=== PATIENT | female | born 1975 | race Caucasian/White ===

== ENCOUNTER → 2018-11-24 12:27 | Outpatient (CLI) | payer OTHER, SELFPAY ==
[2018-06-03 11:37] VITALS: BMI 20.7
--- NOTE | 2018-11-24 | IMM_PTH ---
PATIENT: MELODIE OSEI LOC: [facility] U#:[id number] AGE/SX: 49/F ROOM: RE11/24/[address]: Dr. Ramiro Morgan DDS : 1975 BED: DIS: SPEC #: [id number] RECD: 11/25/18 11:03 STATUS: KIKE SAMANTHA #: [id number] TIFFANIE: 11/24/18 00:[address]: Ramiro Morgan DEPT: IMMUNOHISTOCHEMISTRY RECD BY: Myriam Dumont ENTERED: 11/25/18 11:04 SP TYPE: IMMUNO OTHR DR: Leidy Amador, MOVING WORKER-Gwyn Tissues: Skin of lip, NOS Procedures: MACRO (add) Vimentin (add) Pankeratin (initial) PHYSICIAN & INSTITUTION [place] [id number] SPECIMEN INFORMATION: Tissue Source: Skin of lower lip, biopsy Clinical Info: Three-month history Specimen Number: [id number] CPT code: 93211, 63156 x2 METHODOLOGY: Deparaffinized sections of prefer/formalin-fixed tissue or PAP/DQ stained slides are incubated with monoclonal/polyclonal antibodies/oligonucleotide probes. Localization is made via biotin free immunoperoxidase method. Appropriate controls are performed and reacted as expected. Results on target cell population are indicated in the following table: RESULTS: ANTIBODY / CLONE RESULT AE1-3 (AE1/AE3/PCK26) negative Vimentin (V9) positive Macro (HAM-56) positive These tests were developed and their performance characteristics determined by [facility]. They may not have been cleared or approved by the U.S. Food and Drug Administration. The FDA has determined that such clearance or approval is not necessary. The above immunohistochemical/dualISH markers are ordered and reviewed by the Pathologist. INTERPRETATION: Skin of lower lip, biopsy: Consistent with reactive and reparative change. AM:otis 11/26/18
--- NOTE | 2018-11-24 | LIP_PTH ---
PATIENT: MELODIE OSEI LOC: [facility] U#:[id number] AGE/SX: 49/F ROOM: RE11/24/[address]: Dr. 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 Fibrosis, chronic inflammation and histiocytic proliferation. No evidence of malignancy. See comment. AM:otis 11/25/18 COMMENT The findings may represent a ruptured and/or blocked duct with associated inflammation and reactive fibrosis. Clinical correlation is suggested. Iron stain with matched control reveals focal iron deposition consistent with reactive change. Immunohistochemistry ([id number]) supports the above diagnosis. Case has been reviewed in consultation with Dr. Chilel who concurs with the above diagnosis. IDC:[email or web address] MICROSCOPIC DESCRIPTION Slides are reviewed. GROSS DESCRIPTION Received in fixative is one container labeled with the patient's name and designated lower lip. The specimen consists of two pieces of delvalle mucosal tissue measuring in aggregate 1 x 0.3 x 0.2 cm. The entire specimen is submitted in one cassette. / NIRAJ:otis 11/24/18 TC:3 CPT: 71897, 62524
== END ==
PROVIDERS: Family Provider Nurse Practitioner; PCP Nurse Practitioner; Referring Provider Dentist Oral and Maxillofacial Surgery; Visit Provider Dentist Oral and Maxillofacial Surgery
DX: K11.8 Other diseases of salivary glands (principal); K13.5 Oral submucous fibrosis
CPT/HCPCS: 88304; 88305; 88313; 88341; 88342

== ENCOUNTER → 2019-04-26 09:02 | Outpatient (CLI) | payer OTHER, SELFPAY ==
[2019-03-01 13:13] VITALS: BMI 20.7
--- NOTE | 2019-04-26 09:06 | US_ITS ---
STUDY: THYROID ULTRASOUND REASON FOR EXAM: Female, 43 years old. Thyromegaly on exam. TECHNIQUE: Ultrasound evaluation of the thyroid was performed with real-time and static perry-scale imaging. COMPARISON: None. FINDINGS: RIGHT LOBE: The right lobe of the thyroid gland measures 5.4 x 2.2 x 1.5 cm. There is a homogeneous echotexture. Mixed solid and cystic nodule in the mid thyroid lobe measures 1.9 x 1.4 x 1.1 cm. 2 solid hyperechoic nodules measuring 0.7 x 0.7 x 0.4 cm and 0.8 x 0.8 x 0.5 cm respectively are also located in the right mid thyroid lobe. These nodules have irregular margins with intranodular Doppler vascularization. LEFT LOBE: The left lobe of the thyroid gland measures 4.9 x 2.0 x 1.2 cm. There is a homogeneous echotexture. Mixed solid and cystic nodule in the upper pole measuring 1.6 x 1.1 x 0.8 cm. This has irregular margins with intranodular Doppler vascularization. Smaller second solid nodule in the middle portion of the gland measuring 0.4 x 0.5 x 0.2 cm. This has regular margins with intranodular Doppler vascularization. ISTHMUS: The isthmus measures 3 mm. US/Thyroid IMPRESSION: 1. Mixed solid and cystic nodule in the right mid thyroid lobe measures 1.9 x 1.4 x 1.1 cm. This is feasible for ultrasound-guided FNA biopsy. 2. Small solid thyroid nodules in the right thyroid lobe measure 0.7 x 0.7 x 0.4 cm and 0.8 x 0.8 x 0.5 cm. These are also in the right mid thyroid lobe. They are too small for ultrasound-guided FNA. 3. Mixed solid and cystic nodule in the left mid thyroid lobe measures 1.6 x 1.1 x 0.8 cm. This is feasible for ultrasound-guided FNA biopsy if desired. 4. Small solid thyroid nodule in the upper pole of the left thyroid lobe measures 0.4 x 0.5 x 0.2 cm. This is too small for ultrasound-guided FNA. Electronically Signed: Louie Phillips MD at 9:09 EDT , Service support ,
== END ==
PROVIDERS: PCP Nurse Practitioner; Referring Provider Nurse Practitioner; Visit Provider Nurse Practitioner
DX: E04.9 Nontoxic goiter, unspecified (principal)
CPT/HCPCS: 76536

== ENCOUNTER → 2019-06-06 | Outpatient (CLI) | payer OTHER, SELFPAY ==
[2019-06-06 13:29] VITALS: BMI 20.7
--- NOTE | 2019-06-07 | ASPS_PTH ---
PATIENT: MELODIE OSEI [facility] U#:[id number] AGE/SX: 43/F ROOM: RE06/06/[address]: Dr. Bishop Devlin MD : 1975 BED: DIS: 06/06/2019 SPEC #: [id number] RECD: 06/07/19 12:00 STATUS: KIKE SINGH #: [id number] TIFFANIE: 06/07/19 00:[address]: Bishop Devlin DEPT: CYTOLOGY RECD BY: Toby Mclaughlin ENTERED: 06/07/19 12:00 SP TYPE: ASPIRATION OTHR DR: Leidy Amador, PUBLIC AFFAIRS DIRECTOR-Gwyn Tissues: A - Thyroid gland, NOS B - Thyroid gland, NOS Procedures: Special Stain Group II Cytology Other HEADER OPERATION: Ultrasound-guided fine needle aspiration bilateral thyroid PRE-OP DIAGNOSIS: Multinodular goiter E04.2 TISSUE SUBMITTED: A - Fine needle aspiration right thyroid slides x12, B - Fine needle aspiration left thyroid slides x12 DIAGNOSIS CYTOLOGY A. Right thyroid nodule, ultrasound-guided FNA (smears): Consistent with benign follicular nodule/colloid nodule. Adequate for evaluation. B. Left thyroid nodule, ultrasound-guided FNA (smears): Consistent with benign follicular nodule/colloid nodule with focal cystic changes. Adequate for evaluation. NIRAJ:otis 06/08/19 COMMENT Correlation with clinical, radiologic findings and appropriate follow up are necessary. CYTOLOGY STUDY Slides are reviewed. CYTOLOGY GROSS A - Received are 12 smears labeled with the patient's name and designated per the requisition as right thyroid. Submitted for staining. B - Received are 12 smears labeled with the patient's name and designated per the requisition as left thyroid. Submitted for staining. / otis 06/07/19 TC:5 CPT: 41726 x2
== END | disposition home or self-care (01) ==
LOC: LABSPEC 15:23
PROVIDERS: PCP Nurse Practitioner; Referring Provider Surgery; Visit Provider Surgery
DX: E04.2 Nontoxic multinodular goiter (principal)
CPT/HCPCS: 88161; 88313

== ENCOUNTER 2020-06-07 07:11 | Outpatient (RCR) | payer OTHER, SELFPAY ==
[2019-06-06 13:29] VITALS: BMI 20.7
== END 2020-07-24 23:59 ==
LOC: IMMUN 07:11
PROVIDERS: PCP Nurse Practitioner; Referring Provider Family Medicine; Visit Provider Family Medicine
DX: Z23 Encounter for immunization (principal)
CPT/HCPCS: 0001A; 91300

== ENCOUNTER → 2020-10-08 13:01 | Outpatient (CLI) | payer OTHER, SELFPAY ==
[2019-06-06 13:29] VITALS: BMI 20.7
--- NOTE | 2020-10-08 13:04 | US_ITS ---
STUDY: THYROID ULTRASOUND REASON FOR EXAM: Female, 44 years old. MULTIPLE THYROID NODULES TECHNIQUE: Ultrasound evaluation of the thyroid was performed with real-time and static perry-scale imaging. COMPARISON: Comparison is made with prior study of 04/26/2019. FINDINGS: RIGHT LOBE: The right lobe of the thyroid gland is enlarged and measures 5.3 cm x 2.4 cm x 1.04 cm. There is a homogeneous echotexture. Stable 2 cm x 1.5 cm x 1.1 cm solid nodule with small cysts within it is once again seen in the mid and lower pole of the right lobe. There are 2 stable slightly hyperechoic nodules in the right mid thyroid. The larger measures 8 mm x 7 mm x 8 mm. LEFT LOBE: The left lobe of the thyroid gland is mildly enlarged and measures 4.9 cm x 2 cm x 1 cm. There is a homogeneous echotexture. Limits again, 4 nodules are seen. The largest measures 1.8 cm x 1.3 cm x 0.8 cm. It is mostly solid and cystic nodules in the upper pole. ISTHMUS: The isthmus measures 2 mm. The regional lymph nodes are normal. US/Thyroid IMPRESSION: Enlargement of both lobes of the thyroid more prominent on the right side with stable bilateral thyroid nodules. Electronically Signed: Rafi Maria MD at 14:44 EDT , Service support ,
== END ==
PROVIDERS: PCP Nurse Practitioner; Referring Provider Nurse Practitioner; Visit Provider Nurse Practitioner
DX: E04.2 Nontoxic multinodular goiter (principal)
CPT/HCPCS: 76536

== ENCOUNTER → 2021-01-28 16:24 | Outpatient (CLI) | payer OTHER, SELFPAY | PROVIDERS: PCP Nurse Practitioner; Visit Provider Family Medicine | DX: Z23 Encounter for immunization (principal) ==

== ENCOUNTER → 2022-03-06 | Outpatient (CLI) | payer OTHER, SELFPAY ==
--- NOTE | 2022-03-06 15:29 | US_ITS ---
EXAM: US SOFT TISSUES HEAD AND NECK, THYROID CLINICAL INDICATION: multiple thyroid nodules TECHNIQUE: Thomas scale and color doppler imaging was performed of the thyroid gland. This report was created using [employer] report generation technology. COMPARISON: US Thyroid dated 10/08/2020 and 04/26/2019 FINDINGS: LEFT THYROID LOBE: Left thyroid lobe measures 5.2 x 2.1 x 1.3 cm. Multinodular echo pattern. Dominant 18 mm left thyroid nodule again noted to be solid and cystic in nature, wider than tall with ill-defined margins and without microcalcification consistent with TI-RADS category: TR2. This nodule is not suspicious and no FNA or follow-up is necessary. Stable additional 6 mm nodule within the upper pole of the left lobe. RIGHT THYROID LOBE: Right thyroid lobe measures 5.8 x 2.4 x 1.7 cm. Multinodular echotexture. Dominant nodule within the right lobe appears slightly larger on the current exam measuring 2.4 cm in maximum diameter. This nodule is mixed cystic and solid, isoechoic, wheke-urms-gbtn, smoothly marginated and contains no echogenic foci. TI-RADS points: 2. TI-RADS category: TR2. This nodule is not suspicious and no FNA or follow-up is necessary. Additional 1.1 and 0.6 cm more solid right thyroid nodules not significantly changed in size from prior exam. These nodules are solid or almost completely solid, isoechoic, [id number], smoothly marginated and contains a no echogenic foci. TI-RADS points: 3. TI-RADS category: TR3. Nodules are mildly suspicious but no FNA or follow-up is necessary given the small size of this nodule. ISTHMUS: Isthmus measures 2.4 mm in AP dimension. No thyroid nodules are present. US/Thyroid IMPRESSION: Bilateral thyroid nodules with mild interval increase of the dominant right nodule. See discussion above. Electronically Signed: Nolan Stockton MD at 8:24 EST ,
== END | disposition home or self-care (01) ==
LOC: US 15:28
PROVIDERS: PCP Nurse Practitioner Family; Referring Provider Nurse Practitioner Family; Visit Provider Nurse Practitioner Family
DX: E04.2 Nontoxic multinodular goiter (principal)
CPT/HCPCS: 76536

== ENCOUNTER → 2023-05-22 | Outpatient (CLI) | payer OTHER, SELFPAY ==
--- NOTE | 2023-05-22 12:45 | US_ITS ---
STUDY: THYROID ULTRASOUND REASON FOR EXAM: Female, 47 years old. multiple thyroid nodules TECHNIQUE: Ultrasound evaluation of the thyroid was performed with real-time and static perry-scale imaging. COMPARISON: None. FINDINGS: RIGHT LOBE: The right lobe of the thyroid gland measures 5.8 x 2.5 x 1.6 cm. There is a heterogeneous echotexture. There are stable complex solid and cystic nodules largest again measures approximately 2.4 x 2.0 x 1.4 cm. Nodules are mixed cystic and solid, hyperechoic or isoechoic, gznzs-arvp-umja, smoothly marginated and contains no echogenic foci. TI-RADS points: 2. TI-RADS category: TR2. Nodules are not suspicious and no FNA or follow-up is necessary. LEFT LOBE: The left lobe of the thyroid gland measures 5.5 x 2.0 x 1.3 cm. There is a heterogeneous echotexture. There is a stable 0.7 x 0.6 x 0.3 cm hypoechoic nodule. This nodule is solid or almost completely solid, hypoechoic, kvvyf-mydg-axji, smoothly marginated and contains no echogenic foci. TI-RADS points: 4. TI-RADS category: TR4. This nodule is moderately suspicious but no FNA or follow-up is necessary given the small size of this nodule.And a stable solid and cystic 2.0 x 1.6 x 1.0 cm nodule. This nodule is mixed cystic and solid, hyperechoic or isoechoic, aqjav-[id number], smoothly marginated and contains no echogenic foci. TI-RADS points: 2. TI-RADS category: TR2. This nodule is not suspicious and no FNA or follow-up is necessary. ISTHMUS: The isthmus measures 0.3 cm. The regional lymph nodes are normal. Managing Manager notes a likely parathyroid nodule measuring 1.8 x 0.8 x 0.8 cm inferior to the left thyroid lobe. US/Thyroid IMPRESSION: Stable enlarged heterogeneous thyroid gland with bilateral nodules as described. Categorization and follow-up as described. Likely parathyroid nodule noted inferior to the left thyroid lobe. Electronically Signed: Paidlla Miller MD at 15:43 EDT ,
== END | disposition home or self-care (01) ==
LOC: US 12:44
PROVIDERS: PCP Nurse Practitioner Family; Referring Provider Nurse Practitioner Family; Visit Provider Nurse Practitioner Family
DX: E04.2 Nontoxic multinodular goiter (principal)
CPT/HCPCS: 76536

== ENCOUNTER → 2025-02-06 | Outpatient (CLI) | payer OTHER, SELFPAY ==
[2025-02-06 10:42] LABS: Hematocrit 41.1 % (37-47); Hemoglobin 13.7 g/dL (12.0-15.0); Immature Granulocytes Count 0.010 X10^3/uL (0.0-0.0); Mean Corp Hgb Conc 33.3 g/dL (32-36); Mean Corpuscular Volume 91.1 fL (81-99); Mean Platelet Vol. 8.6 fl (6.2-12.0); NRBC Flagged by Analyzer 0 % (0-5); Platelet Count 274 K/mm3 (150-450); RBC Distribution Width CV 11.8 % (11.6-14.6); RBC Distribution Width SD 39.8 fl (35.1-43.9); Red Blood Count 4.51 M/mm3 (4.2-5.4); White Blood Count 5.2 K/mm3 (4.4-11.0)
[2025-02-06 10:54] LABS: PTHIN 50 pg/mL (11-61)
[2025-02-06 11:20] LABS: AST(SGOT) 15 U/L (<=31); Alanine Aminotransfer ALT/SGPT 9 U/L (<=34); Albumin, Serum 4.5 g/dL (3.5-5.0); Alkaline Phosphatase 44 U/L (35-104); Anion Gap 11 (5-15); BUN 13 mg/dL (4-19); BUN/Creat Ratio 16.0 RATIO (10-20); Calcium,Total 9.3 mg/dL (7.6-11.0); Carbon Dioxide 24.4 mmol/L (21.0-32.0); Chloride 104 mmol/L (98-108); Cholesterol 222 mg/dL (<=200); Ferritin 81 ng/mL (22-378); Follicle Stimulating Hormone 8.1 mIU/mL; Globulin 2.9 g/dL (2.2-4.2); Glucose 106 mg/dL (70-99); Low Density Lipoprotein Calc. 155 mg/dL; Potassium 4.1 mmol/L (3.3-5.1); Triglycerides 145 mg/dL; Very Low Density Lipoprotein 29 mg/dL (5-40); Vitamin D,25 Hydroxy 28.4 ng/mL (30-100); cholesterol:hdl ratio screen 5.41
[2025-02-06 11:35] LABS: Iron 192 ug/dL (50-170)
== END | disposition home or self-care (01) ==
LOC: MTLAB 09:25
PROVIDERS: PCP Family Medicine; Referring Provider Family Medicine; Visit Provider Family Medicine
DX: Z13.1 Encounter for screening for diabetes mellitus (principal); Z13.220 Encounter for screening for lipoid disorders; R42 Dizziness and giddiness; E04.1 Nontoxic single thyroid nodule; E21.5 Disorder of parathyroid gland, unspecified; N95.1 Menopausal and female climacteric states
CPT/HCPCS: 36415; 80053; 80061; 82306; 82728; 83001; 83002; 83036; 83540; 83970; 84439; 84443; 85025

== ENCOUNTER → 2025-02-11 | Outpatient (CLI) | payer OTHER, SELFPAY ==
--- OUTSIDE RECORDS SUMMARY | 2025-02-11 07:53 | XMS RPT_ITS | CCD ---
Author Organization [facility] Care Team Providers Care Service Worker Helper Name Role Phone Leidy Amador E Unavailable Bishop Wyman Unavailable Sintia Mckenzie Unavailable Unavailable Chantal Delgado Unavailable Unavailable Chantal Motley Unavailable Unavailable Slarb, Rosetta Unavailable Unavailable Unavailable Unavailable Nghia Jefferson Unavailable Unavailable Unavailable Unavailable Sintia Mckenzie Unavailable Unavailable Leidy Amador CNP Unavailable Bishop Wyman MD Unavailable Yana KOHLER, Rosetta Unavailable Unavailable Nghia Jefferson LPN Unavailable Unavailable Unavailable Unavailable Effie Bran CNP Unavailable Effie Bran CNP Unavailable Marjorie Leidy Unavailable Wily Kwon MA Unavailable Unavailable Effie Bran CNP Attending Unavailable Effie Bran CNP Referring Unavailable Effie Bran CNP Consulting Unavailable Leidy Amador CNP Primary Care Provider Leidy Amador CNP Primary Care Provider JESSICA Bran Primary Care Provider [phone] JESSICA Bran Referring Provider Dr. Loreto Story Attending Provider Effie Bran CNP Primary Care Provider Effie Bran CNP Primary Care Provider SHANT, EFFIE Primary Care Unavailable BALAJI, BISHOP P Attending Unavailable SHANT, EFFIE Primary Care Unavailable BALAJI, BISHOP P Referring Unavailable SHANT, EFFIE Primary Care Unavailable BALAJI, BISHOP P Referring Unavailable SHANT, EFFIE Primary Care Unavailable BALAJI, BISHOP P Referring Unavailable SHANT, EFFIE Primary Care Unavailable BALAJI, BISHOP P Attending Unavailable Unallocated , Noelle Provider Primary Care [facility] JANETT LIU Attending Unavailable SHANT, EFFIE Referring Unavailable SHANT, EFFIE Primary Care Unavailable SHANT, EFFIE Primary Care Unavailable JANETT LIU Referring Unavailable Shant ELECTRON GUN ASSEMBLER-C, Effie Primary Care Provider Shant ELECTRON GUN ASSEMBLER-C, Effie Referring Provider Dosjaida GONZALEZ, Dr. Dangelo Attending Provider [phone] Austin Still MD Unavailable NONE, NONE Unavailable Unavailable Shant FOREIGN SERVICE OFFICER, Effie Unavailable Shant ELECTRON GUN ASSEMBLER-C, Effie Primary Care Physician Dosjaida GONZALEZ, Dr. Dangelo Attending Physician [phone] Shant ELECTRON GUN ASSEMBLER-C, Effie Primary Care Physician [phone] Shant ELECTRON GUN ASSEMBLER-C, Effie Referring Provider Dosjaida GONZALEZ, Dr. Dangelo Attending Physician [phone] Loreto Story Attending Unavailable Shant, Effie Referring Unavailable Shant, Effie Primary Care Unavailable Loreto Story Attending Unavailable Shant, Effie Referring Unavailable Shant, Effie Primary Care Unavailable DosLoreto sena Attending Unavailable Shant, Effie Primary Care Unavailable Shant, Effie Referring Unavailable Shant, Effie Primary Care Unavailable Loreto Story Attending Unavailable Shant, Effie Referring Unavailable Shant, Effie Primary Care Unavailable Loreto Story Attending Unavailable Shant, Effie Referring Unavailable DosLoreto sena Attending Unavailable Shant, Effie Referring Unavailable Shant, Effie Primary Care Unavailable Medications Current Medications Medication Drug Class(es) Dates Sig (Normalized) Sig (Original) doxycycline hyclate 20 mg oral tablet (5 sources) Tetracycline-clas s Drug Start: 06-02-2022 Doxycycline Hyclate 20 mg tablet Active NMA PO June 01, 2022 11:00pm Complies with drug therapy Start: 06-02-2022 Doxycycline Hy clate Active TAB PO June 02, 2022 12:00am doxycycline hycl ate 50 mg oral capsule (50 mg) Active Comments: Dr. Chauhan Comment on above: Dr. Chauhan ibuprofen 600 mg oral tablet (5 sources) Nonsteroidal Anti-inflammatory Drug Start: 01-26-2017 take 1 tablet by mouth once Ibuprofen 600 mg tablet Active 600 mg PO ONCE January 26, 2017 12:00am Complies with drug therapy Completed/Discontinued Medications Medication Drug Class(es) Dates Sig (Normalized) Sig (Original) acyclovir 400 mg oral tablet (14 sources) Herpesvirus Nucleoside Analog DNA Polymerase Inhibitor, Herpes Simplex Virus Nucleoside Analog DNA Polymerase Inhibitor, Herpes Zoster Virus Nucleoside Analog DNA Polymerase Inhibitor Start: 08-03-2019 End: 08-09-2019 take 1 tablet by mouth three times daily Zovirax 400 MG Oral Tablet 1 (one) Tablet tid for 6 days Quantity: 15 {Tablet} Refills: 0 Ordered: 03-Aug-2019 BinduLeidy garcia Start : 03-Aug-2019 End : 09-Aug-2019 Inactive Start: 08-22-2016 End: 02-17-2017 take 1 tablet by mouth three times daily Acyclovir 400 MG Oral Tablet 1 (one) Tablet Tablet tid for 5 days Quantity: 15 {QS} Refills: 3 Ordered: 17-Feb-2017 Chantal Motley RN Start : 22-Aug-2016 End : 17-Feb-2017 Inactive amoxicillin 875 mg / clavulanate 125 mg oral tablet (18 sources) Penicillin-class Antibacterial Start: 04-12-2018 End: 04-26-2018 take 1 tablet by mouth twice daily Amoxicillin-Pot Clavulanate 875-125 MG Oral Tablet 1 (one) Tablet PO BID for 14 days Quantity: 28 {Tablet} Refills: 0 Ordered: 12-Apr-2018 Chantal Delgado Start : 12-Apr-2018 End : 26-Apr-2018 Inactive Start: 02-17-2017 End: 03-03-2017 take 1 tablet by mouth twice daily Augmentin 875-125 MG Oral Tablet 1 (one) Tablet bid for 14 days Quantity: 28 {Tablet} Refills: 0 Ordered: 17-Feb-2017 Chantal Delgado Start : 17-Feb-2017 End : 03-Mar-2017 Inactive bifidobacterium infantis 4 mg oral capsule (9 sources) Start: 07-04-2016 End: 02-17-2017 take 1 capsule by mouth once daily Align 4 MG Oral Capsule 1 (one) Capsule daily for 0 days Quantity: 30 {Capsule} Refills: 0 Ordered: 17-Feb-2017 Chantal Motley RN Start : 04-Jul-2016 End : 17-Feb-2017 Inactive cholecalciferol 0.025 mg oral capsule (14 sources) Vitamin D Start: 04-29-2019 End: 10-02-2020 take 2 capsules by mouth once daily Vitamin D3 25 MCG (1000 UT) Oral Capsule 2 (two) Capsule daily for 0 days Quantity: 60 {Capsule} Refills: 0 Ordered: 02-Oct-2020 Gisela Daniels LPN Start : 29-Apr-2019 End : 02-Oct-2020 Inactive Start: 09-05-2014 End: 05-01-2015 take 1 capsule by mouth every week VITAMIN D3, 2000UNIT (Oral Capsule) 1 (one) Capsule weekly for 0 days Quantity: 30 {Capsule} Refills: 0 Ordered: 01-May-2015 Rosetta Millan LPN Start : 05-Sep-2014 End : 01-May-2015 Discontinued ciprofloxacin 500 mg oral tablet (9 sources) Quinolone Antimicrobial Start: 07-30-2017 End: 08-06-2017 take 1 tablet by mouth twice daily Cipro 500 MG Oral Tablet 1 (one) Tablet bid for 7 days Quantity: 14 {Tablet} Refills: 0 Ordered: 30-Jul-2017 Leidy Amador Start : 30-Jul-2017 End : 06-Aug-2017 Inactive ergocalciferol 1.25 mg oral capsule (9 sources) Provitamin D2 Compound Start: 06-06-2014 End: 09-05-2014 take 1 capsule by mouth two times weekly ERGOCALCIFEROL, [id number] (Oral Capsule) 1 (one) Capsule Capsule twice weekly for 0 days Quantity: 24 {QS} Refills: 0 Ordered: 05-Sep-2014 Rosetta Millan LPN Start : 06-Jun-2014 End : 05-Sep-2014 Discontinued nitrofurantoin, macrocrystals 25 mg / nitrofurantoin, monohydrate 75 mg oral capsule (9 sources) Nitrofuran Antibacterial Start: 09-04-2020 End: 09-11-2020 take 1 capsule by mouth twice daily Macrobid 100 MG Oral Capsule 1 (one) Capsule bid for 7 days Quantity: 14 {Capsule} Refills: 0 Ordered: 04-Sep-2020 Leidy Amador Start : 04-Sep-2020 End : 11-Sep-2020 Inactive Start: 02-20-2020 take 1 capsule by mo [facility] twice daily Macrobid 100 MG Oral Capsule 1 (one) Capsule bid for 7 days Quantity: 14 {Capsule} Refills: 0 Ordered: 20-Feb-2020 Leidy Amador CNP ALONDRALeidy Start : 20-Feb-2020 Active Start: 07-24-2017 End: 07-31-2017 take 1 capsule by mouth twice daily Macrobid 100 MG Oral Capsule 1 (one) Capsule bid for 7 days Quantity: 14 {Capsule} Refills: 0 Ordered: 24-Jul-2017 Binducastillocrescencio CANTULeidy ALONDRA Leidy Worthy Start : 24-Jul-2017 End : 31-Jul-2017 Inactive ondansetron 8 mg oral tablet (3 sources) Serotonin-3 Receptor Antagonist Start: 03-03-2022 End: 03-08-2024 take 1 tablet by mouth once daily for nausea and vomiting ondansetron (Zofran) 8 MG tablet take 1 tablet by mouth once daily if needed for nausea and vomiting 03/03/2022 03/08/2024 Discontinued phenazopyridine hydrochloride 100 mg oral tablet (9 sources) Start: 09-04-2020 End: 09-06-2020 take 1 tablet by mouth three times daily Pyridium 100 MG Oral Tablet 1 (one) Tablet tid for 2 days Quantity: 6 {Tablet} Refills: 0 Ordered: 04-Sep-2020 Leidy Amador Start : 04-Sep-2020 End : 06-Sep-2020 Inactive Start: 02-20-2020 take 1 tablet by [facility] three times daily Pyridium 100 MG Oral Tablet 1 (one) Tablet tid for 2 days Quantity: 6 {Tablet} Refills: 0 Ordered: 20-Feb-2020 Marjorie ALONDRALeidy FOREIGN SERVICE OFFICERLeidy Start : 20-Feb-2020 Active Start: 07-24-2017 End: 07-26-2017 take 1 tablet by mouth three times daily Pyridium 100 MG Oral Tablet 1 (one) Tablet tid for 2 days Quantity: 6 {Tablet} Refills: 0 Ordered: 24-Jul-2017 Leidy Amador CNP, CNP, Mary E Start : 24-Jul-2017 End : 26-Jul-2017 Inactive sulfamethoxazole 800 mg / trimethoprim 160 mg oral tablet (9 sources) Dihydrofolate Reductase Inhibitor Antibacterial, Sulfonamide Antimicrobial Start: 02-04-2016 End: 02-11-2016 take 1 tablet by mouth twice daily Bactrim DS 800-160 MG Oral Tablet 1 (one) Tablet bid for 7 days Quantity: 14 {Tablet} Refills: 0 Ordered: 04-Feb-2016 Leidy Amador Start : 04-Feb-2016 End : 11-Feb-2016 Inactive NEGATED: Highlighted row has not occurred!drug or medication (2 sources) No Known Historical Medications NEGATED: Highlighted row has not occurred!No Known Historical Medications (2 sources) No Known Historical Medications Problems Active Problems Problem Classification Problem Date Documented Date Episodic/Chronic Coronary atherosclerosis and other heart disease (20 sources) Coronary atherosclerosis and other heart disease Deficiency and other anemia (6 sources) Deficiency and other anemia Disorders of lipid metabolism (6 sources) Raised low density lipoprotein cholesterol; Translations: [Elevated LDL cholesterol level] 10-12-2020 Chronic Comment on above: with low hdl told to repeat fasting in a year.Get labs a week before next apt inAug 2021, to call for apt and adding lab recheck lipids since has been a year and a halflow HDL and mildly elevated LDL in past, no meds. Genitourinary symptoms and ill-defined conditions (20 sources) Urinary symptoms ; Translations: [Blood in urine] Resolved: 04-15-2019 04-12-2018 Episodic Comment on above: from menses? Headache; including migraine (8 sources) Cervicogenic headache; Translations: [Cervicogenic headache] Onset: 12-29-2024 05-17-2024 Episodic Malaise and fatigue (10 sources) Fatigue; Translations: [Fatigue] 02-20-2020 Episodic Nausea and vomiting (18 sources) Nausea; Translations: [Nausea] Resolved: 07-24-2017 07-24-2017 Episodic Noninfectious gastroenteritis (18 sources) Gastroenteritis; Translations: [Gastroenteritis] 04-12-2018 Episodic Comment on above: early on in illness now resolved (from food seafood eating out)Check electrolytes and orthostatic BP Nutritional deficiencies (20 sources) Vitamin D deficiency; Translations: [Vitamin D deficiency] 04-12-2018 Chronic Comment on above: resolved Other bone disease and musculoskeletal deformities (20 sources) Segmental and somatic dysfunction; Translations: [Segmental and somatic dysfunction of cervical region] 01-26-2017 Episodic Other bone disease and musculoskeletal deformities (2 sources) Segmental and somatic dysfunction of cervical region; Translations: [Nonallopathic lesions, cervical region] Onset: 12-29-2024 05-19-2023 Episodic Other bone disease and musculoskeletal deformities (2 sources) Segmental and somatic dysfunction of lumbar region; Translations: [Nonallopathic lesions, lumbar region] Onset: 12-29-2024 05-19-2023 Episodic Other bone disease and musculoskeletal deformities (2 sources) Segmental and somatic dysfunction of pelvic region; Translations: [Nonallopathic lesions, pelvic region] Onset: 12-29-2024 05-19-2023 Episodic Other bone disease and musculoskeletal deformities (2 sources) Segmental and somatic dysfunction of thoracic region; Translations: [Nonallopathic lesions, thoracic region] Onset: 12-29-2024 05-19-2023 Episodic Other connective tissue disease (2 sources) Muscle pain; Translations: [Myalgia, unspecified site] Onset: 10-11-2024 10-11-2024 Episodic Other endocrine disorders (2 sources) Disorder of parathyroid gland; 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 Other injuries and conditions due to external causes (2 sources) Motion sickness; Translations: [Motion sickness] 03-03-2022 Episodic Other lower respiratory disease (2 sources) Snoring; Translations: [Snoring] 03-03-2022 Episodic Comment on above: wants to hold off on sleep study. BP a little up today but will monitor. she would be a good candidate for home sleep study if needed.mainly when lays on back. spouse possibly waking her multiple times per night, he snores as well. Other non-traumatic joint disorders (10 sources) Joint pain; Translations: [Arthralgia] Resolved: 04-15-2019 04-12-2018 Episodic Comment on above: work up lupus Other nutritional; endocrine; and metabolic disorders (2 sources) Body mass index 25-29 - overweight; Translations: [BMI 25.0-25.9,adult] 02-20-2020 Chronic Other nutritional; endocrine; and metabolic disorders (4 sources) Cholesterol level - finding; Translations: [Low HDL (under 40)] 10-12-2020 Chronic Comment on above: to improve diet, rep eat in ayear Other nutritional; endocrine; and metabolic disorders (6 sources) Weight gain; Translations: [Weight gain] 02-20-2020 Episodic Other nutritional; endocrine; and metabolic disorders (2 sources) Raised low density lipoprotein cholesterol; Translations: [Elevated LDL cholesterol level] 02-20-2020 Episodic Other nutritional; endocrine; and metabolic disorders (1 source) Body mass index 25-29 - overweight; Translations: [BMI 25.0-25.9,adult] 10-11-2020 Episodic Other nutritional; endocrine; and metabolic disorders (3 sources) Overweight in adulthood with body mass index of 25 or more but less than 30; Translations: [BMI 25.0-25.9,adult] 10-11-2020 Episodic Other screening for suspected conditions (not mental disorders or infectious disease) (20 sources) Patient encounter status; Translations: [Encounter for screening mammogram for breast cancer (Renamed from Encounter for screening mammogram for malignant neoplasm of breast)] Onset: 06-22-2024 10-11-2020 Episodic Comment on above: normal Other skin disorders (10 sources) Eruption; Translations: [Rash] Resolved: 07-24-2017 07-24-2017 Episodic Comment on above: viral ? will observe Other upper respiratory disease (20 sources) Nasal congestion; Translations: [Nasal congestion] Resolved: 07-24-2017 02-17-2017 Episodic Other upper respiratory disease (10 sources) Nasal discharge; Translations: [Nasal drainage] Resolved: 04-15-2019 04-12-2018 Episodic Other upper respiratory infections (20 sources) Chronic sinusitis, unspecified; Translations: [Bacterial sinusitis] Resolved: 04-15-2019 04-12-2018 Chronic Other upper respiratory infections (18 sources) Acute sinusitis; Translations: [Acute sinusitis, unspecified] 04-12-2018 Episodic Residual codes; unclassified (20 sources) Other general symptoms and signs; Translations: [Abnormal sensation] Resolved: 04-15-2019 04-12-2018 Episodic Residual codes; unclassified (9 sources) Body Mass Index between 19-24, adult; Translations: [Finding of body mass index] 04-12-2018 Episodic Residual codes; unclassified (13 sources) Body mass index 20-24 - normal; Translations: [BMI 24.0-24.9, adult] Resolved: 03-03-2022 10-11-2020 Episodic Residual codes; unclassified (18 sources) Non-smoker; Translations: [Nonsmoker] 10-11-2020 Episodic Spondylosis; intervertebral disc disorders; other back problems (6 sources) Neck pain; Translations: [Cervicalgia] 05-19-2023 Episodic Thyroid disorders (19 sources) Goiter; Translations: [Multinodular goiter] Onset: 06-06-2019 02-20-2020 Chronic Comment on above: ultrasound done Sep 2020 repeat in a year repeat now. has rigo ral > 1cm nodules, had biopsy by Dr. Carpio in pastultrasound done Sep 2020 repeat in a year Unclassified (20 sources) Unclassified (16 sources) Abdominal hernia Unclassified (20 sources) Screening for thyroid disorder; Translations: [Screening status] 04-12-2018 Comment on above: normal Unclassified (20 sources) Non-smoker; Translations: [Nonsmoker] 04-12-2018 Unclassified (16 sources) BMI 24.0-24.9, adult; Translations: [Body mass index 20-24 - normal] 02-20-2020 Unclassified (8 sources) Multiple thyroid nodules Unclassified (4 sources) BMI 25.0-25.9,adult Unclassified (4 sources) Weight gain Unclassified (4 sources) Thyroid enlargement Unclassified (2 sources) Encounter for screening mammogram for breast cancer (Renamed from Encounter for screening mammogram for malignant neoplasm of breast) Unclassified (2 sources) History of basal cell carcinoma (BCC) of skin Unclassified (1 source) Radiology Mammogram Onset: 05-06-2024 Urinary tract infections (18 sources) Urinary tract infectious disease; Translations: [UTI (urinary tract infection)] 04-12-2018 Episodic Past or Other Problems Problem Classification Problem Date Documented Da te Episodic/Chronic Abdominal hernia (20 sources) Hernia of abdominal cavity; Translations: [Abdominal hernia] Onset: 06-09-2014 04-12-2018 Episodic Comment on above: at incision of c sec tion Appendicitis and other appendiceal conditions (9 sources) Acute appendicitis; Translations: [Unspecified acute appendicitis] Onset: 06-08-2006 06-08-2006 Episodic Nonmalignant breast conditions (4 sources) Mammographic breast tissue appearance; Translations: [Dense breast tissue on mammogram] Onset: 09-16-2022 09-16-2022 Episodic Other non-epithelial cancer of skin (8 sources) History of malignant basal cell neoplasm of skin; Translations: [History of basal cell carcinoma (BCC) of skin] Onset: 09-16-2022 10-11-2020 Episodic Comment on above: [facility] se claritza Chauhan nowforehead and neck Unclassified (8 sources) PHYSICAL EXAM, ROUTINE (V70.0) Unclassified (9 sources) Ab 2 04-12-2018 Unclassified (14 sources) Patient encounter status; Translations: [Physical exam, routine] 04-12-2018 Unclassified (8 sources) Herpes simplex virus type 1 (HSV-1) dermatitis Unclassified (18 sources) Unspecified Diagnosis 04-12-2018 Unclassified (20 sources) BMI between 19-24,adult; Translations: [Finding of body mass index] 04-12-2018 Unclassified (6 sources) UTI symptoms Unclassified (8 sources) Arthralgia Unclassified (8 sources) Rash Unclassified (16 sources) Sinusitis, bacterial Unclassified (16 sources) Facial pressure Unclassified (8 sources) Nasal drainage Unclassified (4 sources) Recurrent cold sores Unclassified (6 sources) Elevated LDL cholesterol level Unclassified (2 sources) Low HDL (under 40) Urinary tract infections (2 sources) Urinary tract infections Viral infection (20 sources) Herpesviral vesicular dermatitis; 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] Onset: 03-06-2024 04-12-2018 Episodic Comment on above: lip Results Test Name Value Interpretation Reference Range Facility [facility]24 [facility] [address] [place] [id number] OFFICE VISIT Date of Service: 12/29/24 MR#: [id number] Acct: [id number] Name: DEB OSEI Rep #: [id number] : 1975 Provider: CARLOS Hansen Age/Sex: 49/F Location: [facility] [place] Status: Signed Intake Vital Signs 04/21/24 09:59 Height 5 ft 9 in Intake Visit Reasons: Back pain Chief Complaint: neck pain Qa Reviewer Required: No Accompanied by: Self Is patient in pain?: No Allergies No Known Allergies Allergy (Verified 12/29/24 14:01) Medications ???Medication ???Instructions ???Recorded ???Confirmed ???Type ibuprofen 600 mg tablet 600 mg PO ONCE 01/26/17 12/29/24 H istory doxycycline hyclate 20 mg tablet tablet PO 06/02/22 12/29/24 Histor y PFS Medical History Weight gain Multinodular goiter Chronic headaches Surgical History History of Hx of hernia repair History of appendectomy Family History Grandmother Colon cancer Diabetes Heart disease Sister Melanoma skin cancer Brother Thyroid disorder Grandfather Heart disease Other Depression Hypertension Myocardial infarction HPI Back pain Chief Complaint: Back pain/Lightheadedness Visit Number: 4 Details: Deb is a 49 y/o female here for follow up of neck and back pain. Continued c/o stiffness in her neck, upper back that extends into her bilateral traps, left side worse than right. Slight tenderness of left neck. Denies recent headaches-improved since last visit. Reports lightheadedness last couple days from sitting to standing. Denies dizziness, headache or balance issue. Her low back pain is intermittent. She receives regular massages which help decrease her pain. She denies new injury, numbness, tingling, or radiculopathy. She has been treating her pain with heat and stim at home. She states chiropractic adjustments are helpful in relieving her pain and discomfort but it gradually returns. Location: neck and shoulder blades Duration: frequent Aggravating or associated factors: driving,computer work, sleeping Relieving factors: chiro Treatment: chiro, massage Pain Quality: aching, dull and radiating Exam Musc General: Yes normal posture, normal gait and joint tenderness; No decreased range of motion Cervical Spine: Yes loss of normal cervical lordosis, Yes cervical muscular tenderness left greater than right diffuse , Yes cervical spasm left greater than right diffuse trapezius and paracervical muscles and Yes misalignment misalignment: C5, C6 and C7 Thoracic/Lumber: Yes thoracic and lumbar spine normal to inspection, Yes paraspinal tenderness on the left greater than right (upper/mid thoracic, lumbopelvic), Yes thoraco-lumbar spasm bilaterally (QL) in the lower lumbar and on the left greater than right (trap, levator) and Yes misalignment T3, T4, T5, T6, L3, L4, L5 and RIL Sacroiliac joints: on the right tender to palpation Office Procedures Procedures - Chiropractic Procedures Manipulation: Cervical C6, Lumbar L3, Thoracic T2 and T6 and Pelvis RIL Manipulation: 3-4 regions Traction, Mechanical: Yes Hot and/or cold packs: Yes Patient Response: positive Details: ???Acupuncture Patient instructions/Risk: Patient instructed not to move and informed of risks of moving. Risks associated with the procedure and the specific location were reviewed with the patient and consent was obtained. Acupuncture performed: E-stim was utilized-5setting. Acupoints Treated: GV20,BL10,GB20/21,YSABEL trap, KD6/7 Sterile, single use, solid filament needles were inserted at various depths and angles to release tight tissue, improve microcirculation and remove neuro-noxious chemicals via a myofascial twitch response. [place] were inserted, needle manipulation was performed. Needle removal was performed and pressure was applied when necessary. Minutes:20 Needle Number: .25x15,.20x30 Patient response: pos Patient Positioning: prone Acupuncture Acupuncture with ES: Yes Assessment and Plan Assessment and Plan (1) Segmental and somatic dysfunction of cervical region: Status: Acute (2) Segmental and somatic dysfunction of thoracic region: Status: Acute (3) Segmental and somatic dysfunction of lumbar region: Status: Acute (4) Segmental and somatic dysfunction of pelvic region: Status: Acute (5) Cervicogenic headache: Status: Acute Orders: Orders Chiropractic Treatments Today G44.86 - Cervicogenic headache, M99.01 - Segmental and somatic dysfunction of cervical region, M99.02 - Segmental and somatic dysfunction of thoracic region, M99.03 - Segmental and somati (more content not included)... Normal [facility] Chiropractic Reporton 2024 Chiropractic Report [facility] [facility] [address] [place] [address] OFFICE VISIT Date of Service: 12/05/24 MR#: [id number] Acct: [id number] Name: DEB OSEI Rep #: [id number] : 1975 Provider: CARLOS Hansen Age/Sex: 49/F Location: [facility] [place] Status: Signed Intake Vital Signs 04/21/24 09:59 Height 5 ft 9 in Intake Visit Reasons: Back pain Chief Complaint: neck pain Is patient in pain?: Yes (neck and upper back ) Pain scale (1-10): 2 Allergies No Known Allergies Allergy (Verified 12/05/24 09:41) Medications ???Medication ???Instructions ???Recorded ???Confirmed ???Type ibuprofen 600 mg tablet 600 mg PO ONCE 01/26/17 12/05/24 H istory doxycycline hyclate 20 mg tablet tablet PO 06/02/22 12/05/24 Histor y PFSH Medical History Weight gain Multinodular goiter Chronic headaches Surgical History History of Hx of hernia repair History of appendectomy Family History Grandmother Colon cancer Diabetes Heart disease Sister Melanoma skin cancer Brother Thyroid disorder Grandfather Heart disease Other Depression Hypertension Myocardial infarction HPI Back pain Chief Complaint: Back pain Visit Number: 3 Details: Deb is a 49 y/o female here for follow up of neck and back pain.Pt. advises her last adjustment was helpful in relieving her low back pain. She continues to c/o stiffness in her neck, upper back that extends into her bilateral traps. She c/o frequent CAROLINA's and also continues c/o left shoulder pain at times when taking off her shirt. She rates her pain 2/10 and would like to try acupuncture today. Her low back pain is intermittent. She receives regular massages which help decrease her pain. She denies new injury, numbness, tingling, or radiculopathy. She has been treating her pain with heat and stim at home. She states chiropractic adjustments are helpful in relieving her pain and discomfort but it gradually returns. Location: neck and shoulder blades Duration: frequent Aggravating or associated factors: driving,computer work, sleeping Relieving factors: chiro Treatment: chiro, massage Pain Quality: aching, dull and radiating Exam Musc General: Yes normal posture, normal gait and joint tenderness; No decreased range of motion Cervical Spine: Yes loss of normal cervical lordosis, Yes cervical muscular tenderness bilateral diffuse , Yes cervical spasm left greater than right diffuse trapezius and paracervical muscles and Yes misalignment misalignment: C5, C6 and C7 Thoracic/Lumber: Yes thoracic and lumbar spine normal to inspection, Yes paraspinal tenderness on the left greater than right (upper/mid thoracic, lumbopelvic), Yes thoraco-lumbar spasm bilaterally (QL) in the lower lumbar and on the left greater than right (trap, levator) and Yes misalignment T3, T4, T5, T6, L3, L4, L5 and RIL Sacroiliac joints: on the right tender to palpation Office Procedures Procedures - Chiropractic Procedures Manipulation: Cervical C6, Lumbar L3, Thoracic T2 and T6 and Pelvis RIL Manipulation: 3-4 regions Patient Response: positive Details: ???Acupuncture Patient instructions/Risk: Patient instructed not to move and informed of risks of moving. Risks associated with the procedure and the specific location were reviewed with the patient and consent was obtained. Acupuncture performed: E-stim was utilized-5setting. Acupoints Treated: GV20,BL10,GB20/21,LU7, YSABEL trap pts Sterile, single use, solid filament needles were inserted at various depths and angles to release tight tissue, improve microcirculation and remove neuro-noxious chemicals via a myofascial twitch response. Wetmore were inserted, needle manipulation was performed. Needle removal was performed and pressure was applied when necessary. Minutes:20 Needle Number: .25x15,.20x30 Patient response: pos Patient Positioning: prone Acupuncture Acupuncture with ES: Yes Assessment and Plan Assessment and Plan (1) Segmental and somatic dysfunction of cervical region: Status: Acute (2) Segmental and somatic dysfunction of thoracic region: Status: Acute (3) Segmental and somatic dysfunction of lumbar region: Status: Acute (4) Segmental and somatic dysfunction of pelvic region: Status: Acute (5) Cervicogenic headache: Status: Acute Orders: Orders Chiropractic Treatments Today G44.86 - Cervicogenic headache, M99.01 - Segmental and somatic dysfunction of cervical region, M99.02 - Segmental and somatic dysfunction of thoracic region, M99.03 - Segmental and somatic dysfunction of lumbar region, M99.05 - Segmental and somatic dysfunction of pelvi (more content not included)... Normal [facility] Chiropractic Reporton 2024 Chiropractic Report [facility] Chiropractic [facility] [place] [address] OFFICE VISIT Date of Service: 11/07/24 MR#: [id number] Acct: [id number] Name: DEB OSEI Rep #: [id number] : 1975 Provider: CARLOS Hansen Age/Sex: 48/F Location: [facility] [place] Status: Signed Intake Vital Signs 04/21/24 09:59 Height 5 ft 9 in Intake Visit Reasons: Back pain Chief Complaint: neck pain Allergies No Known Allergies Allergy (Verified 11/07/24 11:44) Medications ???Medication ???Instructions ???Recorded ???Confirmed ???Type ibuprofen 600 mg tablet 600 mg PO ONCE 01/26/17 11/07/24 H istory doxycycline hyclate 20 mg tablet tablet PO 06/02/22 11/07/24 Histor y PFSH Medical History Weight gain Multinodular goiter Chronic headaches Surgical History History of Hx of hernia repair History of appendectomy Family History Grandmother Colon cancer Diabetes Heart disease Sister Melanoma skin cancer Brother Thyroid disorder Grandfather Heart disease Other Depression Hypertension Myocardial infarction HPI Back pain Chief Complaint: Back pain Visit Number: 2 Details: Deb is a 48 y/o female here for follow up of neck and back pain.Pt. advises her last adjustment was helpful in relieving her pain. She states she recently felt an increase in stiffness in her neck and wanted to come in before it got too painful. She states it it tightness that extends into her bilateral traps. She c/o more frequent CAROLINA's. She continues c/o left shoulder pain at times when taking off her shirt. She had a steroid injection for right hand pain which was helpful. She receives regular massages which help decrease her pain. Her low back pain is intermittent. She denies new injury, numbness, tingling, or radiculopathy. She has been treating her pain with heat and stim at home. She states chiropractic adjustments and e-stim are helpful in relieving her pain and discomfort but it gradually returns. Location: neck and shoulder blades Duration: frequent Aggravating or associated factors: driving,computer work, sleeping Relieving factors: chiro Treatment: chiro, massage Pain Quality: aching, dull and radiating Exam Musc General: Yes normal posture, normal gait and joint tenderness; No decreased range of motion Cervical Spine: Yes loss of normal cervical lordosis, Yes cervical muscular tenderness bilateral lower , Yes cervical spasm right greater than left lower , Yes Trigger (R trap, scalene) and Yes misalignment misalignment: C5, C6 and C7 Thoracic/Lumber: Yes thoracic and lumbar spine normal to inspection, Yes Lasegue's sign negative, No pain with thoraco-lumbar ROM, Yes paraspinal tenderness on the left greater than right (upper/mid thoracic, lumbopelvic), No thoraco-lumbar ROM limited, Yes thoraco-lumbar spasm bilaterally (QL) in the lower lumbar and on the left greater than right (trap, levator) and Yes misalignment T3, T4, T5, T6, L3, L4, L5 and RIL Sacroiliac joints: on the right tender to palpation Office Procedures Procedures - Chiropractic Procedures Manipulation: Cervical C6, Lumbar L3, Thoracic T2 and T6 and Pelvis RIL Manipulation: 3-4 regions Electronic Stimulation: Yes Electrical Stimulation: Cervical 15 mins (11) mA Therapy Performed by:: Clare Hawkins Traction, Mechanical: Yes Patient Response: positive Assessment and Plan Assessment and Plan (1) Segmental and somatic dysfunction of cervical region: Status: Acute (2) Segmental and somatic dysfunction of thoracic region: Status: Acute (3) Segmental and somatic dysfunction of lumbar region: Status: Acute (4) Segmental and somatic dysfunction of pelvic region: Status: Acute Orders: Orders Chiropractic Treatments Today G44.86 - Cervicogenic headache, M99.01 - Segmental and somatic dysfunction of cervical region, M99.02 - Segmental and somatic dysfunction of thoracic region, M99.03 - Segmental and somatic dysfunction of lumbar region, M99.05 - Segmental and somatic dysfunction of pelvic region Plan Patient was treated without incident. She gets improvement with treatment. Recommend acupuncture for ongoing neck pain. Plan Details Goals Barriers: Goals Decrease pain and spasm Improve ROM Improve ability to perform ADLs with comfort Barriers Posture Follow Up: PRN Coding Level of Care Code No Charge Diagnoses Segmental and somatic dysfunction of cervical region M99.01 Segmental and somatic dysfunction of thoracic region M99.02 Segmental and somatic dysfunction of lumbar region M99.03 Segmental and somatic dysfunction of pelvic region M99.05 CPT Codes Procedures - (more content not included)... Normal [facility] Relevant diagnostic tests/la boratory data Narrativeon 10-11-2024 Fall risk assessment no [employer]Y [employer] Work Phone: MEDS REVIEW Done [employer] Work Phone: MEDS REVIEWD Medications reviewed with changes [employer] Work Phone: Chiropractic Reporton 2024 Chiropractic Report [facility] [address] [place] [address] [id number] OFFICE VISIT Date of Service: 10/10/24 MR#: [id number] Acct: [id number] Name: DEB OSEI Rep #: [id number] : 1975 Provider: CARLOS Hansen Age/Sex: 48/F Location: [facility] [place] Status: Signed Intake Vital Signs 04/21/24 09:59 Height 5 ft 9 in Intake Visit Reasons: Back pain Chief Complaint: neck pain Is patient in pain?: Yes (neck ) Pain scale (1-10): 3 Allergies No Known Allergies Allergy (Verified 10/10/24 14:42) Medications ???Medication ???Instructions ???Recorded ???Confirmed ???Type ibuprofen 600 mg tablet 600 mg PO ONCE 01/26/17 10/10/24 H istory doxycycline hyclate 20 mg tablet tablet PO 06/02/22 10/10/24 Histor y PFSH Medical History Weight gain Multinodular goiter Chronic headaches Surgical History History of Hx of hernia repair History of appendectomy Family History Grandmother Colon cancer Diabetes Heart disease Sister Melanoma skin cancer Brother Thyroid disorder Grandfather Heart disease Other Depression Hypertension Myocardial infarction HPI Back pain Chief Complaint: Back pain Visit Number: 1 Details: Deb is a 48 y/o female here for follow up of neck and back pain. She complains of neck pain and stiffness. She states it feels' crunchy' with ROM and has had more frequent CAROLINA's. She denies limited ROM and rates her pain 3/10. She also c/o left shoulder and right hand pain. She is scheduled to see a hand specialist tomorrow. She denies recent LBP. She receives massages which help decrease her pain. She denies new injury, numbness, tingling, or radiculopathy. She states driving her car aggravates her pain. She has been treating her pain with heat and stim at home. She states chiropractic adjustments and e-stim are helpful in relieving her pain and discomfort. Location: neck and shoulder blades Duration: frequent Aggravating or associated factors: driving,computer work, sleeping Relieving factors: chiro Treatment: heat, e stim Pain Quality: aching, dull and radiating Exam Musc General: Yes normal posture, normal gait and joint tenderness; No decreased range of motion Cervical Spine: Yes loss of normal cervical lordosis, Yes cervical muscular tenderness right greater than left diffuse , Yes cervical spasm left greater than right lower trapezius and paracervical muscles and Yes misalignment misalignment: C5, C6 and C7 Thoracic/Lumber: Yes thoracic and lumbar spine normal to inspection, Yes Lasegue's sign negative, No pain with thoraco-lumbar ROM, Yes paraspinal tenderness on the left greater than right (upper/mid thoracic, lumbopelvic), No thoraco-lumbar ROM limited, Yes thoraco-lumbar spasm bilaterally (QL) in the lower lumbar and on the left greater than right (trap, levator) and Yes misalignment T3, T4, T5, T6, L3, L4, L5 and RIL Sacroiliac joints: on the right tender to palpation Office Procedures Procedures - Chiropractic Procedures Manipulation: Cervical C6, Lumbar L3, Thoracic T2 and T6 and Pelvis RIL Manipulation: 3-4 regions Electronic Stimulation: Yes Electrical Stimulation: Cervical 15 mins (13) mA Therapy Performed by:: Clare Hawkins Traction, Mechanical: Yes Patient Response: positive Assessment and Plan Assessment and Plan (1) Segmental and somatic dysfunction of cervical region: Status: Acute (2) Segmental and somatic dysfunction of thoracic region: Status: Acute (3) Segmental and somatic dysfunction of lumbar region: Status: Acute (4) Segmental and somatic dysfunction of pelvic region: Status: Acute (5) Cervicogenic headache: Status: Acute Orders: Orders Chiropractic Treatments Today G44.86 - Cervicogenic headache, M99.01 - Segmental and somatic dysfunction of cervical region, M99.02 - Segmental and somatic dysfunction of thoracic region, M99.03 - Segmental and somatic dysfunction of lumbar region, M99.05 - Segmental and somatic dysfunction of pelvic region Plan Patient was treated without incident. Continue care as needed. Plan Details Goals Barriers: Goals Decrease pain and spasm Improve ROM Improve ability to perform ADLs with comfort Barriers Posture Follow Up: PRN Coding Level of Care Code No Charge Diagnoses Segmental and somatic dysfunction of cervical region M99.01 Segmental and somatic dysfunction of thoracic region M99.02 Segmental and somatic dysfunction of lumbar region M99.03 Segmental and somatic dysfunction of pelvic region M99.05 Cervicogenic headache G44.86 CPT Codes Procedures - Manipulation: 3-4 regions (77098) Procedures - Electronic Stim (more content not included)... Normal [facility] DBT Breast - left diagnostic for implanton 06-22-2024 IMPRESSION: Benign left breast cyst. No mammographic or sonographic evidence of malignancy. Return to annual screening mammogram is recommended. Annual mammogram will be due in 11 months. BI-RADS Category 2: Benign RISK: Based on the Tyrer-Cuzick (TC) risk assessment model, this patient has a 6.3% lifetime risk of developing breast cancer, meaning they are at average risk for developing breast cancer. However, this is only an estimate based on available history provided on the patient's questionnaire. We encourage all patients to talk with their providers about these results, further recommendations for managing breast health, and appropriate supplemental screening options if the patient has dense breast tissue. Interpreting Radiologist: Fadi Gonzalez M.D. Electronically signed on: 06/22/2024 Body Presser: AUSTEN Transcribe Date/Time: Jun 22 2024 10:04A Dictated by : FADI GONZALEZ MD This examination was interpreted and the report reviewed and electronically signed by: FADI GONZALEZ MD on Jun 22 2024 11:02AM [facility] * * *Final Report* * * DATE OF EXAM: Jun 22 2024 10:14AM [facility] 0628 - [facility] DIAG W AUBREY LT / PROCEDURE REASON: diagnostic * * * * Physician Interpretation * * * * [facility] [address] [place] [address] #[id number] - [facility] DIAG W AUB[facility]Y LT #[id number] - [facility] BRE[facility] L[facility] LT HISTORY: 48 year-old patient seen for diagnostic evaluation of the finding(s) described on prior mammogram in the left breast. COMPARISON STUDIES: The present examination has been compared to prior imaging studies dated 12/23/2018 (ultrasound), 03/08/2020 (mammogram), 05/02/2021 (mammogram), 05/23/2022 (mammogram) and 05/06/2024 (mammogram). MAMMOGRAM TECHNIQUE: The study was acquired using full field digital technology and interpreted from soft copy. Digital Breast Tomosynthesis (DBT) images were obtained and used to assist in the interpretation of this examination. MAMMOGRAM FINDINGS: The breast is heterogeneously dense, which may obscure small masses. The questioned focal asymmetry in the subareolar left breast does not persist. An ovoid circumscribed mass in the 3:00 left breast, subareolar depth doesn't persist. This is further assessed on ultrasound. No suspicious masses, calcifications or other abnormalities are seen in the left breast. ULTRASOUND TECHNIQUE: Targeted ultrasound of the indicated area was performed. Michaud scale images were saved. ULTRASOUND FINDINGS: In the 3:00 left breast, 1 cm from the nipple, an circumflex ovoid parallel anechoic avascular simple cyst measures 1.2 x 0.8 x 1.1 cm. This corresponds with the mammographic finding. She will images of the subareolar left breast demonstrate normal tissue without suspicious mass There are no suspicious findings in the imaged area. [facility] Provider, [facility] - 06/22/2024 * * *Final Report* * * DATE OF EXAM: Jun 22 2024 10:14AM [facility] 0628 - [facility] DIAG W AUBREY LT / PROCEDURE REASON: diagnostic * * * * Physician Interpretation * * * * [facility] [address] [address] [place] [id number] #[id number] - [facility] DIAG W AUBREY LT #[id number] - [facility] US BREAST LTD HISTORY: 48 year-old patient seen for diagnostic evaluation of the finding(s) described on prior mammogram in the left breast. COMPARISON STUDIES: The present examination has been compared to prior imaging studies dated 12/23/2018 (ultrasound), 03/08/2020 (mammogram), 05/02/2021 (mammogram), 05/23/2022 (mammogram) and 05/06/2024 (mammogram). MAMMOGRAM TECHNIQUE: The study was acquired using full field digital technology and interpreted from soft copy. Digital Breast Tomosynthesis (DBT) images were obtained and used to assist in the interpretation of this examination. MAMMOGRAM FINDINGS: The breast is heterogeneously dense, which may obscure small masses. The questioned focal asymmetry in the subareolar left breast does not persist. An ovoid circumscribed mass in the 3:00 left breast, subareolar depth doesn't persist. This is further assessed on ultrasound. No suspicious masses, calcifications or other abnormalities are seen in the left breast. ULTRASOUND TECHNIQUE: Targeted ultrasound of the indicated area was performed. Michaud scale images were saved. ULTRASOUND FINDINGS: In the 3:00 left breast, 1 cm from the nipple, an circumflex ovoid parallel anechoic avascular simple cyst measures 1.2 x 0.8 x 1.1 cm. This corresponds with the mammographic finding. She will images of the subareolar left breast demonstrate normal tissue without suspicious mass There are no suspicious findings in the imaged area. IMPRESSION IMPRESSION: Benign left breast cyst. No mammographic or sonographic evidence of malignancy. Return to annual screening mammogram is recommended. Annual mammogram will be due in 11 months. BI-RADS Category 2: Benign RISK: Based on the Tyrer-Cuzick (TC) risk assessment model, this patient has a 6.3% lifetime risk of developing breast cancer, meaning they are at average risk for developing breast cancer. However, this is only an estimate based on available history provided on the patient's questionnaire. We encourage all patients to talk with their providers about these results, further recommendations for managing breast health, and appropriate supplemental screening options if the patient has dense breast tissue. Interpreting Radiologist: Fadi Gonzalez M.D. Electronically signed on: 06/22/2024 Body Presser: AUSTEN Transcristeph Date/Time: Jun 22 2024 10:04A Dictated by : FADI GONZALEZ MD This examination was interpreted and the report reviewed and electronically signed by: FADI GONZALEZ MD on Jun 22 2024 11:02AM EST [facility]ER[facility] W AUBREY LTon 025 * * *Final Report* * * DATE OF EXAM: Jun 22 2024 10:14AM [facility] 0628 - [facility] DIAG W AUBREY LT / PROCEDURE REASON: diagnostic * * * * Physician Interpretation * * * * [facility] [address] [place] [address] #[id number] - [facility] DIAG W AUBREY LT #[id number] - [facility] BREAST LTD LT HISTORY: 48 year-old patient seen for diagnostic evaluation of the finding(s) described on prior mammogram in the left breast. COMPARISON STUDIES: The present examination has been compared to prior imaging studies dated 12/23/2018 (ultrasound), 03/08/2020 (mammogram), 05/02/2021 (mammogram), 05/23/2022 (mammogram) and 05/06/2024 (mammogram). MAMMOGRAM TECHNIQUE: The study was acquired using full field digital technology and interpreted from soft copy. Digital Breast Tomosynthesis (DBT) images were obtained and used to assist in the interpretation of this examination. MAMMOGRAM FINDINGS: The breast is heterogeneously dense, which may obscure small masses. The questioned focal asymmetry in the subareolar left breast does not persist. An ovoid circumscribed mass in the 3:00 left breast, subareolar depth doesn't persist. This is further assessed on ultrasound. No suspicious masses, calcifications or other abnormalities are seen in the left breast. ULTRASOUND TECHNIQUE: Targeted ultrasound of the indicated area was performed. Michaud scale images were saved. ULTRASOUND FINDINGS: In the 3:00 left breast, 1 cm from the nipple, an circumflex ovoid parallel anechoic avascular simple cyst measures 1.2 x 0.8 x 1.1 cm. This corresponds with the mammographic finding. She will images of the subareolar left breast demonstrate normal tissue without suspicious mass There are no suspicious findings in the imaged area. IMPRESSION: Benign left breast cyst. No mammographic or sonographic evidence of malignancy. Return to annual screening mammogram is recommended. Annual mammogram will be due in 11 months. BI-RADS Category 2: Benign RISK: Based on the Tyrer-Cuzick (TC) risk assessment model, this patient has a 6.3% lifetime risk of developing breast cancer, meaning they are at average risk for developing breast cancer. However, this is only an estimate based on available history provided on the patient's questionnaire. We encourage all patients to talk with their providers about these results, further recommendations for managing breast health, and appropriate supplemental screening options if the patient has dense breast tissue. Interpreting Radiologist: Fadi Gonzalez M.D. Electronically signed on: 06/22/2024 Body Presser: AUSTEN Transcribe Date/Time: Jun 22 2024 10:04A Dictated by : FADI GONZALEZ MD This examination was interpreted and the report reviewed and electronically signed by: FADI GONZALEZ MD on Jun 22 2024 11:02AM EST [id number]^[email or web address]^SI^ [facility], Radiologist, - 06/22/2024 * * *Final Report* * * DATE OF EXAM: Jun 22 2024 10:14AM [facility]28 - [facility] SAM[facility] W AUBREY LT / PROCEDURE REASON: diagnostic * * * * Physician Interpretation * * * * [facility] [address] [address] [place] [id number] #[id number] - [facility] W AUBREY LT #[id number] - [facility] US BREAST LTD LT HISTORY: 48 year-old patient seen for diagnostic evaluation of the finding(s) described on prior mammogram in the left breast. COMPARISON STUDIES: The present examination has been compared to prior imaging studies dated 12/23/2018 (ultrasound), 03/08/2020 (mammogram), 05/02/2021 (mammogram), 05/23/2022 (mammogram) and 05/06/2024 (mammogram). MAMMOGRAM TECHNIQUE: The study was acquired using full field digital technology and interpreted from soft copy. Digital Breast Tomosynthesis (DBT) images were obtained and used to assist in the interpretation of this examination. MAMMOGRAM FINDINGS: The breast is heterogeneously dense, which may obscure small masses. The questioned focal asymmetry in the subareolar left breast does not persist. An ovoid circumscribed mass in the 3:00 left breast, subareolar depth doesn't persist. This is further assessed on ultrasound. No suspicious masses, calcifications or other abnormalities are seen in the left breast. ULTRASOUND TECHNIQUE: Targeted ultrasound of the indicated area was performed. Michaud scale images were saved. ULTRASOUND FINDINGS: In the 3:00 left breast, 1 cm from the nipple, an circumflex ovoid parallel anechoic avascular simple cyst measures 1.2 x 0.8 x 1.1 cm. This corresponds with the mammographic finding. She will images of the subareolar left breast demonstrate normal tissue without suspicious mass There are no suspicious findings in the imaged area. IMPRESSION: Benign left breast cyst. No mammographic or sonographic evidence of malignancy. Return to annual screening mammogram is recommended. Annual mammogram will be due in 11 months. BI-RADS Category 2: Benign RISK: Based on the Tyrer-Cuzick (TC) risk assessment model, this patient has a 6.3% lifetime risk of developing breast cancer, meaning they are at average risk for developing breast cancer. However, this is only an estimate based on available history provided on the patient's questionnaire. We encourage all patients to talk with their providers about these results, further recommendations for managing breast health, and appropriate supplemental screening options if the patient has dense breast tissue. Interpreting Radiologist: Fadi Gonzalez M.D. Electronically signed on: 06/22/2024 Body Presser: AUSTEN Transcribe Date/Time: Jun 22 2024 10:04A Dictated by : FADI GONZALEZ MD This examination was interpreted and the report reviewed and electronically signed by: FADI GONZALEZ MD on Jun 22 2024 11:02AM EST [id number]^[email or web address]^SI^ ACN [facility] DIAG W AUBREY LT * * *Final Report* * * DATE OF EXAM: Jun 22 2024 10:14AM AAW 0628 - [facility] DIAG W AUBREY LT / PROCEDURE REASON: diagnostic * * * * Physician Interpretation * * * * [facility] [address] [place] [address] #[id number] - DAVID DIAG W AUBREY LT #[id number] - [facility] BREAST LTD LT HISTORY: 48 year-old patient seen for diagnostic evaluation of the finding(s) described on prior mammogram in the left breast. COMPARISON STUDIES: The present examination has been compared to prior imaging studies dated 12/23/2018 (ultrasound), 03/08/2020 (mammogram), 05/02/2021 (mammogram), 05/23/2022 (mammogram) and 05/06/2024 (mammogram). MAMMOGRAM TECHNIQUE: The study was acquired using full field digital technology and interpreted from soft copy. Digital Breast Tomosynthesis (DBT) images were obtained and used to assist in the interpretation of this examination. MAMMOGRAM FINDINGS: The breast is heterogeneously dense, which may obscure small masses. The questioned focal asymmetry in the subareolar left breast does not persist. An ovoid circumscribed mass in the 3:00 left breast, subareolar depth doesn't persist. This is further assessed on ultrasound. No suspicious masses, calcifications or other abnormalities are seen in the left breast. ULTRASOUND TECHNIQUE: Targeted ultrasound of the indicated area was performed. Michaud scale images were saved. ULTRASOUND FINDINGS: In the 3:00 left breast, 1 cm from the nipple, an circumflex ovoid parallel anechoic avascular simple cyst measures 1.2 x 0.8 x 1.1 cm. This corresponds with the mammographic finding. She will images of the subareolar left breast demonstrate normal tissue without suspicious mass There are no suspicious findings in the imaged area. IMPRESSION: Benign left breast cyst. No mammographic or sonographic evidence of malignancy. Return to annual screening mammogram is recommended. Annual mammogram will be due in 11 months. BI-RADS Category 2: Benign RISK: Based on the Tyrer-Cuzick (TC) risk assessment model, this patient has a 6.3% lifetime risk of developing breast cancer, meaning they are at average risk for developing breast cancer. However, this is only an estimate based on available history provided on the patient's questionnaire. We encourage all patients to talk with their providers about these results, further recommendations for managing breast health, and appropriate supplemental screening options if the patient has dense breast tissue. Interpreting Radiologist: Fadi Gonzalez M.D. Electronically signed on: 06/22/2024 Body Presser: AUSTEN Transcribe Date/Time: Jun 22 2024 10:04A Dictated by : FADI GONZALEZ MD This examination was interpreted and the report reviewed and electronically signed by: FADI GONZALEZ MD on Jun 22 2024 11:02AM EST [id number] Normal [facility] [employer] BREAST LTD LTon 06-22 * * *Final Report* * * DATE OF EXAM: Jun 22 2024 10:57AM [facility] 0593 - [facility] [employer] BREAST tu.nr LT / PROCEDURE REASON: diagnostic * * * * Physician Interpretation * * * * [facility] [place] [id number] #[id number] - [facility] SAMANTHA D[place]AS #[id number] - [facility] BREAST tu.nr LT HISTORY: 48 year-old patient seen for diagnostic evaluation of the finding(s) described on prior mammogram in the left breast. COMPARISON STUDIES: The present examination has been compared to prior imaging studies dated 12/23/2018 (ultrasound), 03/08/2020 (mammogram), 05/02/2021 (mammogram), 05/23/2022 (mammogram) and 05/06/2024 (mammogram). MAMMOGRAM TECHNIQUE: The study was acquired using full field digital technology and interpreted from soft copy. Digital Breast Tomosynthesis (DBT) images were obtained and used to assist in the interpretation of this examination. MAMMOGRAM FINDINGS: The breast is heterogeneously dense, which may obscure small masses. The questioned focal asymmetry in the subareolar left breast does not persist. An ovoid circumscribed mass in the 3:00 left breast, subareolar depth doesn't persist. This is further assessed on ultrasound. No suspicious masses, calcifications or other abnormalities are seen in the left breast. ULTRASOUND TECHNIQUE: Targeted ultrasound of the indicated area was performed. Michaud scale images were saved. ULTRASOUND FINDINGS: In the 3:00 left breast, 1 cm from the nipple, an circumflex ovoid parallel anechoic avascular simple cyst measures 1.2 x 0.8 x 1.1 cm. This corresponds with the mammographic finding. She will images of the subareolar left breast demonstrate normal tissue without suspicious mass There are no suspicious findings in the imaged area. IMPRESSION: Benign left breast cyst. No mammographic or sonographic evidence of malignancy. Return to annual screening mammogram is recommended. Annual mammogram will be due in 11 months. BI-RADS Category 2: Benign RISK: Based on the Tyrer-Cuzick (TC) risk assessment model, this patient has a 6.3% lifetime risk of developing breast cancer, meaning they are at average risk for developing breast cancer. However, this is only an estimate based on available history provided on the patient's questionnaire. We encourage all patients to talk with their providers about these results, further recommendations for managing breast health, and appropriate supplemental screening options if the patient has dense breast tissue. Interpreting Radiologist: Fadi Gonzalez M.D. Electronically signed on: 06/22/2024 Body Presser: AUSTEN Transcribe Date/Time: Jun 22 2024 10:47A Dictated by : FADI GONZALEZ MD This examination was interpreted and the report reviewed and electronically signed by: FADI GONZALEZ MD on Jun 22 2024 11:02AM EST [id number]^[email or web address]^SI^ ACN [facility], RadiologistMD - 06/22/2024 * * *Final Report* * * DATE OF EXAM: Jun 22 2024 10:57AM AAW 0593 - [facility] BREAST LTD LT / PROCEDURE REASON: diagnostic * * * * Physician Interpretation * * * * [facility] [address] [place] [address] #[id number] - [facility] SAMANTHA W UABREY LT #[id number] - [facility] BREAST LTD LT HISTORY: 48 year-old patient seen for diagnostic evaluation of the finding(s) described on prior mammogram in the left breast. COMPARISON STUDIES: The present examination has been compared to prior imaging studies dated 12/23/2018 (ultrasound), 03/08/2020 (mammogram), 05/02/2021 (mammogram), 05/23/2022 (mammogram) and 05/06/2024 (mammogram). MAMMOGRAM TECHNIQUE: The study was acquired using full field digital technology and interpreted from soft copy. Digital Breast Tomosynthesis (DBT) images were obtained and used to assist in the interpretation of this examination. MAMMOGRAM FINDINGS: The breast is heterogeneously dense, which may obscure small masses. The questioned focal asymmetry in the subareolar left breast does not persist. An ovoid circumscribed mass in the 3:00 left breast, subareolar depth doesn't persist. This is further assessed on ultrasound. No suspicious masses, calcifications or other abnormalities are seen in the left breast. ULTRASOUND TECHNIQUE: Targeted ultrasound of the indicated area was performed. Michaud scale images were saved. ULTRASOUND FINDINGS: In the 3:00 left breast, 1 cm from the nipple, an circumflex ovoid parallel anechoic avascular simple cyst measures 1.2 x 0.8 x 1.1 cm. This corresponds with the mammographic finding. She will images of the subareolar left breast demonstrate normal tissue without suspicious mass There are no suspicious findings in the imaged area. IMPRESSION: Benign left breast cyst. No mammographic or sonographic evidence of malignancy. Return to annual screening mammogram is recommended. Annual mammogram will be due in 11 months. BI-RADS Category 2: Benign RISK: Based on the Tyrer-Cuzick (TC) risk assessment model, this patient has a 6.3% lifetime risk of developing breast cancer, meaning they are at average risk for developing breast cancer. However, this is only an estimate based on available history provided on the patient's questionnaire. We encourage all patients to talk with their providers about these results, further recommendations for managing breast health, and appropriate supplemental screening options if the patient has dense breast tissue. Interpreting Radiologist: Fadi Gonzalez M.D. Electronically signed on: 06/22/2024 Body Presser: AUSTEN Transcribe Date/Time: Jun 22 2024 10:47A Dictated by : FADI GONZALEZ MD This examination was interpreted and the report reviewed and electronically signed by: FADI GONZALEZ MD on Jun 22 2024 11:02AM EST [id number]^[email or web address]^SI^ ACN [facility] [employer] BREAST LTD LT * * *Final Report* * * DATE OF EXAM: Jun 22 2024 10:57AM AAW 0593 - [employer] BREAST LTD LT / PROCEDURE REASON: diagnostic * * * * Physician Interpretation * * * * [facility] [address] [facility] [place] [address] #[id number] - [facility] DIAG W AUBREY LT #[id number] - [facility] BREAST tu.nr LT HISTORY: 48 year-old patient seen for diagnostic evaluation of the finding(s) described on prior mammogram in the left breast. COMPARISON STUDIES: The present examination has been compared to prior imaging studies dated 12/23/2018 (ultrasound), 03/08/2020 (mammogram), 05/02/2021 (mammogram), 05/23/2022 (mammogram) and 05/06/2024 (mammogram). MAMMOGRAM TECHNIQUE: The study was acquired using full field digital technology and interpreted from soft copy. Digital Breast Tomosynthesis (DBT) images were obtained and used to assist in the interpretation of this examination. MAMMOGRAM FINDINGS: The breast is heterogeneously dense, which may obscure small masses. The questioned focal asymmetry in the subareolar left breast does not persist. An ovoid circumscribed mass in the 3:00 left breast, subareolar depth doesn't persist. This is further assessed on ultrasound. No suspicious masses, calcifications or other abnormalities are seen in the left breast. ULTRASOUND TECHNIQUE: Targeted ultrasound of the indicated area was performed. Michaud scale images were saved. ULTRASOUND FINDINGS: In the 3:00 left breast, 1 cm from the nipple, an circumflex ovoid parallel anechoic avascular simple cyst measures 1.2 x 0.8 x 1.1 cm. This corresponds with the mammographic finding. She will images of the subareolar left breast demonstrate normal tissue without suspicious mass There are no suspicious findings in the imaged area. IMPRESSION: Benign left breast cyst. No mammographic or sonographic evidence of malignancy. Return to annual screening mammogram is recommended. Annual mammogram will be due in 11 months. BI-RADS Category 2: Benign RISK: Based on the Tyrer-Cuzick (TC) risk assessment model, this patient has a 6.3% lifetime risk of developing breast cancer, meaning they are at average risk for developing breast cancer. However, this is only an estimate based on available history provided on the patient's questionnaire. We encourage all patients to talk with their providers about these results, further recommendations for managing breast health, and appropriate supplemental screening options if the patient has dense breast tissue. Interpreting Radiologist: Fadi Gonzalez M.D. Electronically signed on: 06/22/2024 Body Presser: AUSTEN Transcribe Date/Time: Jun 22 2024 10:47A Dictated by : FADI GONZALEZ MD This examination was interpreted and the report reviewed and electronically signed by: FADI GONZALEZ MD on Jun 22 2024 11:02AM EST [id number] Normal [facility] No Panel InformationOrdered By: Radiologist Radiology on 06-22-2024 [facility] Work Phone: No Panel Informationon 06-22 Radiology Study observation (narrative) [facility] [address] [facility] Radiology Study observation (narrative) [facility] [address] [facility] US Breast - left limitedon 0 06-22-2024 IMPRESSION: Benign left breast cyst. No mammographic or sonographic evidence of malignancy. Return to annual screening mammogram is recommended. Annual mammogram will be due in 11 months. BI-RADS Category 2: Benign RISK: Based on the Tyrer-Cuzick (TC) risk assessment model, this patient has a 6.3% lifetime risk of developing breast cancer, meaning they are at average risk for developing breast cancer. However, this is only an estimate based on available history provided on the patient's questionnaire. We encourage all patients to talk with their providers about these results, further recommendations for managing breast health, and appropriate supplemental screening options if the patient has dense breast tissue. Interpreting Radiologist: Fadi Gonzalez M.D. Electronically signed on: 06/22/2024 Body Presser: AUSTEN Transcribe Date/Time: Jun 22 2024 10:47A Dictated by : FADI GONZALEZ MD This examination was interpreted and the report reviewed and electronically signed by: FADI GONZALEZ MD on Jun 22 2024 11:02AM [facility] * * *Final Report* * * DATE OF EXAM: Jun 22 2024 10:57AM [facility] 0593 - [facility] BREAST LTD LT / PROCEDURE REASON: diagnostic * * * * Physician Interpretation * * * * [facility] [address] [facility] [place] [id number] #[id number] - [facility] DIAG W AUBREY LT #[id number] - [facility] BREAST LTD LT HISTORY: 48 year-old patient seen for diagnostic evaluation of the finding(s) described on prior mammogram in the left breast. COMPARISON STUDIES: The present examination has been compared to prior imaging studies dated 12/23/2018 (ultrasound), 03/08/2020 (mammogram), 05/02/2021 (mammogram), 05/23/2022 (mammogram) and 05/06/2024 (mammogram). MAMMOGRAM TECHNIQUE: The study was acquired using full field digital technology and interpreted from soft copy. Digital Breast Tomosynthesis (DBT) images were obtained and used to assist in the interpretation of this examination. MAMMOGRAM FINDINGS: The breast is heterogeneously dense, which may obscure small masses. The questioned focal asymmetry in the subareolar left breast does not persist. An ovoid circumscribed mass in the 3:00 left breast, subareolar depth doesn't persist. This is further assessed on ultrasound. No suspicious masses, calcifications or other abnormalities are seen in the left breast. ULTRASOUND TECHNIQUE: Targeted ultrasound of the indicated area was performed. Michaud scale images were saved. ULTRASOUND FINDINGS: In the 3:00 left breast, 1 cm from the nipple, an circumflex ovoid parallel anechoic avascular simple cyst measures 1.2 x 0.8 x 1.1 cm. This corresponds with the mammographic finding. She will images of the subareolar left breast demonstrate normal tissue without suspicious mass There are no suspicious findings in the imaged area. [facility] Provider, [facility] - 06/22/2024 * * *Final Report* * * DATE OF EXAM: Jun 22 2024 10:57AM AAW 0593 - [facility] BREAST LTD LT / PROCEDURE REASON: diagnostic * * * * Physician Interpretation * * * * [facility] [address] [place] [address] #[id number] - [facility] DIAMacho W AUBREY LT #[id number] - [facility] BREAST tu.nr LT HISTORY: 48 year-old patient seen for diagnostic evaluation of the finding(s) described on prior mammogram in the left breast. COMPARISON STUDIES: The present examination has been compared to prior imaging studies dated 12/23/2018 (ultrasound), 03/08/2020 (mammogram), 05/02/2021 (mammogram), 05/23/2022 (mammogram) and 05/06/2024 (mammogram). MAMMOGRAM TECHNIQUE: The study was acquired using full field digital technology and interpreted from soft copy. Digital Breast Tomosynthesis (DBT) images were obtained and used to assist in the interpretation of this examination. MAMMOGRAM FINDINGS: The breast is heterogeneously dense, which may obscure small masses. The questioned focal asymmetry in the subareolar left breast does not persist. An ovoid circumscribed mass in the 3:00 left breast, subareolar depth doesn't persist. This is further assessed on ultrasound. No suspicious masses, calcifications or other abnormalities are seen in the left breast. ULTRASOUND TECHNIQUE: Targeted ultrasound of the indicated area was performed. Michaud scale images were saved. ULTRASOUND FINDINGS: In the 3:00 left breast, 1 cm from the nipple, an circumflex ovoid parallel anechoic avascular simple cyst measures 1.2 x 0.8 x 1.1 cm. This corresponds with the mammographic finding. She will images of the subareolar left breast demonstrate normal tissue without suspicious mass There are no suspicious findings in the imaged area. IMPRESSION IMPRESSION: Benign left breast cyst. No mammographic or sonographic evidence of malignancy. Return to annual screening mammogram is recommended. Annual mammogram will be due in 11 months. BI-RADS Category 2: Benign RISK: Based on the Tyrer-Cuzick (TC) risk assessment model, this patient has a 6.3% lifetime risk of developing breast cancer, meaning they are at average risk for developing breast cancer. However, this is only an estimate based on available history provided on the patient's questionnaire. We encourage all patients to talk with their providers about these results, further recommendations for managing breast health, and appropriate supplemental screening options if the patient has dense breast tissue. Interpreting Radiologist: Fadi Gonzalez M.D. Electronically signed on: 06/22/2024 Body Presser: AUSTEN Transcribe Date/Time: Jun 22 2024 10:47A Dictated by : FADI GONZALEZ MD This examination was interpreted and the report reviewed and electronically signed by: FADI GONZALEZ MD on Jun 22 2024 11:02AM EST [facility] Chiropractic Reporton 2024 Chiropractic Report [facility] Chiropractic [facility] [place] [address] OFFICE VISIT Date of Service: 05/16/24 MR#: [id number] Acct: [id number] Name: DEB OSEI Rep #: [id number] : 1975 Provider: CARLOS Hansen Age/Sex: 48/F Location: [facility] Status: Signed Intake Vital Signs 05/19/23 08:35 04/21/24 09:59 Height 5 ft 9 in 5 ft 9 in Weight: 170 lb BMI 25.1 BP 128/78 H Intake Visit Reasons: Back pain Chief Complaint: Back pain Allergies No Known Allergies Allergy (Verified 05/16/24 14:44) Medications ???Medication ???Instructions ???Recorded ???Confirmed ???Type ibuprofen 600 mg tablet 600 mg PO ONCE 01/26/17 05/16/24 H istory doxycycline hyclate 20 mg tablet tablet PO 06/02/22 05/16/24 Histor y PFSH Medical History (Updated 05/17/24 @ 13:[address] Loreto Story, [place]) Weight gain Multinodular goiter Chronic headaches Surgical History History of Hx of hernia repair History of appendectomy Family History Grandmother Colon cancer Diabetes Heart disease Sister Melanoma skin cancer Brother Thyroid disorder Grandfather Heart disease Other Depression Hypertension Myocardial infarction HPI Back pain Chief Complaint: Back pain Visit Number: 1 Details: Deb is a 48 y/o female here for follow up of neck and back pain. She complains of increased neck pain and stiffness that is worse on the left. The pain starts in her traps and across her shoulder blades and radiates up into her neck. She states this has been going on for a few weeks and is not getting any better. She does experience headaches frequently. LBP was been intermittent. She receives massages which help decrease her pain. She denies new injury, numbness, tingling, or radiculopathy. She states driving her car aggravates her pain. She has been treating her pain with heat and stim at home. She states chiropractic adjustments and e-stim are helpful in relieving her pain and discomfort. Location: neck and shoulder blades Duration: frequent Aggravating or associated factors: driving,computer work, sleeping Relieving factors: chiro Treatment: heat, e stim Pain Quality: aching, dull and radiating Exam Musc General: Yes normal posture, normal gait and joint tenderness; No decreased range of motion Cervical Spine: Yes loss of normal cervical lordosis, Yes cervical muscular tenderness left greater than right diffuse , Yes cervical spasm left greater than right lower trapezius and paracervical muscles and Yes misalignment misalignment: C5, C6 and C7 Thoracic/Lumber: Yes thoracic and lumbar spine normal to inspection, Yes Lasegue's sign negative, No pain with thoraco-lumbar ROM, Yes paraspinal tenderness on the left greater than right (upper/mid thoracic, lumbopelvic), No thoraco-lumbar ROM limited, Yes thoraco-lumbar spasm bilaterally (QL) in the lower lumbar and on the left greater than right (trap, levator) and Yes misalignment T3, T4, T5, T6, L3, L4 and L5 Office Procedures Procedures - Chiropractic Procedures Manipulation: Cervical C5, Lumbar L3 and L5 and Thoracic T2 and T6 Manipulation: 3-4 regions Electronic Stimulation: Yes Electrical Stimulation: Cervical 15 mins (13) mA Therapy Performed by:: Franny Matthews, Mechanical: Yes Hot and/or cold packs: Yes Patient Response: positive Assessment and Plan Assessment and Plan (1) Back pain: Qualifiers: Back pain location: thoracic back pain Chronicity: acute Back pain laterality: bilateral Qualified Code(s): M54.6 - Pain in thoracic spine (2) Segmental and somatic dysfunction of cervical region: Status: Acute (3) Segmental and somatic dysfunction of thoracic region: Status: Acute (4) Segmental and somatic dysfunction of lumbar region: Status: Acute (5) Cervicogenic headache: Status: Acute Orders: Orders Chiropractic Treatments 05/16/24 M99.01 - Segmental and somatic dysfunction of cervical region, M99.02 - Segmental and somatic dysfunction of thoracic region, M99.03 - Segmental and somatic dysfunction of lumbar region, M99.05 - Segmental and somatic dysfunction of pelvic region Plan Patient was treated without incident. Continue care as needed. Plan Details Goals Barriers: Goals Decrease pain and spasm Improve ROM Improve ability to perform ADLs with comfort Barriers Posture Follow Up: PRN Coding Level of Care Code No Charge Diagnoses Acute bilateral thoracic back pain M54.6 Back pain location: thoracic back pain Chronicity: acute Back pain laterality: bilateral Segmental and somatic dysfunction of cervical region M99.01 Segmental and somatic dysfunction of thoracic region M99.02 Segm (more content not included)... Normal [facility] * * *Final Report* * * DATE OF EXAM: May 06 2024 1:40PM AW 0582 - [facility] W [facility]UB[facility] / PROCEDURE REASON: screening * * * * Physician Interpretation * * * * [facility] [place] [facility] [address] [place] [address] [place] [address] [id number] #[id number] - [facility] SCREENING W AUB[facility] HISTORY: 48 year-old patient seen for screening. Patient is asymptomatic in both breasts. Patient states no personal history of breast cancer. COMPARISON STUDIES: The present examination has been compared to prior imaging studies dated 12/09/2018 (mammogram), 03/08/2020 (mammogram), 05/02/2021 (mammogram) and 05/23/2022 (mammogram). MAMMOGRAM TECHNIQUE: The study was acquired using full field digital technology and interpreted from soft copy. Digital Breast Tomosynthesis (DBT) images were obtained and used to assist in the interpretation of this examination. MAMMOGRAM FINDINGS: The breasts are heterogeneously dense, which may obscure small masses. Finding 1: There is an asymmetry in the subareolar region of the left breast. Finding 2: There is an oval mass in the upper outer quadrant of the left breast, subareolar region. No suspicious masses, calcifications or other abnormalities are seen in the right breast. IMPRESSION: Finding 1: The asymmetry in the subareolar region of the left breast requires additional evaluation. Diagnostic mammogram is recommended. Finding 2: The oval mass in the upper outer quadrant of the left breast, subareolar region requires additional evaluation. Diagnostic ultrasound is recommended. BI-RADS Category 0: Incomplete: Needs Additional Imaging Evaluation RISK: Based on the Tyrer-Cuzick (TC) risk assessment model, this patient has a 6.3% lifetime risk of developing breast cancer, meaning they are at average risk for developing breast cancer. However, this is only an estimate based on available history provided on the patient's questionnaire. We encourage all patients to talk with their providers about these results, further recommendations for managing breast health, and appropriate supplemental screening options if the patient has dense breast tissue. Interpreting Radiologist: Mehreen Phipps M.D. Electronically signed on: 05/09/2024 Body Presser: AUSTEN Transcribe Date/Time: May 06 2024 1:26P Dictated by : MEHREEN PHIPPS MD This examination was interpreted and the report reviewed and electronically signed by: MEHREEN PHIPPS MD on May 09 2024 7:30AM EST [id number] Normal [facility] Chiropractic Reporton 2023 Chiropractic Report [facility]ropract[facility] [address] [place] [address] OFFICE VISIT Date of Service: 02/01/24 MR#: [id number] Acct: [id number] Name: DEB OSEI Rep #: [id number] : 1975 Provider: CARLOS Hansen Age/Sex: 48/F Location: [facility] Status: Signed Intake Vital Signs 05/19/23 08:35 Height 5 ft 9 in Weight: 170 lb BMI 25.1 BP 128/78 H Intake Visit Reasons: Back pain Chief Complaint: neck shoulder blade pain Allergies No Known Allergies Allergy (Verified 02/01/24 13:41) Medications ???Medication ???Instructions ???Recorded ???Confirmed ???Type ibuprofen 600 mg tablet 600 mg PO ONCE 01/26/17 02/01/24 History doxycycline hyclate 20 mg tablet tablet PO 06/02/22 02/01/24 History PFSH Medical History Weight gain Multinodular goiter Chronic headaches Surgical History History of Hx of hernia repair History of appendectomy Family History Grandmother Colon cancer Diabetes Heart disease Sister Melanoma skin cancer Brother Thyroid disorder Grandfather Heart disease Other Depression Hypertension Myocardial infarction HPI Back pain Chief Complaint: Back pain Visit Number: 3 Details: Deb is a 48 y/o female here for follow up of neck and back pain. She complains of neck pain and stiffness that extends into her traps and upper back bilaterally. The left side of her neck is worse. She states the pain is worse when she moves or lifts her arm and when she drives for extended periods. She also receives massages which help decrease her pain. She denies new injury, numbness, tingling, or radiculopathy. She states driving her car aggravates her pain. She has been treating her pain with heat and stim at home. She reports relief for about a month with each adjustment. She states chiropractic adjustments are helpful in relieving her pain and discomfort. Location: neck and shoulder blades Duration: frequent Aggravating or associated factors: driving,computer work, sleeping Relieving factors: chiro Treatment: heat, e stim Pain Quality: aching, dull and radiating Exam Musc General: Yes normal posture, normal gait and joint tenderness; No decreased range of motion Cervical Spine: Yes loss of normal cervical lordosis, Yes cervical muscular tenderness left greater than right diffuse , Yes cervical spasm left greater than right lower trapezius and paracervical muscles and Yes misalignment misalignment: C5, C6 and C7 Thoracic/Lumber: Yes thoracic and lumbar spine normal to inspection, Yes Lasegue's sign negative, No pain with thoraco-lumbar ROM, Yes paraspinal tenderness bilaterally in the lower lumbar and on the left greater than right (upper/mid thoracic), No thoraco-lumbar ROM limited, Yes thoraco-lumbar spasm bilaterally (QL) in the lower lumbar and on the left greater than right (trap, levator: trigger points) and Yes misalignment T3, T4, T5, T6, L3, L4, L5 and LIL Sacroiliac joints: on the left tender to palpation Office Procedures Procedures - Chiropractic Procedures Manipulation: Cervical C5, Lumbar L3 and L5 and Thoracic T2 and T6 Manipulation: 3-4 regions Electronic Stimulation: Yes Electrical Stimulation: Cervical 15 mins (25) mA Therapy Performed by:: Franny Matthews, Mechanical: Yes Hot and/or cold packs: Yes Patient Response: positive Assessment and Plan Assessment and Plan (1) Segmental and somatic dysfunction of cervical region: Status: Acute (2) Segmental and somatic dysfunction of thoracic region: Status: Acute (3) Segmental and somatic dysfunction of lumbar region: Status: Acute (4) Segmental and somatic dysfunction of pelvic region: Status: Acute Orders: Orders Chiropractic Treatments Today M99.01 - Segmental and somatic dysfunction of cervical region, M99.02 - Segmental and somatic dysfunction of thoracic region, M99.03 - Segmental and somatic dysfunction of lumbar region, M99.05 - Segmental and somatic dysfunction of pelvic region Plan Patient was treated without incident. Continue care as needed. Plan Details Goals Barriers: Goals Decrease pain and spasm Improve ROM Improve ability to perform ADLs with comfort Barriers Posture Follow Up: PRN Coding Level of Care Code No Charge Diagnoses Segmental and somatic dysfunction of cervical region M99.01 Segmental and somatic dysfunction of thoracic region M99.02 Segmental and somatic dysfunction of lumbar region M99.03 Segmental and somatic dysfunction of pelvic region M99.05 CPT Codes Procedures - Manipulation: 3-4 regions (87304) Procedures - Electronic Stimulation: Yes (46374) Procedures - Ho (more content not included)... Normal [facility] [place] 06-16-2023 CNOV Office Visit (GENSME ) SEADEB ([id number]) 1975 F Date Time Provider Department 06/16/23 2:45 PM BISHOP CARPIO During your visit today, we recorded the following information about you: Bishop Carpio MD 06/16/2023 2:52 PM Signed Subjective:The patient is a 47 year old female with a complaint of with an ultrasound from [facility] which showed multinodular goiter which was stable and did not need any fine-needle aspirations but a 1.8 cm x 0.8 cm mass presumed to be a possible parathyroid inferior on the left side Obtained a calcium level which was 9.7 and a PTH which was 45 both of these are within normal range. Obtained a sestamibi scan which showed increased activity in the left inferior thyroid area. Objective:Last menstrual period 11/10/2013. Neck is supple no hard palpable nodules are identified. No lymphadenopathy is identified. Assessment:Parathyroid abnormality (hcc) (primary encounter diagnosis) Plan: At this point and get a referral to Dr. Jean alegria at the main campus for second opinion on what we should do here. 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] Order(s):CONSULT TO ENDOCRINE SURGERY [4451416] Order #: [id number]: 1 FUTURE Problem List As Of Date 06/16/2023 Noted Resolved APPENDICITIS ACUTE [K35.80] 06/08/2006 Recurrent ventral incisional hernia [K43.2] 06/09/2014 Letter Text Encounter Status:Closed by BISHOP CARPIO on 06/16/23 Normal [facility] PARATHYROID W SPECT/CTon 06-11-2023 NM PARATHYROID W SPECT/CT * * *Final Report* * * DATE OF EXAM: Jun 11 2023 11:12AM N 0089 - [place] PARATHYROID W SPECT/CT / PROCEDURE REASON: Parathyroid abnormality (HCC) * * * * Physician Interpretation * * * * EXAM: PARATHYROID SCAN WITH SPECT-CT HISTORY: Parathyroid abnormality. Additional history per Dr. Bishop Carpio's 06/02/2023 office note. TECHNIQUE: 333 microcuries of I-123 sodium iodide administered PO, followed by thyroid scan. 36 mCi Tc-99m sestamibi was given administered IV. SPECT imaging of the skull base through lower thorax was performed. Low dose, non-contrast CT of the same body region was obtained for attenuation correction and anatomic localization - this CT is not designed to produce or replace diagnostic CT scan quality. Fused images were created and sent to the imaging archive. CT Dose-Length Product (DLP): 266 mGy*cm CT Dose Reduction Employed: Yes CORRELATION: None available RESULTS: I-123 images: Homogeneous thyroid uptake. Bilateral low-attenuation nodules with intrinsic iodine uptake. For reference: * 1.5 cm left lobe (3:54) * 1.6 cm right lobe (3:58) Sestamibi images: * Mildly intense focus of post-subtraction sestamibi activity corresponding with a 0.8 cm cm soft tissue nodule along posterior-inferior aspect of the left thyroid near the tracheoesophageal groove (fused axial subtraction image 46). This area has no intrinsic iodine uptake. * No other areas of abnormal post-subtraction sestamibi activity to suggest additional sites of abnormal parathyroid tissue. Limited CT Findings: No acute abnormality. Biapical pleural-parenchymal scarring, mild. Care Center Manager (topogram) images: No additional findings. IMPRESSION: Suspected hypervascular parathyroid lesion in the left neck. Note, other etiologies can have increased mitochondrial content. Bilateral thyroid nodules with intrinsic iodine uptake. Correlate sonographically. Body Presser: MYKE Transcribe Date/Time: Jun 11 2023 12:54P Dictated by : JAVI BARRIENTOS DO This examination was interpreted and the report reviewed and electronically signed by: JAVI BARRIENTOS DO on Jun 11 2023 1:18PM EST [id number] Normal [facility] Calcium SerPl-mCncon 0418-2 024 Calcium [Mass/Vol] 9.7 mg/dL Normal 8.5-10.2 [facility] Comment on above: Order Comment: Gavin chamorro Type: BLOOD SPECIMEN Ordering Facility: [facility] Address: [address] [place] [address] Performed By: #### 1 7861-6 #### [facility] CLIA [id number] [address] [place] [address] [place] PTH-Intact SerPl-mCncon - Parathyrin.intact [Mass/Vol] 45 pg/mL Normal 15-65 [facility] Comment on above: Order Comment: Gavin chamorro Type: BLOOD SPECIMEN Ordering Facility: [facility] Address: [address] [place] [address] Performed By: #### 2 731-8 #### [facility] CLIA [id number] [address] [place] [address] [place] CNOVon 06-02-2023 CNOV Office Visit (GENSME ) DEB OSEI ([id number]) 1975 F Date Time Provider Department 06/02/23 2:30 PM BISHOP CARPIO During your visit today, we recorded the following information about you: Pulse Blood pressure Weight Height 63/minute 145/79 74.4 kg 1.753 m Bishop Carpio MD 06/03/2023 6:16 AM Signed HISTORY AND PHYSICAL Deb Osei 1975 REFERRING PHYSICIAN: Effie Bran CNP CHIEF COMPLAINT: Consult (Parathyroid nodule) HPI: The patient is a 47 year old female with a complaint of with an ultrasound from [facility] which showed multinodular goiter which was stable and did not need any fine-needle aspirations but a 1.8 cm x 0.8 cm mass presumed to be a possible parathyroid inferior on the left side. I do not have any labs to confirm whether or not she has elevated calcium or elevated PTH. And no other imaging such as a sestamibi scan has been completed. Back in 2019 I performed fine-needle aspirations of both the left and right side. Came back as a colloid nodule. The patient has had no increased in kidney stones she has had no depression no psychological overtones The patient is being seen by me today at the request of Dr. Effie Bran, FOREIGN SERVICE OFFICER for my opinion and advice regarding Parathyroid abnormality (hcc) (primary encounter diagnosis). PAST MEDICAL HISTORY Diagnosis Date Hemorrhoid PAST SURGICAL HISTORY Procedure Laterality Date DELIVERY ONLY , low transverse DELIVERY ONLY , low transverse DELIVERY ONLY , low transverse LAPAROSCOPIC APPENDECTOMY 05/26/2006 LIG/TRNSXJ FLP TUBE ABDL/VAG APPR UNI/BI Tubal ligation MOHS forehead x2 REPAIR FIRST ABDOMINAL WALL HERNIA 02/16/2009 Hernia repair, incisional No current outpatient medications on file. No current facility-administered medications for this visit. ALLERGIES: Patient has no known allergies. PERSONAL HISTORY: Social History Tobacco Use Smoking status: Never Smokeless tobacco: Never Vaping Use Vaping Use: Never used Substance Use Topics Alcohol use: No Drug use: No FAMILY HISTORY: FAMILY HISTORY Problem Relation Age of Onset Allergies Brother Colon Cancer Maternal Grandmother Diabetes Maternal Grandmother Coronary Artery Disease Maternal Grandmother Coronary Artery Disease Maternal Grandfather REVIEW OF SYMPTOMS: negative except as noted above PHYSICAL EXAMINATION: General: The patient is 47 year old female, well nourished, well hydrated in no acute distress. The patient is oriented to time, place, and person. VITALS: Blood pressure 145/79, pulse 63, height 175.3 cm (5' 9), weight 74.4 kg (164 lb), last menstrual period 11/10/2013. HEENT: Normal cephalic, ataumatic, pupils are equally round, sclera are anicteric, mucous membranes are moist, oropharynx is clear. Neck has no masses, asymmetry or lymphadenopathy. Thyroid is unremarkable. Respiratory: Clear to auscultation and percussion. Normal respiratory excursion and pattern. Cardiac: Examination is regular rate and rhythm. Abdominal exam: Soft, nontender, with no palpable masses. No hepatosplenomegaly. No palpable hernias. Rectal exam: exam deferred Extremities: no clubbing, cyanosis or edema. No adenopathy. Other: LABORATORY VALUES: As Noted RADIOLOGIC STUDIES: As Noted Assessment IMPRESSION: Parathyroid abnormality (hcc) (primary encounter diagnosis) PLAN: Will obtain a calcium level as well as a PTH. In addition I am going to obtain a sestamibi scan I will see her back once these are completed. Diagnoses: (E21.5) Parathyroid abnormality (HCC) (primary encounter diagnosis) A letter was sent to Dr. Effie Bran CNP indicating the above finding for this patient. Return to Clinic: The patient is instructed to follow-up with me after the testing has been completed. 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] Order(s):CALCIUM, TOTAL [SQCA] Order #: [id number] FUTURE PTH INTACT [SQPTHI] Order #: [id number] FUTURE NM INJ PARATHYROID ADENOMA NONIMAGING [[id number]] Order #: [id number] FUTURE Problem List As Of Date 06/02/2023 Noted Resolved APPENDICITIS ACUTE [K35.80] 06/08/2006 Recurrent ventral incisional hernia [K43.2] 06/09/2014 Letter Text Encounter Status:Closed by BISHOP CARPIO on 06/03/23 [facility] Tele[facility] (Mobakids) DEB OSEI ([id number]) 1975 F Date Time Provider Department 05/18/23 NURSE GENS [facility] GENSWS During your visit today, we recorded the following information about you: Tamar Spear RN 05/18/2023 11:28 AM Signed Received request from Effie Bran at [facility], requesting the last thyroid biopsy and pathology that was performed by Dr. Carpio. Faxed the 2019 FNA and pathology. Tamar Spear RN Allergies As of Date: 05/18/2023 (No Known Allergies) Date Reviewed: 06/09/2014 Reviewed by: Paris Freeman LPN - Fully Assessed Reason for Visit: Request for Medical Records [Other] Problem List As Of Date 05/18/2023 Noted Resolved APPENDICITIS ACUTE [K35.80] 06/08/2006 Recurrent ventral incisional hernia [K43.2] 06/09/2014 Encounter Status:Closed by TAMAR SPEAR on 05/18/23 Normal [facility] CALCIFEDIOL ([id number])Ordered B y: Teacher Counselor on 10-05-2020 25-hydroxyvitamin D [Mass/Vol] 46.7 ng/mL Normal 30.0-100.0 [facility]; [facility] Work Phone: Comment on above: Vitamin D deficiency has been defined by the [place] ofMedicine and an Endocrine Society practice guideline as alevel of serum 25-OH vitamin D less than 20 ng/mL (1,2).The Endocrine Society went on to further define vitamin Dinsufficiency as a level between 21 and 29 ng/mL (2).1. IOM ([place] of Medicine). 2010. Dietary reference intakes for calcium and D. [place]: The National Academies Press.2. Bladimir MF, Rasheed [place], Cyndie-Haresh [place], et al. Evaluation, treatment, and prevention of vitamin D deficiency: an Endocrine Society clinical practice guideline. JCEM. 2010; 96(7):1911-30. PATIENT WAS FASTINGP ERFORMED BY: [facility] [id number] [facility] [id number] CBC & PLATELETS (AUTO) (8502 [id number])Ordered By: Teacher Counselor on 10-05-2020 Erythrocyte distribution width (RBC) [Ratio] 12.0 % Normal 11.7-15.4 [facility]; [facility] Work Phone: Comment on above: PATIENT WAS FASTINGP ERFORMED BY: DELFINO JamelEliana [id number] [facility] [id number] Hematocrit (Bld) [Volume fraction] 37.8 % Normal 34.0-46.6 [facility]; [facility] Work Phone: Comment on above: PATIENT WAS FASTINGP ERFORMED BY: DELFINO LabCallie [id number] [facility] [id number] Hemoglobin (Bld) [Mass/Vol] 13.0 g/dL Normal 11.1-15.9 [facility]; [facility] Work Phone: Comment on above: PATIENT WAS FASTINGP ERFORMED BY: DELFINO Pagan [id number] [facility] [id number] MCH (RBC) [Entitic mass] 31.1 pg Normal 26.6-33.0 [facility]; [facility] Work Phone: Comment on above: PATIENT WAS FASTINGP ERFORMED BY: DELFINO [id number] [facility] [id number] MCHC (RBC) [Mass/Vol] 34.4 g/dL Normal 31.5-35.7 [facility] prehensive Internal Medicine; [facility] Work Phone: Comment on above: PATIENT WAS FASTINGP ERFORMED BY: DELFINO [facility] [id number] [facility] [id number] MCV (RBC) [Entitic vol] 90 fL Normal 79-97 [facility]; [facility] Work Phone: Comment on above: PATIENT WAS FASTINGP ERFORMED BY: DELFINO LabCallie [id number] [facility] [place] [id number] Platelets (Bld) [#/Vol] 237 10*3/uL Normal 150-450 [facility]; [facility] Work Phone: Comment on above: PATIENT WAS FASTINGP ERFORMED BY: CB [facility] [id number] [address] RoadDublin [place] [id number] RBC (Bld) [#/Vol] 4.18 10*6/uL Normal 3.77-5.28 [facility]; [facility] Work Phone: Comment on above: PATIENT WAS FASTINGP ERFORMED BY: CB [facility] [id number] [address] RoadDublin [place] [id number] WBC (Bld) [#/Vol] 3.6 10*3/uL Normal 3.4-10.8 [facility]; [facility] Work Phone: Comment on above: PATIENT WAS FASTINGP ERFORMED BY: DELFINO [facility] [id number] [address] RoadDublin [place] [id number] Lipid Panel (43422)Ordered B y: Teacher Counselor on 10-05-2020 Cholesterol [Mass/Vol] 183 mg/dL Normal 100-199 [facility]; [facility] Work Phone: Comment on above: PATIENT WAS FASTINGP ERFORMED BY: DELFINO [facility] [id number] [address] RoadDublin [place] [id number] Cholesterol in HDL [Mass/Vol] 38 mg/dL Abnormal [facility]; [facility] Work Phone: Comment on above: PATIENT WAS FASTINGP ERFORMED BY: DELFINO [facility] [id number] [address] RoadDublin [place] [id number] Triglyceride [Mass/Vol] 139 mg/dL Normal 0-149 [facility]; [facility] Work Phone: Comment on above: PATIENT WAS FASTINGP ERFORMED BY: DELFINO [facility] [id number] [address] RoadDublin [place] [id number] Lipid Panel (29832) 25 mg/dL Normal 5-40 [facility]; [facility] Work Phone: Comment on above: PATIENT WAS FASTINGP ERFORMED BY: DELFINO [facility] [id number] [address] RoadDublin [place] [id number] Lipid Panel (46094) 120 mg/dL Abnormal 0-99 [facility]; [facility] Work Phone: Comment on above: PATIENT WAS FASTINGP ERFORMED BY: CB [facility] [id number] [address] RoadDublin [place] [id number] Lipid Panel (07515) 3.2 {ratio} Normal 0.0-3.[address] [facility]; [facility] Work Phone: Comment on above: LDL/HDL Ratio Men Wo men 1/2 Avg.Risk 1.0 1.5 Avg.Risk 3.6 3.2 2X Avg.Risk 6.2 5.0 3X Avg.Risk 8.0 6.1 PATIENT WAS FASTINGP ERFORMED BY: CB [facility] [id number] [address]Dublin [place] [id number] Metabolic Panel, Comprehensi ve (66553)Ordered By: Teacher Counselor on 10-05-2020 Albumin [Mass/Vol] 4.2 g/dL Normal 3.8-4.8 [facility]; [facility] Work Phone: Comment on above: PATIENT WAS FASTINGP ERFORMED BY: CB [facility] [id number] [address] RoadDublin [place] [id number] Albumin/Globulin [Mass ratio] 1.6 {ratio} Normal 1.2-2.2 [facility]; [facility] Work Phone: Comment on above: PATIENT WAS FASTINGP ERFORMED BY: CB [facility] [id number] [address]Dublin [place] [id number] ALP [Catalytic activity/Vol] 50 U/L Normal 48-121 [facility]; [facility] Work Phone: Comment on above: PATIENT WAS FASTINGP ERFORMED BY: CB [facility] [id number] [address] RoadDublin [place] [id number] ALT [Catalytic activity/Vol] 7 U/L Normal 0-32 [facility]; [facility] Work Phone: Comment on above: PATIENT WAS FASTINGP ERFORMED BY: CB [facility] Nexvsz3662 [address]Dublin [place] [id number] AST [Catalytic activity/Vol] 16 U/L Normal 0-40 [facility]; [facility] Work Phone: Comment on above: PATIENT WAS FASTINGP ERFORMED BY: [facility] Dupomr0441 [address] RoadDublin [place] [id number] Bilirubin [Mass/Vol] 0.6 mg/dL Normal 0.0-1.2 Comp rehensive Internal Medicine; [facility] Work Phone: Comment on above: PATIENT WAS FASTINGP ERFORMED BY: [facility] [id number] [address]ublin [place] [id number] Calcium [Mass/Vol] 9.0 mg/dL Normal 8.7-10.2 [facility] Internal [facility]; [facility] Work Phone: Comment on above: PATIENT WAS FASTINGP ERFORMED BY: [facility] Zivxdh5176 [address]Dublin [place] [id number] Chloride [Moles/Vol] 106 mmol/L Normal 96-106 Comp rehensive Internal Medicine; [facility] Work Phone: Comment on above: PATIENT WAS FASTINGP ERFORMED BY: [facility] Qaubhh8959 [address] RoadDublin [place] [id number] CO2 [Moles/Vol] 23 mmol/L Normal 20-29 [facility]; [facility] Work Phone: Comment on above: PATIENT WAS FASTINGP ERFORMED BY: [facility] Opmpgc5366 [address]Dublin [place] [id number] Creatinine [Mass/Vol] 0.84 mg/dL Normal 0.57-1.00 [facility] prehensive Internal Medicine; [facility] Work Phone: Comment on above: PATIENT WAS FASTINGP ERFORMED BY: [facility] Ynrzae9604 [address]blin [place] [id number] GFR/1.73 sq M.predicted among blacks CKD-EPI (S/P/Bld) [Vol rate/Area] 97 mL/min/1.73 Normal [facility]; [facility] Work Phone: Comment on above: [facility] currently reports eGFR in compliance with the current recommendations of the National Kidney Foundation. [facility] will update reporting as new guidelines are published from the NKF-ASN Task force. PATIENT WAS FASTINGP ERFORMED BY: [facility] [id number] GFR/1.73 sq M.predicted among non-blacks CKD-EPI (S/P/Bld) [Vol rate/Area] 84 mL/min/1.73 Normal [facility]; [facility] Work Phone: Comment on above: PATIENT WAS FASTINGP ERFORMED BY: [facility] [id number] Globulin (S) [Mass/Vol] 2.6 g/dL Normal 1.5-4.5 [facility]; [facility] Work Phone: Comment on above: PATIENT WAS FASTINGP ERFORMED BY: [facility] [id number] Glucose [Mass/Vol] 99 mg/dL Normal 65-99 [facility] Internal Medicine; [facility] Work Phone: Comment on above: PATIENT WAS FASTINGP ERFORMED BY: [facility] [id number] Potassium [Moles/Vol] 4.1 mmol/L Normal 3.5-5.2 [facility] prehensive Internal Medicine; [facility] Work Phone: Comment on above: PATIENT WAS FASTINGP ERFORMED BY: [facility] [id number] Protein [Mass/Vol] 6.8 g/dL Normal 6.0-8.5 [facility] Internal Medicine; [facility] Work Phone: Comment on above: PATIENT WAS FASTINGP ERFORMED BY: [facility] [id number] Sodium [Moles/Vol] 141 mmol/L Normal 134-144 [facility] Internal Medicine; [facility] Work Phone: Comment on above: PATIENT WAS FASTINGP ERFORMED BY: [facility] [id number] Urea nitrogen [Mass/Vol] 11 mg/dL Normal 6-24 [facility]; [facility] Work Phone: Comment on above: PATIENT WAS FASTINGP ERFORMED BY: [employer] Eewieu[address] [id number] Urea nitrogen/Creatinine [Mass ratio] 13 mg/mg Normal 9-23 [facility]; [facility] Work Phone: Comment on above: PATIENT WAS FASTINGP ERFORMED BY: [facility] CorporationGarden [facility] [id number] TSH (THYROID STIMULATING HOR EDWAR) ([id number])Ordered By: Teacher Counselor on 10-05-2020 TSH Qn 0.975 {uIU/mL} Normal 0.450-4.500 [facility] Internal Medicine; [facility] Work Phone: Comment on above: PATIENT WAS FASTINGP ERFORMED BY: [employer] Sfzyly[address] [id number] URINE NICHOL CULTURE[place]IDENTIF[place] ([id number])Ordered By: Teacher Counselor on 09-04-2020 Bacteria identified Cx Nom (U) Final report Abnormal [facility]; [facility] Work Phone: Comment on above: PATIENT NOT FASTINGP ERFORMED BY: [employer] Tupway[address] [id number] Information: SRC:UC Bacteria identified Cx Nom (U) Escherichia coli Abnormal [facility]; [facility] Work Phone: Comment on above: 10,000-25,000 colony forming units per mLCefazolin <=4 ug/mLCefazolin with an CHERI <=16 predicts susceptibility to the oral agentscefaclor, cefdinir, cefpodoxime, cefprozil, cefuroxime, cephalexin,and loracarbef when used for therapy of uncomplicated urinary tractinfections due to E. coli, Klebsiella pneumoniae, and Proteusmirabilis. PATIENT NOT FASTINGP ERFORMED BY: [facility] CorporationGarden City Hospital[address] [id number] Information: SRC: Other Antibiotic [Susc] MIHEAD Normal [facility]; [facility] Work Phone: Comment on above: S = Susceptible; I = Intermediate; R = Resistant P = Positive; N = Negative MICS are expressed in micrograms per mL Antibiotic RSLT#1 RSLT#2 RSLT#3 RSLT#4Amoxicillin/Clavulanic Acid SAmpicillin SCefepime SCeftriaxone SCefuroxime SCiprofloxacin SErtapenem SGentamicin SImipenem SLevofloxacin SMeropenem SNitrofurantoin SPiperacillin/Tazobactam STetracycline STobramycin STrimethoprim/Sulfa S PATIENT NOT FASTINGP ERFORMED BY: DELFINO [facility] Nbtdpe6[address] RoadDublWestern State Hospital [id number] Information: SRC:YOAN Urinalysis, Office ([id number])Or dered By: Nghia Jefferson on 09-04-2020 Bilirubin Ql (U) Negative Normal Comprehe nsive Internal Medicine; [facility] Work Phone: Glucose Test strip (U) [Mass/Vol] Negative Normal [facility]; [facility] Work Phone: Hemoglobin Ql (U) +++ Abnormal Compreh ensive Internal Medicine; [facility] Work Phone: Ketones Ql (U) 5 mg/dL Abnormal Comprehens riri Internal Medicine; [facility] Work Phone: Leukocyte esterase Test strip Ql (U) Small Normal [facility]; [facility] Work Phone: Nitrite Ql (U) Negative Normal Comprehens riri Internal Medicine; [facility] Work Phone: pH (U) 5 [pH] Abnormal [facility]; [facility] Work Phone: Protein Ql (U) + Abnormal Comprehens riri Internal Medicine; [facility] Work Phone: Specific gravity (U) [Rel density] 1.030 1 Abnormal [facility]; [facility] Work Phone: Urobilinogen (24H U) [Mass/Time] Normal Normal [facility]; [facility] Work Phone: DAVID SCREENING W TOMOon 03-08 DAVID SCREENING W AUBREY Final Report DATE OF EXAM: Mar 08 2020 3:30PM AAW [id number] - DAVID SCREENING W AUBREY / PROCEDURE REASON: aubrey screening Physician Interpretation #[id number] - DAVID SCREENING W AUBREY BILATERAL DIGITAL SCREENING MAMMOGRAM TOMOSYNTHESIS WITH CAD: 03/08/2020 HISTORY: Aubrey Screening\ Routine screening mammogram. Patient reports no breast problems. RESULT: TECHNIQUE: The study was acquired using full field digital technology and interpreted from soft copy. Digital Breast Tomosynthesis (DBT) images were obtained and used to assist in the interpretation of this examination. Current study was also evaluated with a Computer Aided Detection (CAD). Comparison is made to exams dated: 12/09/2018 mammogram, 11/20/2017 mammogram - [facility], and 10/07/2016 mammogram - [facility]. The tissue of both breasts is heterogeneously dense. This may lower the sensitivity of mammography. No significant masses, calcifications, or other findings are seen in either breast. There has been no significant interval change. IMPRESSION: NEGATIVE There is no mammographic evidence of malignancy. A 1 year screening mammogram is recommended. 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 With representation from Breast Imaging, Internal Medicine, Women's Health, Family Medicine, and Medical/Surgical Oncology, the [facility] has carefully reviewed the data and reached the following consensus: 1) All women should engage in shared decision-making with their providers to decide when to start and how often to screen; 2) All women should have the opportunity to start screening mammography at age 40; 3) For women ages 45-55, we recommend annual screening mammograms; 4) For women ages 55 and over, we support both the transition from an annual to a biennial interval if this aligns more with patient's values and preferences, or continuation with annual screening; 5) All women should discuss with their providers when to stop screening mammograms. Body Presser: Gino Transcribe Date/Time: Mar 08 2020 3:13P Dictated by : MARCE CAIN MD This examination was interpreted and the report reviewed and electronically signed by: MARCE CAIN MD on Mar 08 2020 4:11PM EST Normal [facility] URINE N[place]OL [place]ULTURE[place] ([id number])Ordered By: Teacher Counselor on 02-20-2020 Bacteria identified Cx Nom (U) Final report Abnormal [facility]; [facility] Work Phone: Comment on above: PATIENT NOT FASTINGP ERFORMED BY: DELFINO [employer] Mhdlrt2040 [facility] [id number] Information: SRC: Bacteria identified Cx Nom (U) Escherichia coli Abnormal [facility]; [facility] Work Phone: Comment on above: 10,000-25,000 colony forming units per mLCefazolin <=4 ug/mLCefazolin with an CHERI <=16 predicts susceptibility to the oral agentscefaclor, cefdinir, cefpodoxime, cefprozil, cefuroxime, cephalexin,and loracarbef when used for therapy of uncomplicated urinary tractinfections due to E. coli, Klebsiella pneumoniae, and Proteusmirabilis. PATIENT NOT FASTINGP ERFORMED BY: [employer] Jayfki[address] [place] [id number] Information: SRC:UC Other Antibiotic [Susc] MIHEAD Normal [facility]; [facility] Work Phone: Comment on above: S = Susceptible; I = Intermediate; R = Resistant P = Positive; N = Negative MICS are expressed in micrograms per mL Antibiotic RSLT#1 RSLT#2 RSLT#3 RSLT#4Amoxicillin/Clavulanic Acid SAmpicillin SCefepime SCeftriaxone SCefuroxime SCiprofloxacin SErtapenem SGentamicin SImipenem SLevofloxacin SMeropenem SNitrofurantoin SPiperacillin/Tazobactam STetracycline STobramycin STrimethoprim/Sulfa S PATIENT NOT FASTINGP ERFORMED BY: DELFINO [facility] Bgpikw[address] [id number] Information: SRC:YOAN Urinalysis, Office ([id number])Or dered By: Nghia Jefferson on 02-20-2020 Bilirubin Ql (U) Negative Normal Comprehe nsive Internal Medicine; [facility] Work Phone: Bilirubin Ql (U) Negative Normal Comprehe nsive Internal Medicine; [facility] Work Phone: Glucose Test strip (U) [Mass/Vol] Negative Normal [facility]; [facility] Work Phone: Glucose Test strip (U) [Mass/Vol] Negative Normal [facility]; [facility] Work Phone: Hemoglobin Ql (U) +++ Abnormal Compreh ensive Internal Medicine; [facility] Work Phone: Ketones Ql (U) Negative Normal Comprehens riri Internal Medicine; [facility] Work Phone: Ketones Ql (U) Negative Normal Comprehens riri Internal Medicine; [facility] Work Phone: Leukocyte esterase Test strip Ql (U) Negative Normal [facility]; [facility] Work Phone: Leukocyte esterase Test strip Ql (U) Negative Normal [facility]; [facility] Work Phone: Nitrite Ql (U) Negative Normal Comprehens riri Internal Medicine; [facility] Work Phone: Nitrite Ql (U) Negative Normal Comprehens riri Internal Medicine; [facility] Work Phone: pH (U) 7 [pH] Normal [facility]; [facility] Work Phone: Protein Ql (U) Negative Normal Comprehens riri Internal Medicine; [facility] Work Phone: Protein Ql (U) Negative Normal Comprehens riri Internal Medicine; [facility] Work Phone: Specific gravity (U) [Rel density] 1.015 1 Normal [facility]; [facility] Work Phone: Urobilinogen (24H U) [Mass/Time] Normal Normal [facility]; [facility] Work Phone: JENA (ANTINUCLEAR ANTIBODY) ( [id number])Ordered By: Teacher Counselor on 04-18-2019 Nuclear Ab Ql (S) Negative Normal Compreh ensive Internal Medicine; [facility] Work Phone: Comment on above: PATIENT WAS FASTINGP ERFORMED BY: CB [facility] Azllgw9109 [address] RoadDublin [place] [id number] Nuclear Ab Ql (S) Negative Normal Compreh ensive Internal Medicine; [facility] Work Phone: Comment on above: PATIENT WAS FASTINGP ERFORMED BY: CB [facility] Vunisb4388 [address] RoadDublin [place] [id number] C-REACTIVE PROTEIN ([id number])Or dered By: Teacher Counselor on 04-18-2019 CRP [Mass/Vol] mg/L Normal 0-10 Comprehens riri Internal Medicine; [facility] Work Phone: Comment on above: PATIENT WAS FASTINGP ERFORMED BY: CB [facility] Peqjak7493 [address] RoadDublin [place] [id number] CRP [Mass/Vol] mg/L Normal 0-10 Comprehens riri Internal Medicine; [facility] Work Phone: Comment on above: PATIENT WAS FASTINGP ERFORMED BY: CB [facility] Mmvbpz5009 [address] RoadDublin [place] [id number] CALCIFEDIOL ([id number])Ordered B y: Teacher Counselor on 04-18-2019 25-Hydroxyvitamin D2+25-Hydroxyvitamin D3 [Mass/Vol] 31.8 ng/mL Normal 30.0-100.0 [facility]; [facility] Work Phone: Comment on above: Vitamin D deficiency has been defined by the [place] ofMedicine and an Endocrine Society practice guideline as alevel of serum 25-OH vitamin D less than 20 ng/mL (1,2).The Endocrine Society went on to further define vitamin Dinsufficiency as a level between 21 and 29 ng/mL (2).1. IOM ([place] of Medicine). 2010. Dietary reference intakes for calcium and D. [place]: The National Academies Press.2. Bladimir MF, Rasheed [place], Dilcia [place], et al. Evaluation, treatment, and prevention of vitamin D deficiency: an Endocrine Society clinical practice guideline. JCEM. 2010; 96(7):1911-30. PATIENT WAS FASTINGP ERFORMED BY: CB [facility] Rwegac3308 [address] RoadDublin [place] [id number] CBC & PLATELETS (AUTO) ([id number])Ordered By: Teacher Counselor on 04-18-2019 Erythrocyte distribution width (RBC) [Ratio] 12.4 % Normal 11.7-15.4 [facility]; [facility] Work Phone: Comment on above: PATIENT WAS FASTINGP ERFORMED BY: CB [facility] Vqugda0711 [address] RoadDublin [place] [id number] Hematocrit (Bld) [Volume fraction] 42.8 % Normal 34.0-46.6 [facility] Internal Medicine; [facility] Work Phone: Comment on above: PATIENT WAS FASTINGP ERFORMED BY: CB [facility] Xetyty5475 [address] RoadDublin [place] [id number] Hemoglobin (Bld) [Mass/Vol] 13.9 g/dL Normal 11.1-15.9 [facility] Internal Medicine; [facility] Work Phone: Comment on above: PATIENT WAS FASTINGP ERFORMED BY: CB [facility] Yldumx0281 [address] RoadDublin [place] [id number] MCH (RBC) [Entitic mass] 30.1 pg Normal 26.6-33.0 [facility] Internal Medicine; [facility] Work Phone: Comment on above: PATIENT WAS FASTINGP ERFORMED BY: CB [facility] Twzobg9112 [address] RoadDublin [place] [id number] MCHC (RBC) [Mass/Vol] 32.5 g/dL Normal 31.5-35.7 [facility] prehensive Internal Medicine; [facility] Work Phone: Comment on above: PATIENT WAS FASTINGP ERFORMED BY: CB [facility] Uiqwdn5869 [address] RoadDublin [place] [id number] MCV (RBC) [Entitic vol] 93 fL Normal 79-97 [facility]; [facility] Work Phone: Comment on above: PATIENT WAS FASTINGP ERFORMED BY: DELFINO LabCosona BlairFkhjbb3843 W[address] RoadDublin [place] [id number] Platelets (Bld) [#/Vol] 268 {x10E3/uL} Normal 150-450 [facility]; [facility] Work Phone: Comment on above: PATIENT WAS FASTINGP ERFORMED BY: CB [facility] Azldoo7679 [address] RoadDublin [place] [id number] Platelets (Bld) [#/Vol] 268 10*3/uL Normal 150-450 [facility]; [facility] Work Phone: Comment on above: PATIENT WAS FASTINGP ERFORMED BY: DELFINO [facility] Ufdfca9185 [address] RoadDublin [place] [id number] RBC (Bld) [#/Vol] 4.62 {x10E6/uL} Normal 3.77-5.28 [facility]; [facility] Work Phone: Comment on above: PATIENT WAS FASTINGP ERFORMED BY: DELFINO [facility] Bpprpc2656 [address] RoadDublin [place] [id number] RBC (Bld) [#/Vol] 4.62 10*6/uL Normal 3.77-5.28 [facility]; [facility] Work Phone: Comment on above: PATIENT WAS FASTINGP ERFORMED BY: CB [facility] Itqvqy1258 [address] RoadDublin [place] [id number] WBC (Bld) [#/Vol] 4.9 {x10E3/uL} Normal 3.4-10.8 [facility]; [facility] Work Phone: Comment on above: PATIENT WAS FASTINGP ERFORMED BY: CB [facility] Ldlagg1207 [address] RoadDublin [place] [id number] WBC (Bld) [#/Vol] 4.9 10*3/uL Normal 3.4-10.8 Compre hensive Internal Medicine; [facility] Work Phone: Comment on above: PATIENT WAS FASTINGP ERFORMED BY: DELFINO [facility] Zauavi8749 [address] RoadDublin [place] [id number] Folate ([id number])Ordered By: stem Developmental Behavioral Physician on 04-18-2019 Folate [Mass/Vol] 4.2 ng/mL Normal Compreh ensive Internal Medicine; [facility] Work Phone: Comment on above: A serum folate jodi ntration of less than 3.1 ng/mL isconsidered to represent clinical deficiency. PATIENT WAS FASTINGP ERFORMED BY: DELFINO [facility] Nzvvwv5621 [address] RoadDublin [place] [id number] LIPID PANEL ([id number])Ordered B y: Teacher Counselor on 04-18-2019 Cholesterol [Mass/Vol] 197 mg/dL Normal 100-199 [facility]; [facility] Work Phone: Comment on above: PATIENT WAS FASTINGP ERFORMED BY: DELFINO LabCalliesona Dgwdop1482 [address] RoadDublin [place] [id number] Cholesterol in HDL [Mass/Vol] 42 mg/dL Normal [facility]; [facility] Work Phone: Comment on above: PATIENT WAS FASTINGP ERFORMED BY: DELFINO LabCos[facility] Uhwulc3739 [address] RoadDublin [place] [id number] Cholesterol in LDL [Mass/Vol] 131 mg/dL Abnormal 0-99 [facility]; [facility] Work Phone: Comment on above: PATIENT WAS FASTINGP ERFORMED BY: DELFINO [facility] Wopwas0588 [address] RoadDublin [place] [id number] Cholesterol in LDL/Cholesterol in HDL [Mass ratio] 3.1 {ratio} Normal 0.0-3.2 [facility]; [facility] Work Phone: Comment on above: LDL/HDL Ratio Men Wo men 1/2 Avg.Risk 1.0 1.5 Avg.Risk 3.6 3.2 2X Avg.Risk 6.2 5.0 3X Avg.Risk 8.0 6.1 PATIENT WAS FASTINGP ERFORMED BY: DELFINO [facility] Wgfmfl3769 [address] RoadDublin [place] [id number] Cholesterol in VLDL [Mass/Vol] 24 mg/dL Normal 5-40 [facility]; [facility] Work Phone: Comment on above: PATIENT WAS FASTINGP ERFORMED BY: DELFINO Blair[address] [facility] [id number] Triglyceride [Mass/Vol] 120 mg/dL Normal 0-149 [facility]; [facility] Work Phone: Comment on above: PATIENT WAS FASTINGP ERFORMED BY: DELFINO Pagan Kayaqh[address] [id number] Metabolic Panel, Comprehensi ve ([id number])Ordered By: Teacher Counselor on 04-18-2019 Albumin [Mass/Vol] 4.4 g/dL Normal 3.8-4.8 [facility] Internal Medicine; [facility] Work Phone: Comment on above: PATIENT WAS FASTINGP ERFORMED BY: DELFINO [employer]agan Spdjfs[address] [facility] [id number] Albumin/Globulin [Mass ratio] 1.7 {ratio} Normal 1.2-2.2 [facility]; [facility] Work Phone: Comment on above: PATIENT WAS FASTINGP ERFORMED BY: DELFINO Muñozlin[address] [facility] [id number] ALP [Catalytic activity/Vol] 41 [iU]/L Normal 39-117 [facility]; [facility] Work Phone: Comment on above: PATIENT WAS FASTINGP ERFORMED BY: DELFINO Pagan Cklixl6110 [facility] [id number] ALP [Catalytic activity/Vol] 41 U/L Normal 39-117 [facility]; [facility] Work Phone: Comment on above: PATIENT WAS FASTINGP ERFORMED BY: DELFINO Pagan Ypfsqu[address] [facility] [id number] ALT [Catalytic activity/Vol] 12 [iU]/L Normal 0-32 [facility]; [facility] Work Phone: Comment on above: PATIENT WAS FASTINGP ERFORMED BY: DELFINO [facility] Fmnzfc2850 [address] RoadDublin [place] [id number] ALT [Catalytic activity/Vol] 12 U/L Normal 0-32 [facility]; [facility] Work Phone: Comment on above: PATIENT WAS FASTINGP ERFORMED BY: DELFINO [facility] Bbdtdd9875 [address] RoadDublin [place] [id number] AST [Catalytic activity/Vol] 14 [iU]/L Normal 0-40 [facility]; [facility] Work Phone: Comment on above: PATIENT WAS FASTINGP ERFORMED BY: [facility] Foeorp6433 [address] RoadDublin [place] [id number] AST [Catalytic activity/Vol] 14 U/L Normal 0-40 [facility]; [facility] Work Phone: Comment on above: PATIENT WAS FASTINGP ERFORMED BY: DELFINO McculloughOzarks [facility] Hospital Mpdhsu4139 [address] RoadDublin [place] [id number] Bilirubin [Mass/Vol] 0.4 mg/dL Normal 0.0-1.2 Comp rehensive Internal Medicine; [facility] Work Phone: Comment on above: PATIENT WAS FASTINGP ERFORMED BY: DELFINO [facility] Fcyqly1925 [address] RoadDublin [place] [id number] Calcium [Mass/Vol] 9.2 mg/dL Normal 8.7-10.2 [facility] Internal Medicine; [facility] Work Phone: Comment on above: PATIENT WAS FASTINGP ERFORMED BY: [facility] Wokzjg3828 [address] RoadDublin [place] [id number] Chloride [Moles/Vol] 104 mmol/L Normal 96-106 Comp rehensive Internal Medicine; [facility] Work Phone: Comment on above: PATIENT WAS FASTINGP ERFORMED BY: [facility] Zwnqug9662 [address] RoadDublin [place] [id number] CO2 [Moles/Vol] 22 mmol/L Normal 20-29 Comprehen [facility] Internal Medicine; [facility] Work Phone: Comment on above: PATIENT WAS FASTINGP ERFORMED BY: CB [facility] Pirvtw0389 [address] RoadDublin [place] [id number] Creatinine [Mass/Vol] 0.77 mg/dL Normal 0.57-1.00 [facility] [facility] prehensive Internal Medicine; Comprehensive Internal Medicine Work Phone: Comment on above: PATIENT WAS FASTINGP ERFORMED BY: CB [facility] Oyerak[address] RoadDublin [place] [id number] GFR/1.73 sq M predicted among blacks CKD-EPI (S/P/Bld) [Vol rate/Area] 109 mL/min/1.73 Normal [facility]; [facility] Work Phone: Comment on above: PATIENT WAS FASTINGP ERFORMED BY: CB [facility] Ukdqia0937 [address] RoadDublin [place] [id number] GFR/1.73 sq M predicted among non-blacks CKD-EPI (S/P/Bld) [Vol rate/Area] 94 mL/min/1.73 Normal [facility]; [facility] Work Phone: Comment on above: PATIENT WAS FASTINGP ERFORMED BY: [facility] Jfsoca0436 [address] RoadDublin [place] [id number] Globulin (S) [Mass/Vol] 2.6 g/dL Normal 1.5-4.5 [facility] Internal Medicine; [facility] Internal [facility] Work Phone: Comment on above: PATIENT WAS FASTINGP ERFORMED BY: [facility] Lvoeay59[address] RoadDublin [place] [id number] Glucose [Mass/Vol] 98 mg/dL Normal 65-99 [facility] Internal Medicine; [facility] Internal Medicine Work Phone: Comment on above: PATIENT WAS FASTINGP ERFORMED BY: CB [facility] Foxakx[address]Dublin [place] [id number] Potassium [Moles/Vol] 4.2 mmol/L Normal 3.5-5.2 [facility] Internal Medicine; Comprehensive Internal Medicine Work Phone: Comment on above: PATIENT WAS FASTINGP ERFORMED BY: CB [facility] Diczkd8284 [address]Dublin [place] [id number] Protein [Mass/Vol] 7.0 g/dL Normal 6.0-8.5 [facility] Internal Medicine; [facility] Internal Medicine Work Phone: Comment on above: PATIENT WAS FASTINGP ERFORMED BY: [facility] Mlkdxx9789 [address] RoadDublin [place] [id number] Sodium [Moles/Vol] 140 mmol/L Normal 134-144 [facility] Internal Medicine; [facility] Work Phone: Comment on above: PATIENT WAS FASTINGP ERFORMED BY: [facility] Qozrfa7170 [address] RoadDublin [place] [id number] Urea nitrogen [Mass/Vol] 13 mg/dL Normal 6-24 [facility]; [facility] Work Phone: Comment on above: PATIENT WAS FASTINGP ERFORMED BY: [facility] Elrgxo[address]Dublin [place] [id number] Urea nitrogen/Creatinine [Mass ratio] 17 mg/mg Normal 9-23 [facility]; [facility] Work Phone: Comment on above: PATIENT WAS FASTINGP ERFORMED BY: [facility] Bghkbe350[address] RoadDublin [place] [id number] SED RATE ERYTHROCYTE ([id number]) Ordered By: Teacher Counselor on 04-18-2019 ESR (Bld) [Velocity] 5 mm/h Normal 0-32 [facility] Internal Medicine; [facility] Work Phone: Comment on above: PATIENT WAS FASTINGP ERFORMED BY: [facility] Vnxawv0[address] RoadDublin [place] [id number] TSH (THYROID STIMULATING HOR EDWAR) ([id number])Ordered By: Teacher Counselor on 04-18-2019 TSH Qn 1.090 {uIU/mL} Normal 0.450-4.500 [facility] Internal Medicine; Comprehensive Internal Medicine Work Phone: Comment on above: PATIENT WAS FASTINGP ERFORMED BY: [facility] Bxznpl49[address]Dublin [place] [id number] VITAMIN B-12 (CYANOCOBALAMIN ) ([id number])Ordered By: Teacher Counselor on 04-18-2019 Cobalamin (Vitamin B12) [Mass/Vol] 541 pg/mL Normal 232-1245 [facility]; [facility] Work Phone: Comment on above: PATIENT WAS FASTINGP ERFORMED BY: DELFINO [facility] Mfpasy[address]wwbl[address] [place] [id number] URINE NICHOL CULTURE-SIERRA COL C OUNT ([id number])Ordered By: Teacher Counselor on 07-24-2017 Bacteria identified Cx Nom (U) MUG Normal [facility] Work Phone: Comment on above: Mixed urogenital jose d ra1,000 Colonies/mL S = Susceptible; I = Intermediate; R = Resistant P = Positive; N = Negative MICS are expressed in micrograms per mL Antibiotic RSLT#1 RSLT#2 RSLT#3 RSLT#4Amoxicillin/Clavulanic Acid SAmpicillin SCefepime SCeftriaxone SCefuroxime SCephalothin SCiprofloxacin SErtapenem SGentamicin SImipenem SLevofloxacin SNitrofurantoin SPiperacillin STetracycline STobramycin STrimethoprim/Sulfa S PATIENT NOT FASTINGP ERFORMED BY: [facility] Kxtclh[address] DerbyJackpotin [place] [id number] Information: SRC: Bacteria identified Cx Nom (U) Final report Abnormal [facility] Medicine Work Phone: Comment on above: PATIENT NOT FASTINGP ERFORMED BY: [facility] Ogxfsh[address] CrewwAtrium Health Pineville Rehabilitation Hospitalin [place] [id number] Information: SRC: Bacteria identified Cx Nom (U) Escherichia coli Abnormal [facility] Work Phone: Comment on above: 2,000 Colonies/mL PATIENT NOT FASTINGP ERFORMED BY: [facility] Ntggvy4[address] Roadblin [place] [id number] Information: SRC: Urinalysis, Office ([id number])Or dered By: Roxann Diego on 07-24-2017 Bilirubin Ql (U) Moderate Normal Comprehe nsive Internal Medicine Work Phone: Glucose Test strip mass conc (U) Negative Normal [facility] Work Phone: Hemoglobin Ql (U) +++ Abnormal Compreh ensive Internal Medicine Work Phone: Ketones Ql (U) Small Normal Comprehens riri Internal Medicine Work Phone: Leukocyte esterase Test strip Ql (U) Small Normal [facility] Internal [facility] Work Phone: Nitrite Ql (U) Negative Normal Comprehens riri Internal Medicine Work Phone: pH (U) 6 [pH] Abnormal [facility] Work Phone: Protein Ql (U) 100 mg/dL Normal Comprehens riri Internal Medicine Work Phone: Specific gravity Relative Density (U) 1.030 1 Abnormal Comprehensi ve Internal Medicine Work Phone: Urobilinogen mass/time (24H U) Normal Normal Comprehensive [facility] Work Phone: Urinalysis, Office ([id number])on 07-24-2017 Glucose Test strip (U) [Mass/Vol] Negative Normal [facility]; [facility] Work Phone: Nitrite Ql (U) Negative Normal Comprehens riri Internal Medicine; Comprehensive Internal Medicine Work Phone: C-Reactive Protein ([id number])Or dered By: Teacher Counselor on 07-04-2016 CRP High sensitivity method mass conc 35.00 mg/L Abnormal 0.0-3.0 [facility] Work Phone: Comment on above: C-Reactive Protein ( CRP) provides useful information for thediagnosis, therapy and monitoring of inflammatory processesand associated diseases. For the evaluation of Relative Riskfor Cardiovascular Disease, a High Sensitivity CRP (HSCRP)should be ordered. Order Date: 07/04/16 Order Info: 0786-1 - CMPOrder Info: [id number] - MGOrder Info: [id number] - CRPOrder Date: 07/04/16Order Info: 0381-1 - [facility] [address] [place], [address] Comprehensive Metabolic Prof ilOrdered By: Teacher Counselor on 07-04-2016 Comprehensive metabolic 2000 panel 1.2 {RATIO} Normal 0.9-2.4 Comprehensi ve Internal Medicine Work Phone: Comment on above: Order Date: 07/04/16 Order Info: 0786-1 - CMPOrder Info: 93600- 9 - MGOrder Info: 16406-1 - CRPOrder Date: 07/04/16Order Info: 0381-1 - [facility] [address] [place], [place], [id number] Comprehensive metabolic 2000 panel 83 mg/dL Normal 70-110 Comprehensi ve Internal Medicine Work Phone: Comment on above: Order Date: 07/04/16 Order Info: 0786-1 - CMPOrder Info: [id number]- 9 - MGOrder Info: 06818-9 - CRPOrder Date: 07/04/16Order Info: 0381-1 - [facility] [address] [place], [place], [id number] Comprehensive metabolic 2000 panel 107 mL/min Normal Comprehensi ve Internal Medicine Work Phone: Comment on above: GFR Calc Order Date: 07/04/16 Order Info: 0786-1 - CMPOrder Info: 17458-4 - MGOrder Info: 27143-1 - CRPOrder Date: 07/04/16Order Info: 038-1 - [facility] [address] [place], [place], [address] Comprehensive metabolic 2000 panel 10 mg/dL Normal 7-18 Comprehensi ve Internal Medicine Work Phone: Comment on above: Order Date: 07/04/16 Order Info: 0786-1 - CMPOrder Info: [id number] 9 - MGOrder Info: 61735-2 - CRPOrder Date: 07/04/16Order Info: 038-1 - [facility] Ketbjfascd[address] [place], [place], [id number] Comprehensive metabolic 2000 panel 0.77 mg/dL Normal 0.55-1.02 Comprehensi ve Internal Medicine Work Phone: Comment on above: The validity of the calculated GFR AND GFRAA in patients over70 years has not been determined. Clinical correlation isessential. Order Date: 07/04/16 Order Info: 0786-1 - CMPOrder Info: 24409-4 - MGOrder Info: 46396-5 - CRPOrder Date: 07/04/16Order Info: 038-1 - [facility] [address] [place], [place], [address] Comprehensive metabolic 2000 panel 88 mL/min Normal Comprehensi ve Internal Medicine Work Phone: Comment on above: Non- GFR Calc Order Date: 07/04/16 Order Info: 0786-1 - CMPOrder Info: 47024-7 - MGOrder Info: 51395-7 - CRPOrder Date: 07/04/16Order Info: 038- - [facility] [address]ut[address] [place], [place], [id number] Comprehensive metabolic 2000 panel 13.1 {RATIO} Normal 10-20 Comprehensi ve Internal Medicine Work Phone: Comment on above: Order Date: 07/04/16 Order Info: 0786-1 - CMPOrder Info: 52088- 9 - MGOrder Info: 27794-1 - CRPOrder Date: 07/04/16Order Info: 038-1 - [facility] [address]lt[address] [place], [place], [address] Comprehensive metabolic 2000 panel 7.5 g/dL Normal 6.4-8.2 Comprehensi ve Internal Medicine Work Phone: Comment on above: Order Date: 07/04/16 Order Info: 0786-1 - CMPOrder Info: [id number]- 9 - MGOrder Info: 56070-3 - CRPOrder Date: 07/04/16Order Info: 038-1 - [facility] [address] [place], [place], [address] Comprehensive metabolic 2000 panel 4.1 g/dL Normal 3.4-5.0 Comprehensi ve Internal Medicine Work Phone: Comment on above: Order Date: 07/04/16 Order Info: 0786-1 - CMPOrder Info: 54030- 9 - MGOrder Info: 24022-0 - CRPOrder Date: 07/04/16Order Info: 0381-1 - [facility] [address] [place], [place], [address] Comprehensive metabolic 2000 panel 3.4 g/dL Normal 2.3-3.5 Comprehensi ve Internal Medicine Work Phone: Comment on above: Order Date: 07/04/16 Order Info: 0786-1 - CMPOrder Info: 03082- 9 - MGOrder Info: 58493-9 - CRPOrder Date: 07/04/16Order Info: 038- - [facility] [address]se[address] [place], [place], [address] Comprehensive metabolic 2000 panel 8.8 mg/dL Normal 8.5-10.1 Comprehensi ve Internal Medicine Work Phone: Comment on above: Order Date: 07/04/16 Order Info: 0786-1 - CMPOrder Info: 01876- 9 - MGOrder Info: 65252-7 - CRPOrder Date: 07/04/16Order Info: 038- - [facility] [address]trw[address] [place], [place], [address] Comprehensive metabolic 2000 panel 8 1 Normal 5-15 Comprehensi ve Internal Medicine Work Phone: Comment on above: Order Date: 07/04/16 Order Info: 0786-1 - CMPOrder Info: [id number]- 9 - MGOrder Info: 08970-3 - CRPOrder Date: 07/04/16Order Info: 038- - [facility] [address] [place], [place], [address] Comprehensive metabolic 2000 panel 27.0 mmol/L Normal 21.0-32.0 Comprehensi ve Internal Medicine Work Phone: Comment on above: Order Date: 07/04/16 Order Info: 0786-1 - CMPOrder Info: 61792- 9 - MGOrder Info: 89674-9 - CRPOrder Date: 07/04/16Order Info: 038-1 - [facility] [address]lf[address] [place], [place], [address] Comprehensive metabolic 2000 panel 9 U/L Abnormal 15-37 Comprehensi ve Internal Medicine Work Phone: Comment on above: Order Date: 07/04/16 Order Info: 0786-1 - CMPOrder Info: 50400- 9 - MGOrder Info: 56420-8 - CRPOrder Date: 07/04/16Order Info: 038-1 [facility] [address] [place], [place], [address] Comprehensive metabolic 2000 panel 102 mmol/L Normal 98-107 Comprehensi ve Internal Medicine Work Phone: Comment on above: Order Date: 07/04/16 Order Info: 0786-1 - CMPOrder Info: 23273- 9 - MGOrder Info: 05674-5 - CRPOrder Date: 07/04/16Order Info: 038- [facility] [address] [place], [place], [address] Comprehensive metabolic 2000 panel 50 U/L Normal 45-117 Comprehensi ve Internal Medicine Work Phone: Comment on above: Order Date: 07/04/16 Order Info: 0786-1 - CMPOrder Info: 79731- 9 - MGOrder Info: 46656-3 - CRPOrder Date: 07/04/16Order Info: 038-1 - [facility] [address]ok[address] [place], [place], [address] Comprehensive metabolic 2000 panel 13 U/L Normal 12-78 Comprehensi ve Internal Medicine Work Phone: Comment on above: Order Date: 07/04/16 Order Info: 0786-1 - CMPOrder Info: 34411- 9 - MGOrder Info: 91294-7 - CRPOrder Date: 07/04/16Order Info: 038- [facility] [address] [place], [address] Comprehensive metabolic 2000 panel 0.90 mg/dL Normal 0.20-1.00 Comprehensi ve Internal Medicine Work Phone: Comment on above: Order Date: 07/04/16 Order Info: 0786-1 - CMPOrder Info: 52592- 9 - MGOrder Info: 48190-5 - CRPOrder Date: 07/04/16Order Info: 038-1 - [facility] [address] [place], [place], [address] Comprehensive metabolic 2000 panel 137 mmol/L Normal 136-145 Comprehensi ve Internal Medicine Work Phone: Comment on above: Order Date: 07/04/16 Order Info: 0786-1 - CMPOrder Info: [id number]- 9 - MGOrder Info: 74778-0 - CRPOrder Date: 07/04/16Order Info: 038-1 - [facility] [address] [place], [place], [address] Comprehensive metabolic 2000 panel 4.3 mmol/L Normal 3.5-5.1 Comprehensi ve Internal Medicine Work Phone: Comment on above: Order Date: 07/04/16 Order Info: 0786-1 - CMPOrder Info: 94545- 9 - MGOrder Info: 87584-2 - CRPOrder Date: 07/04/16Order Info: 038-1 - [facility] [address] [place], [address] Erythrocyte Sed RateOrdered By: Teacher Counselor on 07-04-2016 Erythrocyte Sed Rate 5 mm/h Normal 0-20 Comp rehensive Internal Medicine Work Phone: Comment on above: Order Date: 07/04/16 Order Info: [id number] - SEDOrder Date: 07/04/16Order Info: 0381-1 - [facility] [address] [place], [place], [address] Hepatitis ABC ProfileOrdered By: Teacher Counselor on 07-04-2016 Hepatitis ABC Profile Negative Normal Com prehensive Internal Medicine Work Phone: Comment on above: Order Date: 07/04/16 Order Info: 038- - HEABCOrder Date: 07/04/16Order Info: 380-02 - HEABCOrder Date: 07/04/16Order Info: 03802-16 - [facility] (refer to report for specific site)refer to report for address and phone number Hepatitis ABC Profile Comment Normal Com prehensive Internal Medicine Work Phone: Comment on above: Non reactive HCV ant ibody screen is consistent with no HCVinfection, unless recent infection is suspected or otherevidence exists to indicate HCV infection.Performed at: [facility] [address] [id number] Director: Ramiro Landis PhD, Phone: [phone] Order Date: 07/04/16 Order Info: 03802-16 - HEABCOrder Date: 07/04/16Order Info: 380-02 - HEABCOrder Date: 07/04/16Order Info: 03802-16 - [facility] (refer to report for specific site)refer to report for address and phone number Hepatitis ABC Profile <0.1 Normal 0.0-0.9 [facility] prehensive Internal Medicine Work Phone: Comment on above: Order Date: 07/04/16 Order Info: 03802-16 - HEABCOrder Date: 07/04/16Order Info: 380-02 - HEABCOrder Date: 07/04/16Order Info: 03802-16 - [facility] (refer to report for specific site)refer to report for address and phone number Hepatitis ABC Profile Non Reactive Normal C omprehensive Internal Medicine Work Phone: Comment on above: Non Reactive: Incons istent with immunity, less than 10 mIU/mL Reactive: Consistent with immunity, greater than 9.9 mIU/mL Order Date: 07/04/16 Order Info: 038-1 - HEABCOrder Date: 07/04/16Order Info: 03802-16 - HEABCOrder Date: 07/04/16Order Info: 03802-16 - [facility] (refer to report for specific site)refer to report for address and phone number Hepatitis ABC Profile Positive Abnormal Com prehensive Internal Medicine Work Phone: Comment on above: Order Date: 07/04/16 Order Info: 0381-1 - HEABCOrder Date: 07/04/16Order Info: 0381-1 - HEABCOrder Date: 07/04/16Order Info: 0381-1 - [facility] (refer to report for specific site)refer to report for address and phone number MAGNESIUM ([phone])Ordered By: Teacher Counselor on 07-04-2016 Magnesium mass conc 2.3 mg/dL Normal 1.8-2.4 Compr ehensive Internal Medicine Work Phone: Comment on above: Order Date: 07/04/16 Order Info: 0786-1 - CMPOrder Info: [id number]- 9 - MGOrder Info: 91699-3 - CRPOrder Date: 07/04/16Order Info: 0381-1 - [facility] [address]uippq[address] [place], [place], [address] URINE NICHOL CULTURE-IDENTIFICA [place] (62624)Ordered By: Teacher Counselor on 02-04-2016 Bacteria identified Cx Nom (U) Final report Abnormal Comprehensive Internal Medicine Work Phone: Comment on above: PATIENT NOT FASTINGP ERFORMED BY: DELFINO [facility] Akavhi9898 [facility] [id number] Information: SRC:UC Bacteria identified Cx Nom (U) Escherichia coli Abnormal Comprehensive Internal Medicine Work Phone: Comment on above: Greater than 100,000 colony forming units per mL PATIENT NOT FASTINGP ERFORMED BY: CB [facility] Mfyliw3639 [facility] [id number] Information: SRC:UC Other Antibiotic susc MIHEAD Normal Com prehensive Internal Medicine Work Phone: Comment on above: S = Susceptible; I = Intermediate; R = Resistant P = Positive; N = Negative MICS are expressed in micrograms per mL Antibiotic RSLT#1 RSLT#2 RSLT#3 RSLT#4Amoxicillin/Clavulanic Acid SAmpicillin SCefepime SCeftriaxone SCefuroxime SCephalothin SCiprofloxacin SErtapenem SGentamicin SImipenem SLevofloxacin SNitrofurantoin SPiperacillin STetracycline STobramycin STrimethoprim/Sulfa S PATIENT NOT FASTINGP ERFORMED BY: DELFINO [facility] Jfpcze[address]i [place]ick[place] [id number] Information: SRC:YOAN Urinalysis, Office (51714)Or dered By: Kerri Baker on 02-04-2016 Bilirubin Ql (U) Small Normal Comprehe nsive Internal Medicine Work Phone: Glucose Test strip mass conc (U) Negative Normal Comprehensive Internal Medicine Work Phone: Hemoglobin Ql (U) Hemolyzed Large Normal Co mprehensive Internal Medicine Work Phone: Ketones Ql (U) 15 mg/dL Abnormal Comprehens riri Internal Medicine Work Phone: Leukocyte esterase Test strip Ql (U) Small Normal Comprehensive Internal Medicine Work Phone: Nitrite Ql (U) Negative Normal Comprehens riri Internal Medicine Work Phone: pH (U) 5 [pH] Abnormal Comprehensive Internal Medicine Work Phone: Protein Ql (U) 30 mg/dL Normal Comprehens riri Internal Medicine Work Phone: Specific gravity Relative Density (U) 1.030 1 Abnormal Comprehensi ve Internal Medicine Work Phone: Urobilinogen mass/time (24H U) Normal Normal Comprehensive Internal Medicine Work Phone: Urinalysis, Office ([id number])on 02-04-2016 Glucose Test strip (U) [Mass/Vol] Negative Normal Comprehensive [facility]; [facility] Internal Medicine Work Phone: Nitrite Ql (U) Negative Normal Comprehens riri Internal Medicine; Comprehensive Internal Medicine Work Phone: Thyroid Stim Hormone (TSH)Or dered By: Teacher Counselor on 08-29-2014 Thyrotropin Qn 0.52 {uIU/mL} Normal 0.358-3.74 Compreh ensive Internal Medicine Work Phone: Comment on above: Test performed at:[facility] [address]ht[address] [place], [place] [id number] Vitamin D,25 HydroxyOrdered By: Teacher Counselor on 08-29-2014 Vitamin D,25 Hydroxy 122.0 ng/mL Normal Com prehensive Internal Medicine Work Phone: Comment on above: Vitamin D 25(OH) Sta tus Range Deficiency <20 ng/mL (50nmol/L) Insuffciency 20 - 30 ng/mL (50 - 75 nmol/L) Sufficiency 30 - 100 ng/mL (75 - 250 nmol/L) Toxicity >100 ng/mL (>250 nmol/L)Evidence suggests that patients undergoing fluorescein dyeangiography can retain small amounts of fluorescein in thebody for up to 48 to 72 hours post-treatment. In the casesof patients with renal insufficiency, retention could bemuch longer.Samples containing fluorescein can produce falsely elevatedvalues when tested with the Advia Centaur Vitamin D assay.With fluorescein interference, observed Vitamin D values canbe as high as >150 ng/mL (>375 nmol/L). Samples should beresubmitted post fluorescein clearance to ensure there is nointerference with Vitamin D test results. Test performed at:[facility] [address]bsxok[address] [place] [place] [address] CBC W/Diff, AutomatedOrdered By: Teacher Counselor on 05-30-2014 Absolute Neut 2.2 {X10_3/uL} Normal 2.0-7.7 Compreh ensive Internal Medicine Work Phone: Comment on above: Test performed at:[facility] [address]unaezhjm[address] [place] [address] Basophils/100 WBC (Bld) 1.1 % Abnormal 0-1 Comprehensive Internal Medicine Work Phone: Comment on above: Test performed at:[facility] [address] [place] [address] Eosinophils/100 WBC (Bld) 2.5 % Normal 0-5 Comprehensive Internal Medicine Work Phone: Comment on above: Test performed at:[facility] [address] [place] [address] Erythrocyte distribution width Ratio (RBC) 12.4 % Normal 11.6-14.6 Comprehensive [facility] Medicine Work Phone: Comment on above: Test performed at:[facility] [address]ngih[address] [place] [address] Hematocrit Volume Fraction (Bld) 42.0 % Normal 37-47 Comprehensive Internal Medicine Work Phone: Comment on above: Test performed at:[facility] [address] [place] [address] Hemoglobin mass conc (Bld) 14.0 g/dL Normal 12.0-15.0 Comprehensive [facility] Medicine Work Phone: Comment on above: Test performed at:[facility] [address]ffo[address] [place] [address] IM GRAN % 0.000 % Normal 0.0-0.9 Comprehensive [facility] Medicine Work Phone: Comment on above: IG% - Immature Granu locytes (promyelocytes, myelocytes andmetamyelocytes) > 1% indicates that a LEFT SHIFT is Present. Test performed at:[facility] [address]bthv[address] [place] [address] Lymphocytes #/vol (Bld) 1.66 {X10_3/ul} Normal 0.83-4.51 Comprehensive [facility] Work Phone: Comment on above: Test performed at:[facility] [address]qnmme[address] [place] [address] Lymphocytes/100 WBC (Bld) 37.6 % Normal 19-41 Comprehensive [facility] Medicine Work Phone: Comment on above: Test performed at:[facility] [address]dcvjxc[address] [place] [address] MCH Entitic mass (RBC) 30.2 pg Normal 27.0-32.0 Comprehensive Internal Medicine Work Phone: Comment on above: Test performed at:[facility] [address] [place] [address] MCHC mass conc (RBC) 33.3 {g/gl} Normal 32-36 Com prehensive Internal Medicine Work Phone: Comment on above: Test performed at:[facility] [address] [place] [address] MCV Entitic volume (RBC) 90.7 fL Normal 81-99 Comprehensive [facility] Medicine Work Phone: Comment on above: Test performed at:[facility] [address] [place] [address] Monocytes/100 WBC (Bld) 8.4 % Normal 0-10 Comprehensive [facility] Medicine Work Phone: Comment on above: Test performed at:[facility] [address] [place] [address] Neutrophils/100 WBC (Bld) 50.4 % Normal 47-70 [facility] Medicine Work Phone: Comment on above: Test performed at:[facility] [address] [place] [address] Platelet mean volume Entitic volume (Bld) 8.8 fL Normal 6.2-12.0 Comprehensi ve Internal Medicine Work Phone: Comment on above: Test performed at:[facility] [address] [place] [address] Platelets #/vol (Bld) 254 10*3/uL Normal 150-450 [facility] servicesehens[facility] Work Phone: Comment on above: Test performed at:[facility] [address] [place] [address] RBC #/vol (Bld) 4.63 {M/mm3} Normal 4.2-5.4 Compreh ensive Internal Medicine Work Phone: Comment on above: Test performed at:[facility] [address] [place] [address] RDW SD 40.2 fL Normal 35.1-43.9 Comprehensive [facility] Work Phone: Comment on above: Test performed at:[facility] [address] [place] [address] WBC #/vol (Bld) 4.4 10*3/uL Normal 4.4-11.0 Comprehe nsive Internal Medicine Work Phone: Comment on above: Test performed at:[facility] [address] [place], [place] [id number] Comprehensive Metabolic Prof ilOrdered By: Teacher Counselor on 05-30-2014 Comprehensive metabolic 2000 panel 138 mmol/L Normal 136-145 Comprehensi ve Internal Medicine Work Phone: Comment on above: Test performed at:[facility] [address] [place] [address] Comprehensive metabolic 2000 panel 3.7 mmol/L Normal 3.5-5.1 Comprehensi ve Internal Medicine Work Phone: Comment on above: Test performed at:[facility] [address] [place] [address] Comprehensive metabolic 2000 panel 104 mmol/L Normal 98-107 Comprehensi ve Internal Medicine Work Phone: Comment on above: Test performed at:[facility] [address] [place] [address] Comprehensive metabolic 2000 panel 28.0 mmol/L Normal 21.0-32.0 Comprehensi ve Internal Medicine Work Phone: Comment on above: Test performed at:[facility] [address] [place] [address] Comprehensive metabolic 2000 panel 6 1 Normal 5-15 Comprehensi ve Internal Medicine Work Phone: Comment on above: Test performed at:[facility] [address] [place], [place] [id number] Comprehensive metabolic 2000 panel 89 mg/dL Normal 70-110 Comprehensi ve Internal Medicine Work Phone: Comment on above: Test performed at:[facility] [address] [place] [address] Comprehensive metabolic 2000 panel 12 mg/dL Normal 7-18 Comprehensi ve Internal Medicine Work Phone: Comment on above: Test performed at:[facility] [address] [place] [address] Comprehensive metabolic 2000 panel 0.9 mg/dL Normal 0.6-1.0 Comprehensi ve Internal Medicine Work Phone: Comment on above: Test performed at:[facility] [address] [place] [address] Comprehensive metabolic 2000 panel 74 mL/min Normal Comprehensi ve Internal Medicine Work Phone: Comment on above: Test performed at:[facility] [address] [place] [address] Comprehensive metabolic 2000 panel 90 mL/min Normal Comprehensi ve Internal Medicine Work Phone: Comment on above: Test performed at:[facility] [address] [place] [address] Comprehensive metabolic 2000 panel 13.3 {RATIO} Normal 10-20 Comprehensi ve Internal Medicine Work Phone: Comment on above: Test performed at:[facility] [address] [place] [address] Comprehensive metabolic 2000 panel 7.9 g/dL Normal 6.4-8.2 Comprehensi ve Internal Medicine Work Phone: Comment on above: Test performed at:[facility] [address] [place] [address] Comprehensive metabolic 2000 panel 4.0 g/dL Normal 3.4-5.0 Comprehensi ve Internal Medicine Work Phone: Comment on above: Test performed at:[facility] [address] [place], [place] [id number] Comprehensive metabolic 2000 panel 3.9 g/dL Normal 2.7-4.2 Comprehensi ve Internal Medicine Work Phone: Comment on above: Test performed at:[facility] [address] [place] [address] Comprehensive metabolic 2000 panel 1.0 {RATIO} Normal 0.9-2.4 Comprehensi ve Internal Medicine Work Phone: Comment on above: Test performed at:[facility] [address] [place] [address] Comprehensive metabolic 2000 panel 8.8 mg/dL Normal 8.5-10.1 Comprehensi ve Internal Medicine Work Phone: Comment on above: Test performed at:[facility] [address] [place] [address] Comprehensive metabolic 2000 panel 17 U/L Normal 15-37 Comprehensi ve Internal Medicine Work Phone: Comment on above: Test performed at:[facility] [address] [place] [address] Comprehensive metabolic 2000 panel 49 U/L Abnormal 50-136 Comprehensi ve Internal Medicine Work Phone: Comment on above: Test performed at:[facility] [address] [place], [place] [id number] Comprehensive metabolic 2000 panel 15 U/L Normal 12-78 Comprehensi ve Internal Medicine Work Phone: Comment on above: Test performed at:[facility] [address] [place], [place] [id number] Comprehensive metabolic 2000 panel 0.70 mg/dL Normal 0.00-4.00 Comprehensi ve Internal Medicine Work Phone: Comment on above: Test performed at:[facility] [address] [place] [address] Lipid ProfileOrdered By: Brian tem Developmental Behavioral Physician on 05-30-2014 Cholesterol in HDL mass conc 43 mg/dL Normal Comprehensive [facility] Medicine Work Phone: Comment on above: Reference Range HDL <40 mg/dL Low HDL Cholesterol HDL >or= 60 mg/dL High HDL Cholesterol Test performed at:[facility] [address] [place] [address] Cholesterol in LDL mass conc 96 mg/dL Normal 0-130 Comprehensive [facility] Work Phone: Comment on above: Test performed at:[facility] [address] [place] [address] Cholesterol in VLDL mass conc 31 mg/dL Normal 5-40 Comprehensive [facility] Work Phone: Comment on above: Test performed at:[facility] [address] [place] [address] Cholesterol mass conc 170 mg/dL Normal Com prehensive Internal Medicine Work Phone: Comment on above: <200 mg/dL Desirable 200-240 mg/dL Borderline >240 mg/dL High Risk Test performed at:[facility] [address] [place] [address] Triglyceride mass conc 153 mg/dL Normal 0-199 [facility] Work Phone: Comment on above: Serum Triglycerides Reference Interval Normal <150 mg/dL Borderline high 150 - 199 mg/dL High 200 - 499 mg/dL Very High > or = 500 mg/dL Test performed at:[facility] [address] [place] [address] Thyroid Stim Hormone (TSH)Or dered By: Teacher Counselor on 05-30-2014 Thyrotropin Qn 0.88 {uIU/mL} Normal 0.358-3.74 Compreh ensive Internal Medicine Work Phone: Comment on above: Test performed at:[facility] [address] [place] [address] Vitamin D,25 HydroxyOrdered By: Teacher Counselor on 05-30-2014 Vitamin D,25 Hydroxy 21.7 ng/mL Normal Comp rehensive Internal Medicine Work Phone: Comment on above: Vitamin D 25(OH) Sta tus Range Deficiency <20 ng/mL (50nmol/L) Insuffciency 20 - 30 ng/mL (50 - 75 nmol/L) Sufficiency 30 - 100 ng/mL (75 - 250 nmol/L) Toxicity >100 ng/mL (>250 nmol/L) Test performed at:[facility] [address] [place], [place] [address] Vital Signs Date Time Vital Sign Value Performing Clinician Facility 10-11-2024 10:50-0400 Body height 175 cm Austin Still MD Work Phone: [facility] 10-11-2024 10:50-0400 Body height 175.26 cm Austin Still MD Work Phone: [facility] 10-11-2024 10:50-0400 Body mass index (BMI) [Ratio] 25.05 kg/m2 Austin Still MD Work Phone: [facility] 10-11-2024 10:50-0400 Body weight 77 kg Austin Still MD Work Phone: [facility] 10-11-2024 10:50-0400 Body weight 76.66 kg Austin Still MD Work Phone: [facility] 10-11-2024 10:50-0400 BP SITE #1 Austin Still MD Work Phone: [facility] 10-11-2024 10:50-0400 Diastolic blood pressure 83 mm[Hg] Austin Still MD Work Phone: [facility] 10-11-2024 10:50-0400 HGHTCHNVIS Austin Still MD Work Phone: [facility] 10-11-2024 10:50-0400 Systolic blood pressure 136 mm[Hg] Austin Still MD Work Phone: [facility] 10-11-2024 10:50-0400 VITALSDONE Austin Still MD Work Phone: [facility] 03-08-2024 17:10-0500 Body height 175.3 cm Janett Liu MD Work Phone: [facility] 03-08-2024 17:10-0500 Body mass index (BMI) [Ratio] 25.84 kg/m2 Janett Liu MD Work Phone: [facility] 03-08-2024 17:10-0500 Body weight 79.38 kg Janett Liu MD Work Phone: [facility] 03-08-2024 17:10-0500 Diastolic blood pressure 60 mm[Hg] Janett Liu MD Work Phone: [facility] 03-08-2024 17:10-0500 Systolic blood pressure 104 mm[Hg] Janett Liu MD Work Phone: [facility] 06-02-2023 14:27-0400 Body height 175.3 cm Bishop Carpio MD Work Phone: [facility] 06-02-2023 14:27-0400 Body weight 74.39 kg Bishop Carpio MD Work Phone: [facility] 06-02-2023 14:27-0400 Diastolic blood pressure 79 mm[Hg] Bishop Carpio MD Work Phone: [facility] 06-02-2023 14:27-0400 Heart rate 63 /min Bishop Carpio MD Work Phone: [facility] 06-02-2023 14:27-0400 Systolic blood pressure 145 mm[Hg] Bishop Carpio MD Work Phone: [facility] 05-19-2023 08:35-0400 Body height 175.26 cm JESSICA Bran Work Phone: [facility] 05-19-2023 08:35-0400 Body mass index (BMI) [Ratio] 25.1 kg/m2 [employer]ER[employer] Effie Bran Work Phone: [facility] 05-19-2023 08:35-0400 Body weight 77.11 kg ELECTRON [employer] 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[employer]ER[employer] Effie Bran Work Phone: [facility] 05-19-2023 08:35-0400 Diastolic blood pressure 78 mm[Hg] E[employer] G[employer] ASSEM[employer]ER[employer] Effie Bran Work Phone: [facility] 05-19-2023 08:35-0400 Systolic blood pressure 128 mm[Hg] [employer] ASSEM[employer]ER[employer] Effie Bran Work Phone: [facility] 03-03-2022 10:51-0500 Body height 175.26 cm Wily Kwon MA [facility]; [facility] Work Phone: 03-03-2022 10:51-0500 Body mass index (BMI) [Ratio] 24.37 kg/m2 Wily Kwon MA [facility]; [facility] Work Phone: 03-03-2022 10:51-0500 Body surface area Derived from formula 1.9 m2 Wily Kwon MA [facility]; [facility] Work Phone: 03-03-2022 10:51-0500 Body temperature 97.7 [degF] Wily Kwon MA [facility]; [facility] Work Phone: 03-03-2022 10:51-0500 Body weight 74.84 kg Wily Kwon MA [facility]; [facility] Work Phone: 03-03-2022 10:51-0500 Diastolic blood pressure 80 mm[Hg] Wily Kwon MA [facility]; [facility] Work Phone: Comment on above: Patient Position: Sitting; Cuff Location : Left Arm; Cuff Size: Standard 03-03-2022 10:51-0500 Heart rate 75 /min Wily Kwon MA [facility]; [facility] Work Phone: Comment on above: Pattern: Regular 03-03-2022 10:51-0500 Respiratory rate 17 /min Wily Kwon MA [facility]; [facility] Work Phone: Comment on above: Pattern: Unlabored 03-03-2022 10:51-0500 SaO2% (BldA) [Mass fraction] 99 % Wily Kwon MA [facility]; [facility] Work Phone: Comment on above: Room air 03-03-2022 10:51-0500 Systolic blood pressure 132 mm[Hg] Wily Kwon MA [facility]; [facility] Work Phone: Comment on above: Patient Position: Sitting; Cuff Location : Left Arm; Cuff Size: Standard 10-11-2020 14:34-0400 Body height 175.26 cm Rosetta Slarb MUSICAL PERFORMER [facility]; [facility] Work Phone: Comment on above: pt did not report 10-11-2020 14:34-0400 Body mass index (BMI) [Ratio] 23.63 kg/m2 Rosetta Slarb MUSICAL PERFORMER [facility]; [facility] Work Phone: Comment on above: pt did not report 10-11-2020 14:34-0400 Body surface area Derived from formula 1.88 m2 Rosetta Slarb MUSICAL PERFORMER [facility]; [facility] Work Phone: Comment on above: pt did not report 10-11-2020 14:34-0400 Body weight 72.58 kg Rosetta Slarb MUSICAL PERFORMER [facility]; [facility] Work Phone: Comment on above: pt did not report 10-02-2020 07:49-0400 Body height 175.26 cm Gisela Jeremiah MUSICAL PERFORMER [facility]; [facility] Work Phone: 10-02-2020 07:49-0400 Body mass index (BMI) [Ratio] 23.63 kg/m2 Gisela Jeremiah MUSICAL PERFORMER [facility]; [facility] Work Phone: 10-02-2020 07:49-0400 Body surface area Derived from formula 1.88 m2 Gisela Jeremiah MUSICAL PERFORMER [facility]; [facility] Work Phone: 10-02-2020 07:49-0400 Body temperature 97.3 [degF] Gisela Daniels LPN [facility]; [facility] Work Phone: Comment on above: Method: Temporal 10-02-2020 07:49-0400 Body weight 72.58 kg Gisela Daniels MUSICAL PERFORMER [facility]; [facility] Work Phone: 10-02-2020 07:49-0400 Diastolic blood pressure 86 mm[Hg] Gisela Daniels MUSICAL PERFORMER [facility]; [facility] Work Phone: Comment on above: Patient Position: Sitting; Cuff Location : Left Arm; Cuff Size: Standard 10-02-2020 07:49-0400 Heart rate 70 /min Gisela Daniels LPN [facility]; [facility] Work Phone: Comment on above: Pattern: Regular 10-02-2020 07:49-0400 Respiratory rate 16 /min Gisela Daniels LPN [facility]; [facility] Work Phone: Comment on above: Pattern: Unlabored 10-02-2020 07:49-0400 SaO2% (BldA) [Mass fraction] 98 % Gisela Daniels LPN [facility]; [facility] Work Phone: Comment on above: Room air 10-02-2020 07:49-0400 Systolic blood pressure 118 mm[Hg] Gisela Daniels LPN [facility]; [facility] Work Phone: Comment on above: Patient Position: Sitting; Cuff Location : Left Arm; Cuff Size: Standard 09-04-2020 08:27-0400 Body height 175.26 cm Nghia Jefferson MUSICAL PERFORMER [facility]; [facility] Work Phone: 09-04-2020 08:27-0400 Body mass index (BMI) [Ratio] 24.96 kg/m2 Nghia Jefferson [facility]; [facility] Work Phone: 09-04-2020 08:27-0400 Body surface area Derived from formula 1.92 m2 Nghia Jefferson LPN [facility]; [facility] Work Phone: 09-04-2020 08:27-0400 Body temperature 97.4 [degF] Nghia Jefferson LPN [facility]; [facility] Work Phone: Comment on above: Method: Infrared 09-04-2020 08:27-0400 Body weight 76.68 kg Nghia Jefferson LPN [facility]; [facility] Work Phone: 09-04-2020 08:27-0400 Diastolic blood pressure 70 mm[Hg] Nghia Jefferson LPN [facility]; [facility] Work Phone: Comment on above: Patient Position: Sitting; Cuff Location : Left Arm; Cuff Size: Standard 09-04-2020 08:27-0400 Heart rate 74 /min Nghia Jefferson LPN [facility]; [facility] Work Phone: Comment on above: Pattern: Regular 09-04-2020 08:27-0400 Respiratory rate 16 /min Nghai Jefferson LPN [facility]; [facility] Work Phone: Comment on above: Pattern: Unlabored 09-04-2020 08:27-0400 SaO2% (BldA) [Mass fraction] 99 % Nghia Jefferson LPN [facility]; [facility] Work Phone: Comment on above: Room air 09-04-2020 08:27-0400 Systolic blood pressure 122 mm[Hg] Nghia Jefferson LPN [facility]; [facility] Work Phone: Comment on above: Patient Position: Sitting; Cuff Location : Left Arm; Cuff Size: Standard 02-20-2020 09:02-0500 BMI (Body Mass Index) 24.96 kg/m2 Nghia Jefferson LPN [facility]; [facility] Work Phone: 02-20-2020 [id number] Body Temperature 98.6 [degF] Nghia Jefferson LPN [facility]; [facility] Work Phone: Comment on above: Method: Infrared 02-20-2020 09:02-0500 Body weight 76.68 kg Nghia Jefferson LPN [facility]; [facility] Work Phone: 02-20-2020 09:02-0500 BP Diastolic 78 mm[Hg] Nghia Jefferson LPN [facility]; [facility] Work Phone: Comment on above: Patient Position: Sitting; Cuff Location : Left Arm; Cuff Size: Standard 02-20-2020 09:02-0500 BP Systolic 126 mm[Hg] Nghia Jefferson LPN [facility]; [facility] Work Phone: Comment on above: Patient Position: Sitting; Cuff Location : Left Arm; Cuff Size: Standard 02-20-2020 09:02-0500 BSA (Body Surface Area) 1.92 m2 Nghia Jefferson LPN [facility]; [facility] Work Phone: 02-20-2020 09:02-0500 Height 175.26 cm Nghia Jefferson LPN [facility]; [facility] Work Phone: 02-20-2020 09:02-0500 Pulse (Heart Rate) 83 /min Nghia Jefferson LPN Comprehensiv e [facility]; [facility] Work Phone: Comment on above: Pattern: Regular 02-20-2020 09:02-0500 Pulse Oximetry 99 % Leidy Amador [facility]; [facility] Work Phone: Comment on above: Room air 02-20-2020 09:02-0500 Respiratory Rate 16 /min Nghia Jefferson LPN [facility]; [facility] Work Phone: Comment on above: Pattern: Unlabored 02-20-2020 09:02-0500 SaO2% (BldA) [Mass fraction] 99 % Nghia Jefferson LPN [facility]; [facility] Work Phone: Comment on above: Room air 04-29-2019 08:02-0400 BMI (Body Mass Index) 24.96 kg/m2 Nghia Jefferson LPN [facility]; [facility] Work Phone: 04-29-2019 08:02-0400 Body Temperature 97.8 [degF] Nghia Jefferson LPN [facility]; [facility] Work Phone: Comment on above: Method: Temporal 04-29-2019 08:02-0400 Body weight 76.68 kg Nghia Jefferson LPN [facility]; [facility] Work Phone: 04-29-2019 08:02-0400 BP Diastolic 76 mm[Hg] Nghia Jefferson LPN [facility]; [facility] Work Phone: Comment on above: Patient Position: Sitting; Cuff Location : Left Arm; Cuff Size: Standard 04-29-2019 08:02-0400 BP Systolic 120 mm[Hg] Nghia Jefferson LPN [facility]; [facility] Work Phone: Comment on above: Patient Position: Sitting; Cuff Location : Left Arm; Cuff Size: Standard 04-29-2019 08:02-0400 BSA (Body Surface Area) 1.92 m2 Nghia Jefferson LPN [facility]; [facility] Work Phone: 04-29-2019 08:02-0400 Height 175.26 cm Nghia Jefferson LPN [facility]; [facility] Work Phone: 04-29-2019 08:02-0400 Pulse (Heart Rate) 94 /min Nghia Jefferson LPN [facility]; [facility] Work Phone: Comment on above: Pattern: Regular 04-29-2019 08:02-0400 Pulse Oximetry 99 % Leidy Amador [facility]; [facility] Work Phone: Comment on above: Room air 04-29-2019 08:02-0400 Respiratory Rate 16 /min Nghia Jefferson LPN [facility]; [facility] Work Phone: Comment on above: Pattern: Unlabored 04-29-2019 08:02-0400 SaO2% (BldA) [Mass fraction] 99 % Nghia Jefferson LPN [facility]; [facility] Work Phone: Comment on above: Room air 04-15-2019 11:10-0500 BMI (Body Mass Index) 25.25 kg/m2 Nghia Jefferson LPN [facility]; [facility] Work Phone: 04-15-2019 11:10-0500 Body Temperature 97.7 [degF] Nghia Jefferson LPN [facility]; [facility] Work Phone: Comment on above: Method: Temporal 04-15-2019 11:10-0500 Body weight 77.57 kg Nghia Jefferson LPN [facility]; [facility] Work Phone: 04-15-2019 11:10-0500 BP Diastolic 86 mm[Hg] Nghia Jefferson LPN [facility]; [facility] Work Phone: Comment on above: Patient Position: Sitting; Cuff Location : Left Arm; Cuff Size: Standard 04-15-2019 11:10-0500 BP Systolic 134 mm[Hg] Nghia Jefferson LPN [facility]; [facility] Work Phone: Comment on above: Patient Position: Sitting; Cuff Location : Left Arm; Cuff Size: Standard 04-15-2019 11:10-0500 BSA (Body Surface Area) 1.93 m2 Nghia Jefferson LPN [facility]; [facility] Work Phone: 04-15-2019 11:10-0500 Height 175.26 cm Nghia Jefferson LPN [facility]; [facility] Work Phone: 04-15-2019 11:10-0500 Pulse (Heart Rate) 101 /min Nghia Jefferson LPN [facility]; [facility] Work Phone: Comment on above: Pattern: Regular 04-15-2019 11:10-0500 Pulse Oximetry 98 % Leidy Amador [facility]; [facility] Work Phone: Comment on above: Room air 04-15-2019 11:10-0500 Respiratory Rate 16 /min Nghia Jefferson LPN [facility]; [facility] Work Phone: Comment on above: Pattern: Unlabored 04-15-2019 11:10-0500 SaO2% (BldA) [Mass fraction] 98 % Nghia Jefferson LPN [facility]; [facility] Work Phone: Comment on above: Room air 04-12-2018 09:24-0500 BMI (Body Mass Index) 21.3 kg/m2 Sintia Mckenzie CMA [facility] Work Phone: 04-12-2018 09:24-0500 Body Temperature 98.1 [degF] Sintia Mckenzie CMA [facility] Work Phone: Comment on above: Method: Temporal 04-12-2018 09:24-0500 Body weight 65.43 kg Sintia Mckenzie CMA [facility] Work Phone: 04-12-2018 09:24-0500 BP Diastolic 72 mm[Hg] Sintia Mckenzie CMA [facility] Work Phone: Comment on above: Patient Position: Sitting; Cuff Location : Left Arm; Cuff Size: Standard 04-12-2018 09:24-0500 BP Systolic 108 mm[Hg] Sintia Mckenzie CMA [facility] Work Phone: Comment on above: Patient Position: Sitting; Cuff Location : Left Arm; Cuff Size: Standard 04-12-2018 09:24-0500 BSA (Body Surface Area) 1.8 m2 Sintia Mckenzie LEAD SOFTWARE TEST ENGINEER [facility] Work Phone: 04-12-2018 09:24-0500 Height 175.26 cm Sintia Mckenzie CMA [facility] Work Phone: 04-12-2018 09:24-0500 Pulse (Heart Rate) 86 /min Sintia Mckenzie CMA Comprehens riri [facility] Medicine Work Phone: Comment on above: Pattern: Regular 04-12-2018 09:24-0500 Pulse Oximetry 97 % Leidy Amador [facility] Internal Medicine Work Phone: Comment on above: Room air 04-12-2018 09:24-0500 Respiratory Rate 16 /min Sintia Mckenzie CMA Comprehensiv e [facility] Medicine Work Phone: Comment on above: Pattern: Unlabored 04-12-2018 09:24-0500 SaO2% (BldA) [Mass fraction] 97 % Sintia Mckenzie LEAD SOFTWARE TEST ENGINEER [facility]; [facility] Work Phone: Comment on above: Room air 04-12-2018 09:24-0500 Weight 65.43 kg Leidy Ciesa [facility] Work Phone: 07-24-2017 08:18-0400 BMI (Body Mass Index) 21.3 kg/m2 Rosetta Slarb MUSICAL PERFORMER [facility] Work Phone: 07-24-2017 08:18-0400 Body Temperature 97.6 [degF] Rosetta Haroldorb MUSICAL PERFORMER [facility] Work Phone: 07-24-2017 08:18-0400 Body weight 65.43 kg Rosetta Slarb MUSICAL PERFORMER [facility] Work Phone: 07-24-2017 08:18-0400 BP Diastolic 82 mm[Hg] Rosetta Slarb MUSICAL PERFORMER [facility] Work Phone: Comment on above: Patient Position: Sitting; Cuff Location : Left Arm; Cuff Size: Standard 07-24-2017 08:18-0400 BP Systolic 136 mm[Hg] Rosetta Slarb MUSICAL PERFORMER [facility] Work Phone: Comment on above: Patient Position: Sitting; Cuff Location : Left Arm; Cuff Size: Standard 07-24-2017 08:18-0400 BSA (Body Surface Area) 1.8 m2 Rosetta Slarb MUSICAL PERFORMER [facility] Work Phone: 07-24-2017 08:18-0400 Height 175.26 cm Rosetta Zarcorb MUSICAL PERFORMER [facility] Work Phone: 07-24-2017 08:18-0400 Pulse (Heart Rate) 81 /min Rosetta Millan MUSICAL PERFORMER [facility] Work Phone: Comment on above: Pattern: Regular 07-24-2017 08:18-0400 Pulse Oximetry 98 % Leidy [facility] Work Phone: Comment on above: Room air 07-24-2017 08:18-0400 Respiratory Rate 16 /min Rosetta Millan MUSICAL PERFORMER [facility] Work Phone: Comment on above: Pattern: Unlabored 07-24-2017 08:18-0400 SaO2% (BldA) [Mass fraction] 98 % Rosetta Slarb MUSICAL PERFORMER [facility]; [facility] Work Phone: Comment on above: Room air 07-24-2017 08:18-0400 Weight 65.43 kg Leidy Amador [facility] Work Phone: 02-17-2017 11:01-0500 BMI (Body Mass Index) 21.3 kg/m2 hCantal Motley RN [facility] Work Phone: 02-17-2017 11:01-0500 Body Temperature 97.4 [degF] Chantal Motley RN [facility] Work Phone: Comment on above: Method: Temporal 02-17-2017 11:01-0500 Body weight 65.43 kg Chantal Motley RN [facility] Work Phone: 02-17-2017 11:01-0500 BP Diastolic 82 mm[Hg] Chantal Motley RN [facility] Work Phone: Comment on above: Patient Position: Sitting; Cuff Location : Left Arm; Cuff Size: Large 02-17-2017 11:01-0500 BP Systolic 124 mm[Hg] Chantal Motley RN [facility] Work Phone: Comment on above: Patient Position: Sitting; Cuff Location : Left Arm; Cuff Size: Large 02-17-2017 11:01-0500 BSA (Body Surface Area) 1.8 m2 Chantal Motley RN [facility] Work Phone: 02-17-2017 11:01-0500 Height 175.26 cm Chantal Motley RN [facility] Work Phone: 02-17-2017 11:01-0500 Pulse (Heart Rate) 74 /min Chantal Motley RN Comprehens r[facility] Medicine Work Phone: Comment on above: Pattern: Regular 02-17-2017 11:01-0500 Pulse Oximetry 98 % Leidy Amador [facility] Work Phone: Comment on above: Room air 02-17-2017 11:01-0500 Respiratory Rate 18 /min Chantal Motley RN [facility] Work Phone: Comment on above: Pattern: Unlabored 02-17-2017 11:01-0500 SaO2% (BldA) [Mass fraction] 98 % Chantal Motley RN [facility]; [facility] Work Phone: Comment on above: Room air 02-17-2017 11:010500 Weight 65.43 kg Leidy Amador [facility] Internal [facility] Work Phone: 07-04-2016 10:24-0400 BMI (Body Mass Index) 21.3 kg/m2 Leidy Amador [facility] Work Phone: Comment on above: orthossittin/82 P 82standin/ 83 P 85 07-04-2016 10:24-0400 Body Temperature 97.6 [degF] Leidy Amador [facility] Work Phone: Comment on above: orthossittin/82 P 82standin/ 83 P 85 07-04-2016 10:240400 Body weight 65.43 kg Leidy Amador [facility] Work Phone: Comment on above: orthossittin/82 P 82standin/ 83 P 85 07-04-2016 10:24-0400 BP Diastolic 78 mm[Hg] Leidy Amador [facility] Work Phone: Comment on above: Patient Position: Sitting; Cuff Location : Left Arm; Cuff Size: Standard orthossittin/8 2 P 82standin/83 P 85 07-04-2016 10:24-0400 BP Systolic 116 mm[Hg] Leidy Amador [facility] Work Phone: Comment on above: Patient Position: Sitting; Cuff Location : Left Arm; Cuff Size: Standard orthossittin/8 2 P 82standin/83 P 85 07-04-2016 10:24-0400 BSA (Body Surface Area) 1.8 m2 Leidy Amador [facility] Internal Medicine Work Phone: Comment on above: orthossittin/82 P 82standin/ 83 P 85 07-04-2016 10:24-0400 Height 175.26 cm Leidy Amador [facility] Internal [facility] Work Phone: Comment on above: orthossittin/82 P 82standin/ 83 P 85 07-04-2016 10:24-0400 Pulse (Heart Rate) 60 /min Leidy Amador [facility] Work Phone: Comment on above: Pattern: Regular orthossittin/8 2 P 82standin/83 P 85 07-04-2016 10:24-0400 Pulse Oximetry 100 % Leidy Amador [facility] Work Phone: Comment on above: Room air orthossittin/8 2 P 82standin/83 P 85 07-04-2016 10:24-0400 Respiratory Rate 17 /min Leidy Amador [facility] Internal [facility] Work Phone: Comment on above: Pattern: Unlabored orthossittin/8 2 P 82standin/83 P 85 07-04-2016 10:24-0400 SaO2% (BldA) [Mass fraction] 100 % Leidy Amador [facility] Work Phone: [facility]; [facility] Work Phone: Comment on above: Room air orthossittin/8 2 P 82standin/83 P 85 07-04-2016 10:24-0400 Weight 65.43 kg Leidy Amador [facility] Internal [facility] Work Phone: Comment on above: orthossittin/82 P 82standin/ 83 P 85 02-04-2016 11:25-0500 BMI (Body Mass Index) 23.92 kg/m2 Rosetta Yana [facility] Work Phone: 02-04-2016 11:25-0500 Body Temperature 98.2 [degF] Rosetta Haroldorb MUSICAL PERFORMER [facility] Work Phone: 02-04-2016 11:25-0500 Body weight 73.48 kg Rosetta Haroldorb MUSICAL PERFORMER [facility] Work Phone: 02-04-2016 11:25-0500 BP Diastolic 76 mm[Hg] Rosetta Slarb MUSICAL PERFORMER [facility] Work Phone: Comment on above: Patient Position: Sitting; Cuff Location : Left Arm; Cuff Size: Standard 02-04-2016 11:25-0500 BP Systolic 118 mm[Hg] Rosetta Slarb MUSICAL PERFORMER [facility] Work Phone: Comment on above: Patient Position: Sitting; Cuff Location : Left Arm; Cuff Size: Standard 02-04-2016 11:25-0500 BSA (Body Surface Area) 1.89 m2 Rosetta Millan MUSICAL PERFORMER [facility] Work Phone: 02-04-2016 11:25-0500 Height 175.26 cm Rosetta Haroldorb MUSICAL PERFORMER [facility] Work Phone: 02-04-2016 11:25-0500 Pulse (Heart Rate) 72 /min Rosetta Millan MUSICAL PERFORMER [facility] Work Phone: Comment on above: Pattern: Regular 02-04-2016 11:25-0500 Pulse Oximetry 98 % Leidy Amador [facility] Work Phone: Comment on above: Room air 02-04-2016 11:25-0500 Respiratory Rate 18 /min Rosetta Zarcorb MUSICAL PERFORMER [facility] Work Phone: Comment on above: Pattern: Unlabored 02-04-2016 11:25-0500 SaO2% (BldA) [Mass fraction] 98 % Rosetta Slarb MUSICAL PERFORMER [facility]; [facility] Work Phone: Comment on above: Room air 02-04-2016 11:25-0500 Weight 73.48 kg Leidy Amador [facility] Work Phone: 05-01-2015 08:59-0400 Body Temperature 97.6 [degF] Rosetta Slarb MUSICAL PERFORMER [facility] Work Phone: 05-01-2015 08:59-0400 Body weight 73.65 kg Rosetta Zarcorb MUSICAL PERFORMER [facility] Work Phone: 05-01-2015 08:59-0400 BP Diastolic 82 mm[Hg] Rosetta Slarb MUSICAL PERFORMER [facility] Work Phone: Comment on above: Patient Position: Sitting; Cuff Location : Left Arm; Cuff Size: Standard 05-01-2015 08:59-0400 BP Systolic 126 mm[Hg] Rosetta Slarb MUSICAL PERFORMER [facility] Work Phone: Comment on above: Patient Position: Sitting; Cuff Location : Left Arm; Cuff Size: Standard 05-01-2015 08:59-0400 Pulse (Heart Rate) 80 /min Rosetta Slarb MUSICAL PERFORMER [facility] Work Phone: Comment on above: Pattern: Regular 05-01-2015 08:59-0400 Pulse Oximetry 98 % Leidy Amador [facility] Work Phone: Comment on above: Room air 05-01-2015 08:59-0400 Respiratory Rate 17 /min Rosetta Slarb MUSICAL PERFORMER [facility] Work Phone: Comment on above: Pattern: Unlabored 05-01-2015 08:59-0400 SaO2% (BldA) [Mass fraction] 98 % Rosetta Slarb MUSICAL PERFORMER [facility]; [facility] Work Phone: Comment on above: Room air 05-01-2015 08:59-0400 Weight 73.65 kg Leidy Amador [facility] Work Phone: 09-05-2014 08:43-0400 Body Temperature 98 [degF] Rosetta Slarb MUSICAL PERFORMER [facility] Work Phone: 09-05-2014 08:43-0400 Body weight 71.9 kg Rosetta Slarb MUSICAL PERFORMER [facility] Work Phone: 09-05-2014 08:43-0400 BP Diastolic 72 mm[Hg] Rosetta Slarb MUSICAL PERFORMER [facility] Work Phone: Comment on above: Patient Position: Sitting; Cuff Location : Left Arm; Cuff Size: Standard 09-05-2014 08:43-0400 BP Systolic 116 mm[Hg] Rosetta Slarb MUSICAL PERFORMER [facility] Work Phone: Comment on above: Patient Position: Sitting; Cuff Location : Left Arm; Cuff Size: Standard 09-05-2014 08:43-0400 Pulse (Heart Rate) 83 /min Rosetta Slarb MUSICAL PERFORMER [facility] Work Phone: Comment on above: Pattern: Regular 09-05-2014 08:43-0400 Pulse Oximetry 98 % Leidy Amador [facility] Work Phone: Comment on above: Room air 09-05-2014 08:43-0400 Respiratory Rate 16 /min Rosetta Millan MUSICAL PERFORMER [facility] Work Phone: Comment on above: Pattern: Unlabored 09-05-2014 08:43-0400 SaO2% (BldA) [Mass fraction] 98 % Rosetta Millan MUSICAL PERFORMER [facility]; [facility] Work Phone: Comment on above: Room air 09-05-2014 08:43-0400 Weight 71.9 kg Leidy Amador [facility] Work Phone: 07-07-2014 09:11-0400 Body Temperature 98.8 [degF] Rosetta Millan MUSICAL PERFORMER [facility] Work Phone: 07-07-2014 09:11-0400 Body weight 71.44 kg Rosetta Zarcoóscar TAYLORN [facility] Work Phone: 07-07-2014 09:11-0400 BP Diastolic 84 mm[Hg] Rosetta Zarcorb MUSICAL PERFORMER [facility] Work Phone: Comment on above: Patient Position: Sitting; Cuff Location : Left Arm; Cuff Size: Standard 07-07-2014 09:11-0400 BP Systolic 126 mm[Hg] Rosetta Millan MUSICAL PERFORMER [facility] Work Phone: Comment on above: Patient Position: Sitting; Cuff Location : Left Arm; Cuff Size: Standard 07-07-2014 09:11-0400 Pulse (Heart Rate) 83 /min Rosetta Millan MUSICAL PERFORMER [facility] Work Phone: Comment on above: Pattern: Regular 07-07-2014 09:11-0400 Pulse Oximetry 99 % Leidy Amador [facility] Work Phone: Comment on above: Room air 07-07-2014 09:11-0400 Respiratory Rate 18 /min Rosetta Millan MUSICAL PERFORMER [facility] Work Phone: Comment on above: Pattern: Unlabored 07-07-2014 09:11-0400 SaO2% (BldA) [Mass fraction] 99 % Rosetta Zarcoóscar KOHLER [facility]; [facility] Work Phone: Comment on above: Room air 07-07-2014 09:11-0400 Weight 71.44 kg Leidy Amador [facility] Work Phone: 06-06-2014 08:56-0400 Body Temperature 97.9 [degF] Leidy Ruanocrescencio [facility] Work Phone: Comment on above: Method: Oral 06-06-2014 08:56-0400 Body weight 71.39 kg Leidy Amador [facility] Work Phone: 06-06-2014 08:56-0400 BP Diastolic 68 mm[Hg] Leidy Amador [facility] Work Phone: Comment on above: Patient Position: Sitting; Cuff Location : Left Arm; Cuff Size: Standard 06-06-2014 08:56-0400 BP Systolic 116 mm[Hg] Leidy Amador [facility] Work Phone: Comment on above: Patient Position: Sitting; Cuff Location : Left Arm; Cuff Size: Standard 06-06-2014 08:56-0400 Pulse (Heart Rate) 74 /min Leidy Amador [facility] Work Phone: Comment on above: Pattern: Regular 06-06-2014 08:56-0400 Pulse Oximetry 99 % Leidy Amador [facility] Work Phone: Comment on above: Room air 06-06-2014 08:56-0400 SaO2% (BldA) [Mass fraction] 99 % Leidy Amador [facility] Work Phone: [facility]; [facility] Work Phone: Comment on above: Room air 06-06-2014 08:56-0400 Weight 71.39 kg Leidy Amador [facility] Work Phone: 05-26-2014 09:45-0400 Body Temperature 98.3 [degF] Leidy Amador [facility] Work Phone: Comment on above: Method: Oral 05-26-2014 09:45-0400 Body weight 71.39 kg Leidy Amador [facility] Work Phone: 05-26-2014 09:45-0400 BP Diastolic 76 mm[Hg] Leidy Amador [facility] Work Phone: Comment on above: Patient Position: Sitting; Cuff Location : Left Arm; Cuff Size: Standard 05-26-2014 09:45-0400 BP Systolic 112 mm[Hg] Leidy Amador [facility] Work Phone: Comment on above: Patient Position: Sitting; Cuff Location : Left Arm; Cuff Size: Standard 05-26-2014 09:45-0400 Pulse (Heart Rate) 64 /min Leidy Amador [facility] Work Phone: Comment on above: Pattern: Regular 05-26-2014 09:45-0400 Pulse Oximetry 99 % Leidy Amador [facility] Work Phone: Comment on above: Room air 05-26-2014 09:45-0400 Respiratory Rate 15 /min Leidy Amador [facility] Work Phone: 05-26-2014 09:45-0400 SaO2% (BldA) [Mass fraction] 99 % Leidy Amador FOREIGN SERVICE OFFICER Work Phone: [facility]; [facility] Work Phone: Comment on above: Room air 05-26-2014 09:45-0400 Weight 71.39 kg Leidy Amador [facility] Work Phone: Encounters Encounter Date Encounter Type Care Provider Facility Start: 12-29-2024 End: 12-29-2024 ambulatory Loreto Story Facility:[facility] Start: 12-05-2024 End: 12-05-[address] Loreto Story [place] [facility] Work Phone: Start: 12-05-2024 End: 12-05-2024 ambulatory Effie LOPEZ Work Phone: -[facility] Start: 11-07-2024 End: 11-07-[address] Loreto Story [place] -[facility] Work Phone: Start: 11-07-2024 End: 11-07-2024 ambulatory Effie Bran ELECTRON GUN ASSEMBLER-C Work Phone: [facility] Start: 10-11-2024 In-person encounter Austin fernandez MD Work Phone: [facility] Work Phone: Start: 10-11-2024 Visit out of hours Austin hayes MD Work Phone: [facility] Work Phone: Start: 10-10-2024 End: 10-10-[address] Loreto Story [place] [facility] Work Phone: Start: 10-10-2024 End: 10-10-2024 ambulatory Effie Bran ELECTRON GUN ASSEMBLER-C Work Phone: [facility] Start: 06-22-2024 End: 06-22-2024 Clinisync Result Encounter Janett Liu MD Work Phone: [facility] External Department Unsolicited Start: 06-22-2024 End: 06-22-2024 Clinisync Result Encounter Janett Liu MD Work Phone: [facility] External Department Unsolicited Start: 06-22-2024 ambulatory EFFIE BRAN Facility :[facility] Start: 06-22-2024 End: 06-22-2024 Subsequent hospital visit by physician Diagnostic Mammo [facility] 1 [facility] MAMMO RE[facility]LE[facility] Comment on above: Other abnormal and i nconclusive findings on diagnostic imaging of breast [R92.8] Start: 05-16-2024 End: 05-16-2024 ambulatory Effie Shant Facility:[facility] Start: 05-06-2024 ambulatory EFFIE SHANT Facility :[facility] Start: 05-06-2024 End: 05-06-2024 Subsequent hospital visit by physician Screen Mammo [place] [facility]LE[facility] Comment on above: screening mamm Start: 03-08-2024 End: 03-08-2024 Patient encounter status Janett Liu MD Work Phone: [facility] Work Phone: Start: 03-08-2024 End: 03-08-2024 Periodic preventive med est patient 40-64yrs Janett Liu MD Work Phone: [facility] Comment on above: Encounter for gyneco logical examination without abnormal finding (Primary Dx); Screening mammogram, encounter for Start: 03-08-2024 End: 03-08-2024 ambulatory JANETT LIU Not Available Start: 03-08-2024 End: 03-08-2024 Bamboo flowsheet Janett Liu MD Work Phone: [facility] Start: 03-08-2024 End: 03-08-2024 Bamboo flowsheet Janett Liu MD Work Phone: [facility] Start: 02-01-2024 End: 02-01-2024 ambulatory Loreto Duran Facility:[facility] Start: 06-16-2023 End: 06-16-2023 ambulatory [facility] Facility:[facility] Start: 06-16-2023 End: 06-16-2023 Patient encounter procedure Bishop Carpio MD Work Phone: General Surgery Comment on above: Parathyroid abnormal ity (HCC) (Primary Dx) Start: 06-11-2023 End: 06-11-2023 ambulatory [facility] Facility:[facility] Start: 06-11-2023 End: 06-11-2023 ambulatory [facility] Facility:[facility] Start: 06-11-2023 End: 06-11-2023 Subsequent hospital visit by physician [employer] Work Phone: Molecular Imaging Start: 06-11-2023 End: 06-11-2023 Subsequent hospital visit by physician [facility] Start: 06-04-2023 End: 06-05-2023 ambulatory [facility] Facility:[facility] Start: 06-02-2023 End: 06-02-2023 ambulatory [facility] Facility:[facility] Start: 06-02-2023 End: 06-02-2023 Patient encounter procedure Bishop Carpio MD Work Phone: General Surgery Comment on above: Parathyroid abnormal ity (HCC) (Primary Dx) Start: 05-22-2023 End: 05-22-2023 ambulatory ELECTRON GUN ASSEMBLER-Gwyn Bran Work Phone: [facility] Work Phone: Start: 05-22-2023 End: 05-22-2023 Patient encounter procedure ELECTRON GUN ASSEMBLER-Gwyn Bran Work Phone: [facility] Work Phone: Start: 05-19-2023 End: 05-19-2023 Patient encounter procedure ELECTRON GUN ASSEMBLER-Gwyn Bran Work Phone: [facility] Work Phone: Start: 05-18-2023 Telephone encounter Nurse Karlie [facility] Work Phone: General Surgery Comment on above: Request for Medical Records Start: 05-26-2022 Documentation procedure Mammog jyotsna Coordinator [facility] Start: 05-26-2022 Letter encounter Mammography Coordinator [facility] [facility]CILL[facility] ARE[facility] NOT LISTED Start: 05-23-2022 End: 05-23-2022 Subsequent hospital visit by physician Screen Mammo [place] [facility] Comment on above: screening Start: 03-06-2022 End: 03-06-2022 ambulatory [facility] Work Phone: Start: 03-06-2022 End: 03-06-2022 Patient encounter procedure [facility], [facility] Start: 03-03-2022 ambulatory Effie Bran CNP Comp rehensive Internal Med Start: 03-03-2022 End: 03-03-2022 Office outpatient visit 15 minutes Effie Bran CNP Work Phone: [facility] Start: 10-12-2020 End: 10-12-2020 Office outpatient visit 15 minutes Leidy Amador CNP Work Phone: [facility] Start: 10-02-2020 End: 10-02-2020 Office outpatient visit 25 minutes Leidy Ciesa FOREIGN SERVICE OFFICER Work Phone: [facility] Start: 09-04-2020 End: 09-04-2020 Office outpatient visit 10 minutes Leidy Amador FOREIGN SERVICE OFFICER Work Phone: [facility] Start: 02-20-2020 End: 02-20-2020 Office outpatient visit 15 minutes Leidy Ruanocastillocrescencio [facility] Start: 08-03-2019 End: 08-03-2019 Annotation/Addendum Leidy Ruanocastillocrescencio Comprehensive Certified Green Building Engineer al Medicine Start: 04-29-2019 End: 04-29-2019 Office outpatient visit 15 minutes Leidy Amador [facility] Start: 04-15-2019 End: 04-15-2019 Office outpatient visit 25 minutes Leidy Seymour Internal Medicine Start: 12-22-2018 End: 12-22-2018 Annotation/Addendum Leidy Ruanocastillocrescencio [facility] Certified Green Building Engineer al Medicine Start: 04-12-2018 End: 04-12-2018 Office outpatient visit 15 minutes Leidy Amador [facility] Start: 07-30-2017 End: 07-30-2017 Annotation/Addendum Leidy Ironcrescencio [facility] Certified Green Building Engineer al Medicine Start: 07-24-2017 End: 07-24-2017 Office outpatient visit 10 minutes Leidy Amador [facility] Start: 02-17-2017 End: 02-17-2017 Office outpatient visit 15 minutes Leidy Amador [facility] Start: 07-08-2016 End: 07-08-2016 Annotation/Addendum Leidy Ironcrescencio [facility] Certified Green Building Engineer al Medicine Start: 07-04-2016 End: 07-04-2016 Office outpatient visit 15 minutes Leidy Amador [facility] Start: 02-04-2016 End: 02-04-2016 Office outpatient visit 10 minutes Leidy Amador [facility] Start: 05-01-2015 End: 05-01-2015 Office outpatient visit 15 minutes Leidy Amador [facility] Start: 09-05-2014 End: 09-05-2014 Office outpatient visit 25 minutes Leidy Seymour Internal Medicine Start: 08-30-2014 End: 08-30-2014 Lab Order Leidy Amador [facility] Certified Green Building Engineer al Medicine Start: 07-17-2014 End: 07-17-2014 Lab Order Leidy Amador [facility] Certified Green Building Engineer al Medicine Start: 07-07-2014 End: 07-07-2014 Office outpatient visit 15 minutes Leidy Amador [facility] Start: 06-13-2014 End: 06-13-2014 Phone Encounter Leidy Amador [facility] Certified Green Building Engineer al Medicine Start: 06-06-2014 End: 06-06-2014 Office outpatient visit 15 minutes Leidy Amador [facility] Start: 05-26-2014 End: 05-26-2014 Office outpatient new 45 minutes Leidy Amador [facility] Start: 05-26-2014 End: 05-26-2014 Physical examination Effie Bran ALONDRA Work Phone: [facility] Physical examination Rosetta Millan MUSICAL PERFORMER Com prehensive Internal Medicine; [facility] Work Phone: Physical examination Wily Kwon MA Compr ehensive Internal Medicine; [facility] Work Phone: Procedures Date Procedure Procedure Detail Performing Clinician Start: 10-11-2024 Blood pressure withi n normal parameters - no follow-up required Austin Still MD Work Phone: Start: 10-11-2024 BMI documented as ab ove normal parameters - follow-up documented Austin Still MD Work Phone: Start: 10-11-2024 Current tobacco non-user cad cap copd pv dm Austin Still MD Work Phone: Start: 10-11-2024 Documentation of current medications Austin Still MD Work Phone: Start: 10-11-2024 Pain assessment documented as positive - follow-up documented Austin Still MD Work Phone: Start: 10-11-2024 Injection - betamethasone acetate 3 mg and betamethasone sodium phosphate 3 mg Austin Still MD Work Phone: Start: 10-11-2024 Injection single/gastroenterology technician trigger point 1/2 muscles Austin Still MD Work Phone: Start: 06-22-2024 DAVID US BREAST LTD LT Ba crispin Liu MD Work Phone: Start: 06-22-2024 Us breast uni real t abraham with image limited Janett Liu MD Work Phone: Start: 06-22-2024 Digital breast tomosynthesis unilateral Janett Liu MD Work Phone: Start: 06-22-2024 [facility] Jovani Liu MD Work Phone: Start: 05-06-2024 Mammography Janett Liu MD Work Phone: Start: 03-09-2024 Microscopic observat ion [Identifier] in Cervix by Cyto stain Janett Liu MD Work Phone: Start: 05-22-2023 US scan of thyroid [employer] Effie Bran Work Phone: Start: 05-28-2022 Mammography Janett Liu MD Work Phone: Start: 05-23-2022 Mammography Mammograph y Coordinator Start: 03-06-2022 US scan of thyroid Start: 05-02-2021 Mammography Screen Bat h Start: 04-29-2021 End: 04-30-2021 Chiropractic Report Comments: See Note; NOTES: [facility] [address] [place] [id number] OFFICE VISIT Date of Service: 04/29/21 MR#: [id number] Acct: [id number] Name: DEB OSEI Rep #: [id number] : 1975 Provider: CARLOS Hansen Age/Sex: 45/F Location: [facility] Status: Signed Intake Intake Visit Reasons: back pain Chief Complaint: Left Neck Upper Back Qa Reviewer Required: No Accompanied by: Self Is patient in pain?: Yes Allergies No Known Allergies Allergy (Verified 06/06/19 13:28) PFSH Medical History Chronic headaches Multinodular goiter Weight gain Surgical History History of appendectomy History of Hx of hernia repair Family History Grandmother Colon cancer Diabetes Heart disease Sister Melanoma skin cancer Brother Thyroid disorder Grandfather Heart disease Other Depression Hypertension Myocardial infarction HPI back pain Chief Complaint: Left Neck Left Shoulder Visit Number: 2 Details: Details: Deb Osei 45 F is here today for upper back and left neck pain. She stated left neck upper back pain is 4/10, achy constant and her neck left side crackling and tightness. She said she is having shooting pain neck to her upper back. Patient stated the pain is aggravated by driving. She said she gets relief for chiropractic adjustment and treatment. Her low back pain is mild with stiffness on occasion. She stated no new injury. Denies, numbness, tingling and radiculopathy. Location: Left side neck / Left upper back Duration: constant Aggravating or associated factors: driving Relieving factors: Chiro, Ibprofen, heat and ice Pain Quality: aching, sharp and other (tight) Current Sensation: snapping/popping and other ( ) Exam Musc General: Yes normal posture, normal gait and joint tenderness; No decreased range of motion Cervical Spine: Yes loss of normal cervical lordosis, Yes cervical muscular tenderness bilateral lower , Yes cervical spasm left greater than right lower trapezius and paracervical muscles and Yes misalignment misalignment: C5, C6 and C7 Thoracic/Lumber: Yes thoracic and lumbar spine normal to inspection, Yes Lasegue's sign negative, Yes paraspinal tenderness (slightly improved) bilaterally in the lower lumbar and on the left greater than right (upper/mid thoracic), Yes thoraco-lumbar spasm bilaterally (QL) in the lower lumbar and on the left greater than right (trap, levator: trigger points) and Yes misalignment T3, T4, T5, T6, L4, L5 and LIL Sacroiliac joints: on the left tender to palpation Office Procedures Procedures - Chiropractic Procedures Manipulation: Cervical C6, Lumbar L4, Thoracic T3 and T6 and Pelvis LIL Manipulation: 3-4 regions Electronic Stimulation: Yes Electrical Stimulation: Cervical 15 mins (20) mA Therapy Performed by:: Brooklyn Matthews, Mechanical: Yes Patient Response: positive Assessment and Plan Assessment and Plan (1) Segmental and somatic dysfunction of pelvic region: Status: Acute Orders: Orders: Chiropractic Treatments 04/29/21 (2) Segmental and somatic dysfunction of lumbar region: Status: Acute Orders: Orders: Chiropractic Treatments 04/29/21 (3) Segmental and somatic dysfunction of thoracic region: Status: Acute Orders: Orders: Chiropractic Treatments 04/29/21 (4) Segmental and somatic dysfunction of cervical region: Status: Acute Orders: Orders: Chiropractic Treatments 04/29/21 Plan Details Additional Comments: Patient was treated without incident. Continue care. Goals Barriers: Goals Decrease pain and spasm Improve ROM Improve ability to perform ADLs with comfort Barriers Posture Follow Up: 1 Week Coding Level of Care Code No Charge Diagnoses Segmental and somatic dysfunction of pelvic region M99.05 Segmental and somatic dysfunction of lumbar region M99.03 Segmental and somatic dysfunction of thoracic region M99.02 Segmental and somatic dysfunction of cervical region M99.01 CPT Codes Procedures - Manipulation: 3-4 regions (24365) Procedures - Electronic Stimulation: Yes (87714) Procedures - Traction, Mechanical: Yes (75117) 04/30/21 0908 <Electronically signed by Loreto Story D.C.> Date Loreto Story D.C. Cosigner Signature: Date (if applicable) CC: Effie Bran CNP Work Phone: Start: 03-25-2021 End: 03-25-2021 Chiropractic Report Comments: See Note; NOTES: [facility] [address] [place] [id number] OFFICE VISIT Date of Service: 03/25/21 MR#: [id number] Acct: [id number] Name: DEB OSEI Rep #: [id number] : 1975 Provider: CARLOS Hansen Age/Sex: 45/F Location: [facility] [place] Status: Signed Intake Intake Visit Reasons: back pain Chief Complaint: Left Neck Shoulder Qa Reviewer Required: No Accompanied by: Self Is patient in pain?: Yes (Left shoulder) Pain scale (1-10): 5 Allergies No Known Allergies Allergy (Verified 06/06/19 13:28) [facility] Medical History Chronic headaches Multinodular goiter Weight gain Surgical History History of appendectomy History of Hx of hernia repair Family History Grandmother Colon cancer Diabetes Heart disease Sister Melanoma skin cancer Brother Thyroid disorder Grandfather Heart disease Other Depression Hypertension Myocardial infarction HPI back pain Chief Complaint: Left Neck Left Shoulder Visit Number: 1 Details: Details: Deb Osei 45 F is here today for Left Shoulder and left neck pain. Left shoulder pain is 5/10 sharp,achy constant and her neck left side cracking and tightness. Patient stated the pain is aggravated by driving. Her low back pain is mild with stiffness on occasion. NO recent injury. Location: Left side neck / Left Shoulder Duration: constant Aggravating or associated factors: driving Relieving factors: Ibprofen, heat and ice Pain Quality: aching, sharp and other (tight) Current Sensation: snapping/popping and other ( ) Exam Musc General: Yes normal posture, normal gait and joint tenderness; No decreased range of motion Cervical Spine: Yes loss of normal cervical lordosis, Yes cervical muscular tenderness left greater than right diffuse , Yes cervical spasm left greater than right lower trapezius and paracervical muscles and Yes misalignment misalignment: C5, C6 and C7 Thoracic/Lumber: Yes thoracic and lumbar spine normal to inspection, Yes Lasegue's sign negative, Yes straight leg raise negative bilaterally, Yes pain with thoraco-lumbar ROM with forward flexion, with rotation to the right and with rotation to the left, Yes paraspinal tenderness bilaterally in the lower lumbar and on the left greater than right (upper/mid thoracic), No thoraco-lumbar ROM limited, Yes thoraco-lumbar spasm bilaterally (QL) in the lower lumbar and on the left greater than right (trap, levator: trigger points) and Yes misalignment T3, T4, T5, T6, L4, L5 and LIL Sacroiliac joints: on the left tender to palpation Office Procedures Procedures - Chiropractic Procedures Stimulation: with Manipulation: Cervical C6, Lumbar L4, Thoracic T3 and T6 and Pelvis LIL Manipulation: 3-4 regions Electronic Stimulation: Yes Electrical Stimulation: Cervical 15 mins (20) mA Therapy Performed by:: Brooklyn Arney Traction, Mechanical: Yes Patient Response: positive Procedures - Chiropractic Procedures Stimulation: with Manipulation: Cervical C6, Lumbar L5 and Thoracic T1 and T6 Manipulation: 3-4 regions Electronic Stimulation: Yes Electrical Stimulation: Cervical 15 mins (18) mA Therapy Performed by:: Brooklyn Levi Traction, Mechanical: No Patient Response: positive Assessment and Plan Assessment and Plan (1) Segmental and somatic dysfunction of pelvic region: Status: Acute Orders: Orders: Chiropractic Treatments Today Chiropractic Treatments Today (2) Segmental and somatic dysfunction of lumbar region: Status: Acute Orders: Orders: Chiropractic Treatments Today Chiropractic Treatments Today (3) Segmental and somatic dysfunction of thoracic region: Status: Acute Orders: Orders: Chiropractic Treatments Today Chiropractic Treatments Today (4) Segmental and somatic dysfunction of cervical region: Status: Acute Plan Details Additional Comments: Patient was treated without incident. Continue care. Goals Barriers: Goals Decrease pain and spasm Improve ROM Improve ability to perform ADLs with comfort Barriers Posture Follow Up: PRN Coding Level of Care Code No Charge Diagnoses Segmental and somatic dysfunction of pelvic region M99.05 Segmental and somatic dysfunction of lumbar region M99.03 Segmental and somatic dysfunction of thoracic region M99.02 Segmental and somatic dysfunction of cervical region M99.01 CPT Codes Procedures - Electronic Stimulation: Yes (33541) Procedures - Manipulation: 3-4 regions (54938) Procedures - Traction, Mechanical: Yes (68228) Procedures - Manipulation: 3-4 regions (96811) Procedures - Electronic Stimulation: Yes (25216) 03/25/21 0951 <Electronically signed by Loreto Story D.C.> Date Loreto Pelayoigndelmi Signature: Date (if applicable) CC: Effie Bran [facility] Work Phone: Start: 10-08-2020 End: 10-08-2020 Thyroid Comments: See Note; NOTES: [facility] [address] [place] [address] Thyroid MR#: [id number] Acct: [id number] Name: DEB OSEI Rep #: [id number] : 1975 F 44 From: Rafi smith MD PCP: JESSICA Garcia Status: REG CLI Study: Thyroid Date of Exam: 10/08/20 Exam# [id number] Ordering Dr: Leidy Amador NP STUDY: THYROID ULTRASOUND REASON FOR EXAM: Female, 44 years old. MULTIPLE THYROID NODULES TECHNIQUE: Ultrasound evaluation of the thyroid was performed with real-time and static michaud-scale imaging. COMPARISON: Comparison is made with prior study of 04/26/2019. FINDINGS: RIGHT LOBE: The right lobe of the thyroid gland is enlarged and measures 5.3 cm x 2.4 cm x 1.04 cm. There is a homogeneous echotexture. Stable 2 cm x 1.5 cm x 1.1 cm solid nodule with small cysts within it is once again seen in the mid and lower pole of the right lobe. There are 2 stable slightly hyperechoic nodules in the right mid thyroid. The larger measures 8 mm x 7 mm x 8 mm. LEFT LOBE: The left lobe of the thyroid gland is mildly enlarged and measures 4.9 cm x 2 cm x 1 cm. There is a homogeneous echotexture. Limits again, 4 nodules are seen. The largest measures 1.8 cm x 1.3 cm x 0.8 cm. It is mostly solid and cystic nodules in the upper pole. ISTHMUS: The isthmus measures 2 mm. The regional lymph nodes are normal. US/Thyroid IMPRESSION: Enlargement of both lobes of the thyroid more prominent on the right side with stable bilateral thyroid nodules. Electronically Signed: Rafi Maria MD at 14:44 EDT , Service support , CC: JESSICA Amador Body Presser: Signed Leidy Amador CNP Work Phone: Start: 07-12-2019 End: 07-12-2019 Chiropractic Report Comments: See Note; NOTES: [facility] [address] [place], [place] [id number] OFFICE VISIT Date of Service: 07/12/19 MR#: [id number] Acct: [id number] Name: DEB OSEI Rep #: [id number] : 1975 Provider: CARLOS Hansen Age/Sex: 43/F Location: [facility] Status: Signed Intake Intake Visit Reasons: back pain Chief Complaint: R low back pain Is patient in pain?: Yes Allergies No Known Allergies Allergy (Verified 06/06/19 13:28) [facility] Medical History Chronic headaches (Acute) Multinodular goiter (Acute) Weight gain (Acute) Surgical History History of (Acute) History of appendectomy (Acute) Hx of hernia repair (Acute) Family History Grandmother Colon cancer Diabetes Heart disease Sister Melanoma skin cancer Brother Thyroid disorder Grandfather Heart disease Other Depression Hypertension Myocardial infarction HPI back pain : Chief Complaint: R sided low back pain Visit Number: 3 Details: DEB OSEI is a 43 year old F who presents with R sided low back pain. Deb states that her pain has increased after working from home sitting in a fold up chair. Today Deb rates her pain a 3/10, she describes it as a deep and sore ache that does radiate into the R thigh at times. When sitting the pain is at its worst causes a deep and sore ache in to the leg. Deb denies any numbness ,tingling, or radiculopathy. Onset: 06/28/19 Location: R low back Duration: intermittent Aggravating or associated factors: prolonged sitting Relieving factors: chiro Pain Quality: aching, dull, cramping, radiating Exam Musc General: Yes normal gait, joint tenderness (C6,C7,T1,T2,T6,T7,L4,L5 ) and decreased ROM; no normal posture (anterior head carriage-mild) Cervical Spine: Yes loss of normal cervical lordosis, Yes cervical muscular tenderness bilateral lower: paracervical muscle and trapezius, Yes cervical spasm bilateral lower: trapezius and paracervical muscles, Yes misalignment misalignment: C5, C6, C7 Thoracic/Lumber: Yes thoracic and lumbar spine normal to inspection, Yes straight leg raise negative bilaterally, Yes paraspinal tenderness bilaterally in the upper thoracic and in the mid thoracic and on the right greater than left (lumbar), Yes thoraco-lumbar ROM limited, Yes thoraco-lumbar spasm bilaterally in the upper thoracic and in the mid thoracic and on the right greater than left (lumbar paraspinal), Yes misalignment T1, T2, T6, T7, L4, L5 Office Procedures Chiropractic Treatments Procedures Manipulation: Cervical C6, Lumbar L5, Thoracic T1, T6 Manipulation: 3-4 regions Electronic Stimulation: Yes Electrical Stimulation: Lumbar (R) 15 mins (25) mA Therapy Performed by:: Manuela Torres MA Traction, Mechanical: Yes Patient Response: positive Assessment Plan 1. Segmental and somatic dysfunction of lumbar region M99.03 Orders Orders: Chiropractic Treatments Today 2. Segmental and somatic dysfunction of thoracic region M99.02 Orders Orders: Chiropractic Treatments Today 3. Segmental and somatic dysfunction of cervical region M99.01 Orders Orders: Chiropractic Treatments Today Plan Detail Other Orders Orders: Chiropractic Treatments Today M99.05 Additional Comments Patient was treated without incident. Continue care on PRN basis. Goals Decrease pain and spasm Improve ROM Improve ability to perform ADLs with comfort Barriers Posture Follow Up prn Coding Level of Care Code No Charge Diagnoses Segmental and somatic dysfunction of lumbar region M99.03 Segmental and somatic dysfunction of thoracic region M99.02 Segmental and somatic dysfunction of cervical region M99.01 Additional Codes Procedures - Electronic Stimulation: Yes (75904) Procedures - Traction, Mechanical: Yes (03501) Procedures - Manipulation: 3-4 regions (41480) 07/12/19 0850 <Electronically signed by Loreto Story D.C.> Date Loreto Pelayoign Signature: Date (if applicable) CC: Leidy Amador Start: 06-06-2019 End: 06-06-2019 Surgery Visit Report Comments: See Note; NOTES: [facility] [address] [place] [address] [address] [place] [address] OFFICE VISIT Date of Service: 06/06/19 MR#: [id number] Acct: [id number] Name: DEB OSEI Rep #: [id number] : 1975 Provider: Bishop Carpio MD Age/Sex: 43/F Location: [facility] Status: Signed Intake Vital Signs06/06/19 Height 5 ft 9 in 06/06/19 Weight: 160 lb 06/06/19 BMI 23.6 06/06/19 BP 162/95 H 06/06/19 Blood Pressure Location Rt brachial 06/06/19 Position Sitting 06/06/19 Respiration 18 06/06/19 Pulse 79 06/06/19 Pulse Source Monitor 06/06/19 Temp 98.1 F 06/06/19 Temp Source Oral 06/06/19 Pulse Oximetry (%) 99 06/06/19 Oxygen Delivery Method room air Intake Visit Reasons: Thyroid Nodules Chief Complaint: thyroid nodules Qa Reviewer Required: No Is patient in pain?: No Allergies No Known Allergies Allergy (Verified 06/06/19 13:28) Medications ibuprofen 600 mg tablet 600 mg PO ONCE 01/26/17 [History Confirmed 06/06/19] PFSH Medical History Multinodular goiter (Acute) Weight gain (Acute) Chronic headaches (Acute) Surgical History (Updated 06/06/19 @ 13:22 by Vane Gupta) History of (Acute) History of appendectomy (Acute) Hx of hernia repair (Acute) Family History (Updated 06/06/19 @ 13:27 by Vane Gupta) Grandmother Colon cancer Diabetes Heart disease Sister Melanoma skin cancer Brother Thyroid disorder Grandfather Heart disease Other Depression Hypertension Myocardial infarction HPI HPI HPI: DEB OSEI, is a 43 F who presents to the office today for HPI HPI HPI: DEB OSEI, is a 43 F who presents to the office today for ROS General General: Yes weight change and fatigue; no appetite, colon cancer, breast cancer or weakness HEENT HEENT: Yes difficulty swallowing; no eye injury, eye surgery, swollen glands or hoarseness Endo Endocrine: No thyroid disease, diabetes mellitus, thyroid cancer, Hair loss, heat intolerance or cold intolerance Skin Skin: No rash or changing moles Breast Breast: No left breast lump, right breast lump, nipple discharge, breast pain, abnormal mammogram, abnormal US or breast enlargement Musc Musculoskeletal: No back problems, arthritis, rheumatoid arthritis, gout or joint pain Cardio Cardiovascular: No murmur, pacemaker, heart disease, atrial fibrillation, high blood pressure, heart attack, heart stent, palpitations, shortness of breat with exertion or chest pain Psych Psychiatric: No depression, anxiety or hearing voices Resp Respiratory: No shortness of breath, No sleep apnea, No cough, No COPD, No asthma, No emphysema, No wheezing Gastro Gastrointestinal: No abdominal pain, No nausea or vomiting, No diarrhea, No constipation, No blood in stool, No acid reflux, No hemorrhoids, No ulcers, No gallbladder problem, No black,tarry stools Chidi Hematologic: No blood thinners, No blood disorders, No bleeding, No anemia, No blood clots Neuro Neurologic: No system reviewed and no additional complaints, except as docu, No as per HPI, No abnormal walking, No abnormal hearing, No abnormal movements, No abnormal speech, No behavioral changes, No burning sensations, No confusion, No seizure-like activity, No unsteadiness, No dizziness, No localized weakness, No frequent falls, No headache(s), No lack of coordination, No loss of vision, No memory loss, No numbness, No other visual disturbances, No radiating pain, No restless legs, No sensory deficit, No fainting, No tingling, No tremor(s), No weakness, No other Exam Chest Breast Palpation: No nipple discharge Cardio Heart Sounds: no murmurs Office Procedures Fine Needle Aspiration Provider Documentation Details: Preoperative diagnosis: Multinodular goiter Postoperative diagnosis: The same Procedure: Ultrasound-guided bilateral fine-needle aspirations multinodular goiter Surgeon: Balaji Procedure: Ultrasound of the right thyroid gland revealed a nodule in question. Prepped the skin with alcohol. I injected 1% lidocaine plain. Under ultrasound guidance I took 3 passes with a 22-gauge needle and plated these on glass slides. Sterile dressings were applied. She tolerated this well. Ultrasound of the left thyroid gland revealed a nodule in question. I prepped the skin with alcohol. I injected 1% lidocaine plain. Under ultrasound guidance I took 3 passes with a 22-gauge needle. Plated these on glass slides. Sterile dressings were applied. And the patient tolerated the procedure well. Alert Souvenir And Novelty Maker Alert Billing: Yes FNA [id number] Thyroid Procedure Time Out Time Out Informed consent given: Yes Consent signed: Yes Time out checklist: patient, procedure, site marked/identified, positioning of patient, supplies available, allergies confirmed, team agrees on procedure Time out staff in room: Yes Time out verified: Yes Time out date: 06/06/19 Time out time: 13:29 Assessment AND Plan Orders Orders: Plan Detail Goals Decrease pain and spasm Improve ROM Improve ability to perform ADLs with comfort Barriers Posture Coding Level of Care Code Attention Souvenir And Novelty Maker Additional Codes FNA - Fine Needle Aspiration: 42630 Thyroid (32902) 06/06/19 1353 <Electronically signed by Bishop Carpio MD> Date Bishop Carpio MD Cosigner Signature: Date (if applicable) CC: JESSICA Forbes Ironcrescencio Start: 04-26-2019 End: 04-27-2019 Thyroid Comments: See Note; NOTES: [facility] Services [address] [place] [address] Thyroid MR#: [id number] Acct: [id number] Name: DEB OSEI Rep #: [id number] : 1975 F 43 From: Louie Phillips MD PCP: JESSICA Garcia Status: REG CLI Study: Thyroid Date of Exam: 04/26/19 Exam# [id number] Ordering Dr: Leidy Amador STUDY: THYROID ULTRASOUND REASON FOR EXAM: Female, 43 years old. Thyromegaly on exam. TECHNIQUE: Ultrasound evaluation of the thyroid was performed with real-time and static michaud-scale imaging. COMPARISON: None. FINDINGS: RIGHT LOBE: The right lobe of the thyroid gland measures 5.4 x 2.2 x 1.5 cm. There is a homogeneous echotexture. Mixed solid and cystic nodule in the mid thyroid lobe measures 1.9 x 1.4 x 1.1 cm. 2 solid hyperechoic nodules measuring 0.7 x 0.7 x 0.4 cm and 0.8 x 0.8 x 0.5 cm respectively are also located in the right mid thyroid lobe. These nodules have irregular margins with intranodular Doppler vascularization. LEFT LOBE: The left lobe of the thyroid gland measures 4.9 x 2.0 x 1.2 cm. There is a homogeneous echotexture. Mixed solid and cystic nodule in the upper pole measuring 1.6 x 1.1 x 0.8 cm. This has irregular margins with intranodular Doppler vascularization. Smaller second solid nodule in the middle portion of the gland measuring 0.4 x 0.5 x 0.2 cm. This has regular margins with intranodular Doppler vascularization. ISTHMUS: The isthmus measures 3 mm. US/Thyroid IMPRESSION: 1. Mixed solid and cystic nodule in the right mid thyroid lobe measures 1.9 x 1.4 x 1.1 cm. This is feasible for ultrasound-guided FNA biopsy. 2. Small solid thyroid nodules in the right thyroid lobe measure 0.7 x 0.7 x 0.4 cm and 0.8 x 0.8 x 0.5 cm. These are also in the right mid thyroid lobe. They are too small for ultrasound-guided FNA. 3. Mixed solid and cystic nodule in the left mid thyroid lobe measures 1.6 x 1.1 x 0.8 cm. This is feasible for ultrasound-guided FNA biopsy if desired. 4. Small solid thyroid nodule in the upper pole of the left thyroid lobe measures 0.4 x 0.5 x 0.2 cm. This is too small for ultrasound-guided FNA. Electronically Signed: Louie Phillips MD at 9:09 EDT , Service support , CC: JESSICA Amador Body Presser: Signed Leidy Amador Work Phone: Start: 03-01-2019 End: 03-01-2019 Chiropractic Report Comments: See Note; NOTES: [facility] [address] [place] [address] OFFICE VISIT Date of Service: 03/01/19 MR#: [id number] Acct: [id number] Name: DEB OSEI Rep #: [id number] : 1975 Provider: Loreto Story D.C. Age/Sex: 43/F Location: [facility] Status: Signed Intake Intake Visit Reasons: neck pain Chief Complaint: neck and upper back pain Is patient in pain?: Yes Allergies No Known Allergies Allergy (Unverified 01/26/17 15:06) [facility] Medical History Chronic headaches (Acute) Surgical History History of appendectomy (Acute) Hx of hernia repair (Acute) Family History Other Colon cancer Depression Heart disease Hypertension Melanoma Myocardial infarction HPI neck pain: Chief Complaint: neck and upper back pain Visit Number: 2 Details: DEB OSEI is a 43 year old F who presents with neck and upper back pain. Deb states that her neck pain has been persistent, leaving her with a deep and sore ache that comes and goes. Rotation of the neck, computer work, and lifting causes increased pain and tightness across the neck. She states that the pain is now radiating into the upper back leaving her with a tight pulling sensation. Deb denies any numbness, tingling, or radiculopathy. Location: neck and upper back Duration: constant Aggravating or associated factors: rotation of the neck, computer work, lifting Relieving factors: chiro Pain Quality: aching, dull, cramping, sharp Exam Musc General: Yes normal gait, joint tenderness (C6,C7,T1,T2,T6,T7) and decreased ROM; no normal posture (anterior head carriage-mild) Cervical Spine: Yes loss of normal cervical lordosis, Yes cervical muscular tenderness bilateral lower: paracervical muscle and trapezius, Yes pain with cervical ROM, Yes cervical spasm (trigger pts in R scalene) bilateral lower: trapezius and paracervical muscles, Yes misalignment misalignment: C4, C5, C6, C7 Thoracic/Lumber: Yes thoracic and lumbar spine normal to inspection, Yes straight leg raise negative bilaterally, Yes paraspinal tenderness bilaterally in the upper thoracic and in the mid thoracic, Yes thoraco-lumbar ROM limited, Yes thoraco-lumbar spasm bilaterally in the upper thoracic and in the mid thoracic, Yes misalignment T1, T2, T6, T7 Office Procedures Chiropractic Treatments Procedures Manipulation: Cervical C4, C6, Thoracic T2, T6 Manipulation: 1-2 regions Electronic Stimulation: Yes Electrical Stimulation: Cervical 15 mins (17) mA, Thoracic Therapy Performed by:: Manuela Torres MA Patient Response: positive Assessment AND Plan 1. Segmental and somatic dysfunction of thoracic region M99.02 Orders Orders: 2. Segmental and somatic dysfunction of cervical region M99.01 Orders Orders: Plan Detail Other Orders Orders: Additional Comments Patient continues to have deficiencies. Continue care. Goals Decrease pain and spasm Improve ROM Improve ability to perform ADLs with comfort Barriers Posture Follow Up visit 2 of 3 Coding Level of Care Code No Charge Diagnoses Segmental and somatic dysfunction of thoracic region M99.02 Segmental and somatic dysfunction of cervical region M99.01 Additional Codes Procedures - Electronic Stimulation: Yes (90809) Procedures - Manipulation: 1-2 regions (32221) 03/01/19 1645 <Electronically signed by Loreto Story D.C.> Date Loreto Benítez Signature: Date (if applicable) CC: Leidy Binduradha Start: 02-21-2019 End: 02-21-2019 Office Visit Report Comments: See Note; NOTES: [facility] [place] [address] OFFICE VISIT Date of Service: 02/21/19 MR#: [id number] Acct: [id number] Patient: DEB OSEI Rep #: [id number] : 1975 Provider: Nnamdi GONSALES Age/Sex: 43/F Location: [facility] Status: Signed Intake Intake Visit Reasons: FLU SHOT, TDAP Chief Complaint: neck and upper back pain Allergies No Known Allergies Allergy (Unverified 01/26/17 15:06) Office Meds Flucelvax Quad (PF) Performing Provider: ILDA Raman Administered by: Jason Mccarty on 02/21/19 14:20 Dose Route Admin Location Lot Number Expiration Date [facility] [employer] 60 mcg IM right deltoid [id number] 08/16/19 84203-866-71 [employer] Immunizations Adacel(Tdap Adolesn/Adult)(PF) Performing Provider: ILDA Raman Administered by: Jason Mccarty on 02/21/19 14:25 Dose Route Admin Location Lot Number Expiration Date [facility] [employer] 0.5 mL IM Left Deltoid [id number] 02/21/19 [id number] [employer] VIS Given Date VIS Provided VIS Publication Date 02/21/19 Single Vaccine 14 Eligibility Eligibility Date Funding Source Assessment AND Plan Orders Orders: Plan Detail Goals Decrease pain and spasm Improve ROM Improve ability to perform ADLs with comfort Barriers Posture 02/21/19 1605 <Electronically signed by Nnamdi GONSALES> Date Nnamdi GONSALES Cosigner Signature: Date (if applicable) CC: Leidy Amador Start: 02-21-2019 End: 02-21-2019 Chiropractic Report Comments: See Note; NOTES: [facility] [address] [place] [address] OFFICE VISIT Date of Service: 02/21/19 MR#: [id number] Acct: [id number] Name: DEB OSEI Rep #: [id number] : 1975 Provider: Loreto Story D.C. Age/Sex: 43/F Location: [facility] Status: Signed Intake Vital Signs02/21/19 BMI 20.7 Intake Visit Reasons: neck pain Chief Complaint: neck and upper back pain Is patient in pain?: Yes Allergies No Known Allergies Allergy (Unverified 01/26/17 15:06) [facility] Medical History Chronic headaches (Acute) Surgical History History of appendectomy (Acute) Hx of hernia repair (Acute) Family History Other Colon cancer Depression Heart disease Hypertension Melanoma Myocardial infarction HPI neck pain: Chief Complaint: neck and upper back pain Visit Number: 1 Details: DEB OSEI is a 43 year old F who presents with neck and upper back pain. Deb states that her neck pain has increased leaving her with frequent headaches. The area is stiff and sore with a tight ache banding into the mid back. She states that pain is at its worst when working on the computer and at the end of the day. Currently Deb rates her pain a 4/10, the pain is constant and can become sharp. Deb denies any numbness, tingling, or radiculopathy. Location: neck and upper back Duration: constant Aggravating or associated factors: rotation, computer work Relieving factors: chiro Pain Quality: aching, dull, cramping, sharp Exam Musc General: Yes normal gait, joint tenderness (C6,C7,T1,T2,T6,T7,L2,L3 ,L4,L5) and decreased ROM; no normal posture (anterior head carriage-mild) Cervical Spine: Yes loss of normal cervical lordosis, Yes cervical muscular tenderness bilateral lower: paracervical muscle and trapezius, Yes pain with cervical ROM, Yes cervical spasm (trigger pts in R scalene) bilateral lower: trapezius and paracervical muscles, Yes misalignment misalignment: C4, C5, C6, C7 Thoracic/Lumber: Yes thoracic and lumbar spine normal to inspection, Yes straight leg raise negative bilaterally, Yes paraspinal tenderness bilaterally in the upper thoracic and in the mid thoracic and on the right greater than left (lower lumbar-slightly improved), Yes thoraco-lumbar ROM limited, Yes thoraco-lumbar spasm bilaterally in the upper thoracic and in the mid thoracic and on the right greater than left (QL), Yes misalignment T1, T2, T6, T7, L2, L3, L4, L5, LIL Sacroiliac joints: on the left tender to palpation Office Procedures Chiropractic Treatments Procedures Manipulation: Cervical C4, C6, Lumbar L3, Thoracic T2, T6, Pelvis LIL Manipulation: 3-4 regions Electronic Stimulation: Yes Electrical Stimulation: Cervical 15 mins (18) mA Therapy Performed by:: Manuela Torres MA Patient Response: positive Assessment AND Plan 1. Segmental and somatic dysfunction of lumbar region M99.03 Orders Orders: 2. Segmental and somatic dysfunction of pelvic region M99.05 Orders Orders: 3. Segmental and somatic dysfunction of thoracic region M99.02 Orders Orders: 4. Segmental and somatic dysfunction of cervical region M99.01 Orders Orders: Plan Detail Additional Comments Patient was treated without incident. Continue care. Goals Decrease pain and spasm Improve ROM Improve ability to perform ADLs with comfort Barriers Posture Follow Up 2 Weeks Coding Level of Care Code No Charge Diagnoses Segmental and somatic dysfunction of lumbar region M99.03 Segmental and somatic dysfunction of pelvic region M99.05 Segmental and somatic dysfunction of thoracic region M99.02 Segmental and somatic dysfunction of cervical region M99.01 Additional Codes Procedures - Manipulation: 3-4 regions (27067) Procedures - Electronic Stimulation: Yes (98984) 02/21/19 1404 <Electronically signed by Loreto Story D.C.> Date Loreto Story D.C. Cosigner Signature: Date (if applicable) CC: Leidy Amador Start: 06-03-2018 End: 06-03-2018 Chiropractic Report Comments: See Note; NOTES: [facility] [address] [place] [address] OFFICE VISIT Date of Service: 06/03/18 MR#: [id number] Acct: [id number] Name: DEB OSEI Rep #: [id number] : 1975 Provider: Loreto Story D.C. Age/Sex: 42/F Location: [facility] Status: Signed Intake Vital Signs06/03/18 Height 5 ft 9 in 06/03/18 Weight: 140 lb 06/03/18 Body Mass Index (BMI) 20.7 Intake Visit Reasons: neck pain Chief Complaint: L sided neck pain Is patient in pain?: Yes Allergies No Known Allergies Allergy (Unverified 01/26/17 15:06) Medications ibuprofen 600 mg tablet 600 mg PO ONCE 01/26/17 [History Confirmed 01/26/17] PFSH Medical History Chronic headaches (Acute) Surgical History History of appendectomy (Acute) Hx of hernia repair (Acute) Family History Other Colon cancer Depression Heart disease Hypertension Melanoma Myocardial infarction HPI neck pain : Chief Complaint: Neck pain Visit Number: 1 Details: DEB OSEI is a 42 year old F who presents with increased neck pain. She states that her pain as increased, leaving her with a dull ache and tight ache banding across the neck. Rotation of the neck, lifting, looking down, and working on the computer causes tightness and pain in the neck. Today Deb rates her pain a 3/10, she states that it is a constant and tight ache that increases throughout the day. Deb denies any numbness, tingling, or radiculopathy. Onset: 03/29/18 Location: neck/upper back Duration: constant Aggravating or associated factors: rotation of the neck, lifting, and computer work Relieving factors: chiro Pain Quality: aching, dull, cramping Exam Musc General: Yes normal gait, joint tenderness (C5,C6,C7,T1,T2,T6) and decreased ROM; no normal posture (anterior head carriage) Cervical Spine: loss of normal cervical lordosis, cervical muscular tenderness bilateral lower: paracervical muscle and trapezius, pain with cervical ROM with lateral flexion to right and with lateral flexion to left, cervical spasm (R scalene), cervical spinal tenderness at C5, at C6, at C7 and at T1, cervical ROM abnormal Thoracic/Lumbar Spine: thoracic and lumbar spine normal to inspection, paraspinal tenderness bilaterally in the upper thoracic and in the mid thoracic, thoraco-lumbar spasm bilaterally in the upper thoracic and in the mid thoracic Office Procedures Chiropractic Treatments Procedures Manipulation: 1-2 regions (C5, C6, T2, T6) Electrical Stimulation: 15 mins (Cervical ) Assessment AND Plan 1. Segmental and somatic dysfunction of cervical region M99.01 Orders Orders: 2. Segmental and somatic dysfunction of thoracic region M99.02 Orders Orders: Plan Detail Additional Comments Patient has been getting massage regularly and still was getting discomfort. Goals Decrease pain and spasm Barriers Posture Follow Up PRN Coding Level of Care Code No Charge Diagnoses Segmental and somatic dysfunction of cervical region M99.01 Segmental and somatic dysfunction of thoracic region M99.02 Additional Codes Procedures - Electrical Stimulation: 15 mins (57012) Procedures - Manipulation: 1-2 regions (30550) 06/03/18 1222 <Electronically signed by Loreto Dossi D.C.> Date Loreto Nunez Signature: Date (if applicable) CC: Leidy Amador Start: 02-03-2017 End: 02-03-2017 Chiropractic Report Comments: See Note; NOTES: [facility] [address] [place] [address] OFFICE VISIT Date of Service: 02/02/17 MR#: [id number] Acct: [id number] Name: DEB OSEI Rep #: [id number] : 1975 Provider: Loreto Story D.C. Age/Sex: 41/F Location: [facility] Status: Signed Intake Vital Signs02/02/17 Height 5 ft 9 in 02/02/17 Weight: 145 lb 02/02/17 Body Mass Index (BMI) 21.4 Intake Visit Reasons: neck pain Is patient in pain?: Yes Allergies No Known Allergies Allergy (Unverified 01/26/17 15:06) Medications ibuprofen 600 mg tablet 600 mg PO ONCE 01/26/17 [History Confirmed 01/26/17] PFSH Medical History Segmental and somatic dysfunction of thoracic region (Acute) Segmental and somatic dysfunction of cervical region (Acute) Chronic headaches (Acute) Surgical History History of appendectomy (Acute) Hx of hernia repair (Acute) Family History Other Colon cancer Depression Heart disease Hypertension Melanoma Myocardial infarction HPI neck pain : Chief Complaint: neck pain Visit Number: 2 Details: DEB OSEI is a 41 year old F who presents with decreased neck pain. She states that after her last treatment she was sore and tight, over all now her pain has decreased. Deb states that the past two days she has not needed to ice due to the decreased pain. Today the patient rates her pain a 2/10 and describes it as a sore ache that comes and goes. First thing in the morning her pain is slightly increased but as the day goes on the pain does decrease. The patient denies any numbness or tingling. Location: neck pain Duration: intermittent Aggravating or associated factors: sitting, computer work, lifting Pain Quality: aching, cramping Exam Musc General: Yes normal gait and joint tenderness (C5, C6, T2, T6); no normal posture (anterior head carriage) Cervical Spine: loss of normal cervical lordosis, pain with cervical ROM with lateral flexion to left and with lateral flexion to right, cervical spinal tenderness at C5, at C6, at C7 and at T1, cervical ROM abnormal, cervical spasm (R scalene) Office Procedures Chiropractic Treatments Procedures Manipulation: 1-2 regions (C2, C6, T4) Electrical Stimulation: 15 mins Location: cervical Hot and/or cold packs: Yes Assessment AND Plan 1. Segmental and somatic dysfunction of thoracic region M99.02 Orders Orders: 2. Segmental and somatic dysfunction of cervical region M99.01 Orders Orders: Plan Detail Goals Decrease pain and spasm Barriers Posture Follow Up 2 Days (per week) 02/03/17 0837 <Electronically signed by Loreto Story D.C.> Date Loreto Story D.C. Cosigner Signature: Date (if applicable) CC: Leidy Binduradha Start: 01-27-2017 End: 01-27-2017 Chiropractic Report Comments: See Note; NOTES: [facility] [address] [place] [address] OFFICE VISIT Date of Service: 01/26/17 MR#: [id number] Acct: [id number] Name: DEB OSEI Rep #: [id number] : 1975 Provider: Loreto Story D.C. Age/Sex: 41/F Location: [facility] Status: Signed Intake Vital Signs01/26/17 Height 5 ft 9 in 01/26/17 Weight: 145 lb 01/26/17 Body Mass Index (BMI) 21.4 Intake Visit Reasons: L sided neck pain Chief Complaint: L sided neck and upper back pain Is patient in pain?: Yes Allergies No Known Allergies Allergy (Unverified 01/26/17 15:06) Medications ibuprofen 600 mg tablet 600 mg PO ONCE 01/26/17 [History Confirmed 01/26/17] PFSH Medical History Segmental and somatic dysfunction of thoracic region (Acute) Segmental and somatic dysfunction of cervical region (Acute) Chronic headaches (Acute) Surgical History History of appendectomy (Acute) Hx of hernia repair (Acute) Family History Other Colon cancer Depression Heart disease Hypertension Melanoma Myocardial infarction HPI L sided neck pain : Chief Complaint: L sided neck pain Visit Number: 1 Referral source: Friend @ work Details: DEB OSEI is a 41 year old F who presents with L sided neck pain. She states that in October she drove to [facility], after arriving she noticed slight tenderness in the L neck and shoulder area, which has since increased. Today Deb describes her pain as a dull ache during the day and in the evening becomes a shooting pain. Driving increases the pain, streching does help decrease the pain. At its worst Deb rates her pain an 8/10, the pain does radiate into the L shoulder and down around the back of the shoulder blade. The patient denies any numbness or tingling. Onset: 10/17/16 Location: L neck and shoulder Aggravating or associated factors: driving Relieving factors: ice and stretching Pain Quality: aching, dull, sharp ROS [facility] Reports system reviewed and no additional complaints, except as docu, Reports as per HPI Exam Musc General: Yes normal gait and joint tenderness (C5, C6, T2, T6); no normal posture (anterior head carriage) Cervical Spine: loss of normal cervical lordosis, pain with cervical ROM with lateral flexion to left and with lateral flexion to right, cervical spinal tenderness at C5, at C6, at C7 and at T1, cervical ROM abnormal, cervical spasm (R scalene) Neuro General: alert, awake, oriented x3, gait normal Cranial Nerves: CN's II-XI intact bilaterally Cognition: normal cognition Speech: speech normal Motor: strength 5/5 throughout Sensory Exam: no sensory deficits noted Ortho Test CERVICAL Compression pain: Negative Distraction pain: relief Kenneth's pain: Left Valsalvas: Negative Shoulder depression pain: Left THORACIC Kemps: Negative Schepelmanns pain: Negative Greene: Negative LUMBAR Office Procedures Chiropractic Treatments Procedures Manipulation: 1-2 regions (C5, T2, T6) Electrical Stimulation: 15 mins Location: cerical L sided Hot and/or cold packs: Yes Assessment AND Plan 1. Segmental and somatic dysfunction of cervical region M99.01 Orders Orders: 2. Segmental and somatic dysfunction of thoracic region M99.02 Plan Recommend acute treatment plan. Patient will follow up next week and monitor how she responds to first treatment. Patient Instructions Evaluate posture at work station. Recommend cervical traction at home. Plan Detail Goals Decrease pain and spasm Barriers Posture Follow Up 1 Week 01/27/17 0237 <Electronically signed by Loreto Story D.C.> Date Loreot Nunez Signature: Date (if applicable) CC: Leidy Ciesa Appendectomy Simi Stokes Comment on above: 2005 bladder sling Sintia Gravius bladder sling Nghia Jefferson bladder sling Rosetta Mckeon PN bladder sling Wily Kwon MA section Sintia Grav ius Comment on above: 2001,2003,2008 2001, 2003, 2008 section Nghia vaca Comment on above: 2001,2003,2008 section Rosetta landry LPN Comment on above: 2001,2003,2008 section Wily Kwon MA Comment on above: 2001,2003,2008 Dilation and curetta ge of uterus Sintia Gravius Dilation and curetta ge of uterus Nghia Jefferson Dilation and curetta ge of uterus Rosetta Millan LPN Dilation and curetta ge of uterus Wily Kwon MA Excision of lesion o f skin Wily Kwon MA Comment on above: Skin cancer august. H/O: section Nghia Ronny Comment on above: 2001, 2003, 2008 H/O: section Rosetta Millan LPN Comment on above: 2001, 2003, 2008 H/O: section Wily Kwon MA Comment on above: 2001, 2003, 2008 History of appendectomy Leidy Amador Comment on above: 2005 Repair of inguinal hernia Sintia Gravius Repair of inguinal hernia Nghia Jefferson Repair of inguinal hernia Rosetta Millan LPN Repair of inguinal hernia Wily Kwon MA Uterine ablation 2011 Sintia Gravius Uterine ablation 2011 Nghia Ronny Uterine ablation 2011 Rosetta Millan LPN Uterine ablation 2011 Wily Kwon MA Plan of Treatment Date Care Activity Detail Author Start: 02-21-2029 Urine microalbumin profile [facility] Start: 03-09-2027 Screening for malignant neoplasm of cervix [facility] Start: 12-30-2026 Screening for malignant neoplasm of cervix [facility] Start: 05-06-2025 Screening for malignant neoplasm of breast [facility] Start: 10-17-2024 Influenza vaccination Influenza Vaccine (Season Ended) [facility] Start: 10-11-2024 Radex hand minimum 3 views [employer] Work Phone: Start: 04-06-2024 End: 07-04-2024 DBT Breast - bilateral screening Bilateral screening mammogram with tomosynthesis Imaging Routine Screening mammogram, encounter for Expected: 04/06/2024, Expires: 07/04/2024 [facility] Comment on above: Expected: 04/06/2024, Expires: Start: 03-08-2024 End: 03-08-2024 Patient encounter procedure 03/08/2024 4:50 PM EST Office Visit [facility] [address] [facility] [place] [address] Janett Liu MD [address] [facility] [place], [place] [id number] Encounter for gynecological examination without abnormal finding (Primary Dx); Screening mammogram, encounter for; Herpes gingivostomatitis [facility] Comment on above: Encounter for gynecological examination without abnormal finding (Primary Dx); Screening mammogram, encounter for; Herpes gingivostomatitis Start: 03-08-2024 End: 04-06-2024 THINPREP TIS PAP AND HPV MRNA E6/E7 WITH REFLEX TO HPV 16,18/45 THINPREP TIS PAP AND HPV MRNA E6/E7 WITH REFLEX TO HPV 16,18/45 Pathology and Cytology Routine Encounter for gynecological examination without abnormal finding Expected: 03/08/2024 (Approximate), Expires: 04/06/2024 [facility] Work Phone: Comment on above: Expected: 03/08/2024 (Approximate), Expi res: 04/06/2024 Start: 10-18-2023 Covid-19 Vaccine () Covid-19 Vaccine () [facility] Start: 10-18-2023 Influenza vaccination [facility] Start: 06-16-2023 End: 06-16-2023 Patient encounter procedure 06/16/2023 2:30 PM EDT Office Visit General Surgery [address] [address] Bishop Carpio MD [address] [place], [place] [id number] Follow up Parathyroid inject PTH intact and calcium General Surgery Comment on above: Follow up Parathyroid inject PTH intact and calcium Start: 06-02-2023 End: 09-01-2023 Calcium [Mass/volume] in Serum or Plasma CALCIUM, TOTAL Lab Routine Parathyroid abnormality (HCC) Expected: 06/02/2023, Expires: 09/01/2023 [facility] Work Phone: Comment on above: Expected: 06/02/2023, Expires: Start: 06-02-2023 End: 09-01-2023 Parathyrin.intact [Mass/volume] in Serum or Plasma PTH INTACT Lab Routine Parathyroid abnormality (HCC) Expected: 06/02/2023, Expires: 09/01/2023 [facility] Work Phone: Comment on above: Expected: 06/02/2023, Expires: 4 Start: 05-29-2023 Screening for malignant neoplasm of breast [facility] Start: 05-24-2023 Mammography MAMMOGRAM [facility] Start: 05-24-2023 Screening for malignant neoplasm of breast Mammogram Screening [facility] Start: 02-16-2023 Behavioral Health Screening Behavioral Health Screening [facility] Start: 02-16-2023 Depression Assessment Depression Assessment [facility] Start: 10-17-2022 Covid-19 Vaccine ( season) Covid-19 Vaccine ( season) [facility] Start: 10-17-2022 Influenza vaccination INFLUENZA (Season Ended) [facility] Start: 05-02-2022 Mammography MAMMOGRAM [facility] Start: 03-03-2022 Assay of thyroid stimulating hormone tsh TSH (THYROID STIMULATING HORMONE) (77813) [facility] Work Phone: Start: 03-03-2022 Lipid panel LIPID PANEL (60129) [facility] Work Phone: Start: 03-03-2022 Procedure Education Eprescribed prescriptions (G8553) [facility] Work Phone: Start: 03-03-2022 Provider Instructions for Treatment [facility] Work Phone: Start: 03-03-2022 Assay of free thyroxine THYROXINE FREE (T4) (09849) [facility]; [facility] Work Phone: Start: 02-16-2022 DEPRESSION ASSESSMENT DEPRESSION ASSESSMENT [facility] Start: 03-25-2021 COVID-19 VACCINE (5 - Booster) COVID-19 VACCINE (5 - Booster) [facility] Start: 10-12-2020 Procedure Education Eprescribed prescriptions (G8553) [facility]; [facility] Work Phone: Start: 10-12-2020 Provider Instructions for Treatment Follow up in 1 year or as needed [facility] Work Phone: Start: 10-02-2020 Procedure Education Eprescribed prescriptions (G8553) [facility]; [facility] Work Phone: Start: 10-02-2020 Provider Instructions for Treatment Follow up in 1 week after labs with a virtual [facility] Work Phone: Start: 09-04-2020 Patient Education Water in diet, brief version [facility] Work Phone: Start: 09-04-2020 Procedure Education Eprescribed prescriptions (G8553) [facility]; [facility] Work Phone: Start: 09-04-2020 Provider Instructions for Treatment Follow up if no improvement or if symptoms worsen [facility]; [facility] Work Phone: Start: 02-20-2020 Procedure Education Eprescribed prescriptions (G8553) [facility]; [facility] Work Phone: Start: 02-20-2020 Provider Instructions for Treatment [facility] Work Phone: Start: 02-20-2020 Culture bct isol&prsmptv id isolate ea urine URINE NICHOL CULTURE-IDENTIFICATN (28871) [facility]; [facility] Work Phone: Start: 11-22-2019 COLOGUARD (FIT-DNA) COLOGUARD (FIT-DNA) [facility] Start: 11-22-2019 Colonoscopy COLONOSCOPY [facility] Start: 11-22-2019 COLORECTAL CANCER SCREENING COLORECTAL CANCER SCREENING [facility] Start: 11-22-[address] COLONOGRAPHY [facility] Start: 11-22-2019 DIABETES SCREEN DIABETES SCREEN [facility] Start: 11-22-2019 Diabetes Screening Diabetes Screening [facility] Start: 11-22-2019 FECAL OCCULT BLOOD FECAL OCCULT BLOOD [facility] Start: 11-22-2019 Lipid panel Lipid Screening [facility] Start: 11-22-2019 LIPID SCREEN LIPID SCREEN [facility] Start: 11-22-2019 Screening for malignant neoplasm of colon [facility] Start: 11-22-2019 SIGMOIDOSCOPY SIGMOIDOSCOPY [facility] Start: 10-18-2019 Lipid panel LIPID PANEL (55892) [facility]; [facility] Work Phone: Start: 04-29-2019 Patient Education [facility]; [facility] Work Phone: Start: 04-29-2019 Procedure Education Eprescribed prescriptions (G8553) [facility]; [facility] Work Phone: Start: 04-18-2019 25 hydroxy includes fractions if performed CALCIFIDIOL (67517) VIT D 25 [facility]; [facility] Work Phone: Start: 04-15-2019 Procedure Education Eprescribed prescriptions (G8553) [facility]; [facility] Work Phone: Start: 04-15-2019 Provider Instructions for Treatment [facility]; [facility] Work Phone: Start: 07-17-2018 PAP TESTING PAP TESTING [facility] Start: 07-17-2018 Screening for malignant neoplasm of cervix Pap Testing [facility] Start: 04-12-2018 Patient Education Sinusitis *: sinus infection [facility] Work Phone: Start: 04-12-2018 Procedure Education Eprescribed prescriptions (G8553) [facility] Work Phone: Start: 04-12-2018 Provider Instructions for Treatment Follow up if no improvement or if symptoms worsen [facility] Work Phone: Start: 07-24-2017 Procedure Education Eprescribed prescriptions (G8553) [facility] Work Phone: Start: 02-17-2017 Procedure Education Eprescribed prescriptions (G8553) [facility] Work Phone: Start: 02-17-2017 Provider Instructions for Treatment Follow up if no improvement or if symptoms worsen [facility] Work Phone: Start: 07-17-2016 Screening for malignant neoplasm of cervix Cervical Cancer Screening [facility] Start: 07-04-2016 Procedure Education Eprescribed prescriptions (G8553) [facility] Work Phone: Start: 07-04-2016 Provider Instructions for Treatment Follow up if no improvement or if symptoms worsen [facility] Work Phone: Start: 07-04-2016 Sedimentation rate rbc non-automated SED RATE ERYTHROCYTE (61196) [facility] Work Phone: Start: 07-04-2016 Comprehensive metabolic panel Metabolic Panel, Comprehensive (21767) [facility] Work Phone: Start: 07-04-2016 Acute hepatitis panel HEPATITIS PANEL (89907) [facility] Work Phone: Start: 02-04-2016 Procedure Education Eprescribed prescriptions (G8553) [facility] Work Phone: Start: 02-04-2016 Provider Instructions for Treatment Follow up if no improvement or if symptoms worsen [facility] Work Phone: Start: 02-04-2016 Urnls dip stick/tablet rgnt non-auto w/o micrscp Urinalysis, Office (82326) [facility] Work Phone: Start: 05-01-2015 Provider Instructions for Treatment Follow up if no improvement or if symptoms worsen [facility] Work Phone: Start: 09-05-2014 Provider Instructions for Treatment [facility] Work Phone: Start: 08-30-2014 1 25 dihydroxy includes fractions if performed VITAMIN D, 1, 25-DIHYDROXY (55824) [facility] Work Phone: Start: 07-17-2014 Assay of thyroid stimulating hormone tsh TSH (39404) [facility]; [facility] Work Phone: Start: 07-17-2014 Thyrotropin Qn TSH (59880) [facility] Work Phone: Start: 07-17-2014 Lipid panel LIPID PANEL (20331) [facility] Work Phone: Start: 07-17-2014 1 25 dihydroxy includes fractions if performed VITAMIN D, 1, 25-DIHYDROXY (82649) [facility] Work Phone: Start: 07-07-2014 Provider Instructions for Treatment [facility] Work Phone: Start: 06-06-2014 Provider Instructions for Treatment Follow up in 3 months [facility] Work Phone: Start: 06-06-2014 Assay of thyroid stimulating hormone tsh TSH (THYROID STIMULATING HORMONE) (66778) [facility]; [facility] Work Phone: Comment on above: to be done in August Start: 06-06-2014 Thyrotropin Qn TSH (THYROID STIMULATING HORMONE) (84462) [facility] Work Phone: Comment on above: to be done in August Start: 06-06-2014 25 hydroxy includes fractions if performed CALCIFEDIOL (22631) [facility] Work Phone: Comment on above: Around September 05 Start: 05-26-2014 Provider Instructions for Treatment Follow up in 1 week [facility] Work Phone: Start: 05-26-2014 25 hydroxy includes fractions if performed CALCIFEDIOL (13006) [facility] Work Phone: Start: 05-26-2014 Assay of thyroid stimulating hormone tsh TSH (26175) [facility]; [facility] Work Phone: Start: 05-26-2014 Thyrotropin Qn TSH (12637) [facility] Work Phone: Start: 05-26-2014 Blood count complete auto&auto difrntl wbc CBC, Platelets & Auto Diff (65128) [facility] Work Phone: Start: 05-26-2014 Lipid panel Lipid Panel (50168) [facility] Work Phone: Start: 05-26-2014 Comprehensive metabolic panel Metabolic Panel, Comprehensive (72387) [facility] Work Phone: Start: 2004 HPV TESTING HPV TESTING [facility] Start: 2004 Screening for malignant neoplasm of cervix HPV Testing [facility] Start: 11-22-1995 Screening for malignant neoplasm of cervix Pap Smear [facility] Start: 1993 Hepatitis B Vaccine (1 of 3 - 19+ 3-dose series) Hepatitis B Vaccine (1 of 3 - 19+ 3-dose series) [facility] Start: 1993 Urine microalbumin profile DTAP,TDAP,TD (1 - Tdap) [facility] Start: 1992 Anxiety Screening Anxiety Screening [facility] Start: 1992 Depression Screening Depression Screening [facility] Start: 1992 HEPATITIS C SCREENING HEPATITIS C SCREENING [facility] Start: 1992 Hepatitis C screening Hepatitis C Screening [facility] Start: 1992 HIV SCREENING HIV SCREENING [facility] Start: 1992 HIV screening HIV Screening [facility] Start: 1974 HEPATITIS B (1 of 3 - 3-dose series) HEPATITIS B (1 of 3 - 3-dose series) [facility] Start: 1974 Screening for malignant neoplasm of colon [facility] End: 07-01-2024 US Abdomen NM INJ PARATHYROID ADENOMA NONIMAGING Radiology Routine Parathyroid abnormality (HCC) 1 Occurrences starting 06/02/2023 until 07/01/2024 [facility] Work Phone: Comment on above: 1 Occurrences starting 06/02/2023 until 07/01/2024 [facility] Work Phone: [facility] Work Phone: Sinusitis, bacte rial : Sinusitis *: sinus infection [facility] Work Phone: [facility] Work Phone: [facility]; [facility] Work Phone: [facility]; [facility] Work Phone: [facility]; [facility] Immunization Date Immunization Notes Care Provider Luis dorsey 03-19-2019 influenza virus vaccine, unspecified formulation Nurse Wstr Work Phone: [facility] 02-21-2019 tetanus toxoid, redu dejan diphtheria toxoid, and acellular pertussis vaccine, adsorbed [facility] Payers Date Payer Category Payer Self-pay [id number] 2018 Private Health Insurance [id number] 2018 Unknown 2008 Unknown [id number] 1974 Unknown [id number] 1974 Unknown [id number] Unknown [id number] [id number] Unknown [id number] [id number] [id number] Unknown [id number] [id number] [id number] Unknown [id number] 2.16.8 [id number] Unknown [id number] [id number] [id number] Unknown [id number] [id number] [id number] Social History Date Type Detail Facility Start: 01-22-2020 End: 06-02-2023 Caffeine Use Unknown if ever smoked [facility] Work Phone: Comment on above: 1 cup coffee qd Exercise History: Exercises regularly. [facility] Work Phone: Comment on above: walking Exercise History: Exercise History: [facility]; [facility] Work Phone: Comment on above: walking Start: 1975 Sex Assigned At Female [facility] Start: 11-24-2013 End: 10-11-2024 Tobacco smoking status OKIS Never smoked tobacco [facility] Work Phone: Start: 06-09-2014 End: 06-16-2023 Alcohol intake Current non-drinker of alcohol (finding) [facility] Start: 1975 Sex Assigned At Not on file [facility] Start: 01-22-2020 End: 10-11-2024 Area Deprivation Index [facility] National Score (1-100), lower number is lower risk Not on file [facility] Start: 09-16-2022 End: 06-02-2023 Tobacco use and exposure Smokeless tobacco non-user [facility] Start: 12-23-2022 End: 03-08-2024 Alcoholic beverage intake Current drinker of alcohol (finding) [facility] Start: 09-15-2022 Gender identity Identifies as female gender (finding) [facility] Start: 09-15-2022 Sexual orientation Heterosexual (fin bret) [facility] Tobacco smoking stat [facility] Unknown if ever smoked [facility] Work Phone: Goals Date Patient Goal Desired Activity /State Functional Status Date Assessment Result Facility 11-24-2013 Are you deaf, or do you have serious difficulty hearing No 11/24/2013 11:31 AM EDT Zoya Wilks MA [facility] 11-24-2013 Are you blind, or do you have serious difficulty seeing, even when wearing glasses No 11/24/2013 11:31 AM EDT Zoya Wilks MA [facility] 11-24-2013 Do you have serious difficulty walking or climbing stairs No 11/24/2013 11:31 AM EDT Zoya Wilks MA [facility] 11-24-2013 Do you have difficul ty dressing or bathing No 11/24/2013 11:31 AM EDT Zoya Wilks MA [facility] 11-24-2013 Because of a physica l, mental, or emotional condition, do you have difficulty doing errands alone such as visiting a physician's office or shopping No 11/24/2013 11:31 AM EDT Zoya Wilks MA [facility] Mental Status Date Assessment Result Facility 10-11-2024 Cognitive Function [facility] [employer] Work Phone: 11-24-2013 Because of a physica l, mental, or emotional condition, do you have serious difficulty concentrating, remembering, or making decisions No 11/24/2013 11:31 AM EDZoya Billy MA [facility] Clinical Notes 05-23-2022 to 12-05-2024 Note Date & Type Note Facility 12-05-2024 Progress note [facility] 11-07-2024 Progress note [facility] 10-10-2024 Evaluation note Diagnosis Onset Date Resolution Cervicogenic headache acute Aug us2024 2:30pm Segmental and somatic dysfunction of cervical region acute October 10 2:30pm Segmental and somatic dysfunction of lumbar region acute October 10 2:30pm Segmental and somatic dysfunction of pelvic region acute October 10 2:30pm Segmental and somatic dysfunction of thoracic region acute October 10 2:30pm Segmental and somatic dysfunction of cervical region acute November 07, 2024 11:30am Segmental and somatic dysfunction of lumbar region acute November 07, 2024 11:30am Segmental and somatic dysfunction of pelvic region acute November 07, 2024 11:30am Segmental and somatic dysfunction of thoracic region acute November 07, 2024 11:30am [facility] [facility] Work Phone: 1(512) 714-781608-25-2025 Evaluation note* Diagnosis Onset Date Resolution Status Admit Date Cervicogenic headache acute Sep ust 2024 2:30pm Segmental and somatic dysfunction of cervical region acute A ugust 2024 2:30pm Segmental and somatic dysfunction of lumbar region acute Sep ust 2024 2:30pm Segmental and somatic dysfunction of pelvic region acute Sep ust 2024 2:30pm Segmental and somatic dysfunction of thoracic region acute A ugust 2024 2:30pm Segmental and somatic dysfunction of cervical region acute S eptember 2024 11:30am Segmental and somatic dysfunction of lumbar region acute Sep tember 2024 11:30am Segmental and somatic dysfunction of pelvic region acute Sep tember 2024 11:30am Segmental and somatic dysfunction of thoracic region acute S eptember 2024 11:30am Cervicogenic headache acute Nov mynor2024 8:58am Segmental and somatic dysfunction of cervical region acute O ctober 2024 8:58am Segmental and somatic dysfunction of lumbar region acute Nov mynor 2024 8:58am Segmental and somatic dysfunction of pelvic region acute Oct mynor 2024 8:58am Segmental and somatic dysfunction of thoracic region acute O ctober 2024 8:58am [facility] Work Phone: 1(483) 282-215405-07-2025 History of Present illness Narrative* Cleo Young, RT(R) - 06/22/2024 9:45 AM EDT Radiology Service Progress Note PATIENT NAME: Deb Osei DATE OF SERVICE: June 22, 2024 TIME: 10:03 AM PATIENT IDENTITY VERIFICATION COMPLETED USING TWO (2) IDENTIFIERS: Name and Date of confirmedby patient verbally. FALL SCREENING: Has the patient had 2 falls in the last year or 1 fall with injury or currently using an Ambulatory Assistive Device (Walker, Cane, Wheelchair, Crutches, etc.)? No PATIENT GENDER DATA: Assigned female at . status: : No status:NO. PATIENT RELEVANT IMPLANT DATA REVIEWED: Not Applicable PATIENT PRESENTS WITH AN IMPLANTABLE OR ATTACHED TOURIST INFORMATION ASSISTANT: No RADIOLOGY DEPARTMENT: Mammography PERIPHERAL IV DATA: Not applicable SIGNED BY: RT Ethan(R) June 22, 2024 10:03 AM [facility] NoteHNO ID: [id number] Author: CLEO YOUNG RT(R) Service: ? Author Type: Technologist Type: Progress Notes Filed: 06/22/2024 10:13 Note Text: Radiology Service Progress Note PATIENT NAME: Deb Osei DATE OF SERVICE: June 22, 2024 TIME: 10:03 AM PATIENT IDENTITY VERIFICATION COMPLETED USING TWO (2) IDENTIFIERS: Name and Date of confirmed by patient verbally. FALL SCREENING: Has the patient had 2 falls in the last year or 1 fall with injury or currently using an Ambulatory Assistive Device (Walker, Cane, Wheelchair, Crutches, etc.)? No PATIENT GENDER DATA: Assigned female at . status: : No status: NO. PATIENT RELEVANT IMPLANT DATA REVIEWED: Not Applicable PATIENT PRESENTS WITH AN IMPLANTABLE OR ATTACHED TOURIST INFORMATION ASSISTANT: No RADIOLOGY DEPARTMENT: Mammography PERIPHERAL IV DATA: Not applicable SIGNED BY: RT Ethan(Rory) June 22, 2024 10:03 [facility]03-21-2025 History of Present illness Narrative* Mercedes Avalos RT(R) - 05/06/2024 1:20 PM EDT Radiology Service Progress Note PATIENT NAME: Deb Osei DATE OF SERVICE: May 06, 2024 TIME: 1:23 PM PATIENT IDENTITY VERIFICATION COMPLETED USING TWO (2) IDENTIFIERS: Name and Date of confirmedby patient verbally. FALL SCREENING: Has the patient had 2 falls in the last year or 1 fall with injury or currently using an Ambulatory Assistive Device (Walker, Cane, Wheelchair, Crutches, etc.)? No PATIENT GENDER DATA: Assigned female at . status: : No status:NO. PATIENT RELEVANT IMPLANT DATA REVIEWED: Yes PATIENT PRESENTS WITH AN IMPLANTABLE OR ATTACHED TOURIST INFORMATION ASSISTANT: No RADIOLOGY DEPARTMENT: Mammography PERIPHERAL IV DATA: Not applicable SIGNED BY: RT Gee(Rory) May 06, 2024 1:23 PM [facility]25 NoteHNO ID: [id number] Author: MERCEDES AVALOS RT (R) Service: ? Author Type: Technologist Type: Progress Notes Filed: 05/06/2024 13:23 Note Text: Radiology Service Progress Note PATIENT NAME: Deb Osei DATE OF SERVICE: May 06, 2024 TIME: 1:23 PM PATIENT IDENTITY VERIFICATION COMPLETED USING TWO (2) IDENTIFIERS: Name and Date of confirmed by patient verbally. FALL SCREENING: Has the patient had 2 falls in the last year or 1 fall with injury or currently using an Ambulatory Assistive Device (Walker, Cane, Wheelchair, Crutches, etc.)? No PATIENT GENDER DATA: Assigned female at . status: : No status: NO. 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 Going to [place], [place] in early Mar. [employer] complaints: no Changes in healthsince last visit: yes thyroid nodules, parathyroid nodule. Plan to monitor yearly. Surgeries or hospitalizations since last visit: no control method: Tubal ligation Changes in FH: yes Last pap: was normal 2021 Last mammogram: was normal 05/2022 Colon Cancer Screening: Done 02/2020 10 year plan. Other: History: Past Medical History: Diagnosis Date Basal cell carcinoma of scalp and skin of neck Dense breast tissue on mammogram Past Surgical History: Procedure Laterality Date APPENDECTOMY SECTION, LOW TRANSVERSE 11/26/2001, 07/01/2003, 11/27/2008 DILATION AND CURETTAGE OF UTERUS 11/26/2000 ENDOMETRIAL ABLATION 05/2010 HERNIA REPAIR 2009 RECTAL SURGERY fissure SKIN CANCER EXCISION TUBAL LIGATION 11/27/2008 Family History Problem Relation Name Age of Onset Hypertension Mother Margie Morley Hypertension Father Rick Morley Melanoma Sister Tania Gaston 42 Migraines Sister Tania Gaston Leukemia Mother's Sister Nathalie Wright uncertain type Colon cancer Maternal Grandmother Jeni Wright 70 Diabetes Maternal Grandmother Jeni Wright Hypertension Maternal Grandmother Jeni Wright Heart failure Maternal Grandfather Varghese Wright Heart disease Paternal Grandmother Heart disease Paternal Grandfather Social History Tobacco Use Smoking status: Never Smokeless tobacco: Never Vaping Use Vaping status: Never Used Substance Use Topics Alcohol use: Yes Alcohol/week: 1.0 standard drink of alcohol Types: 1 Glasses of wine per week Drug use: Never Allergies: No Known Allergies Medications: Current Outpatient Medications on File Prior to Visit Medication Sig Dispense Refill [DISCONTINUED] ondansetron (Zofran) 8 MG tablet take 1 tablet by mouth once daily if needed for nausea and vomiting No current facility-administered medications on file prior to visit. ROS: Review of Systems Constitutional: Negative. Respiratory: Negative. Cardiovascular: Negative. Gastrointestinal: Negative. Genitourinary: Negative. Psychiatric/Behavioral: Negative. All other systems reviewed and are negative. Physical exam: Visit Vitals BP 104/60 Ht 5' 9 Wt 175 lb LMP 02/08/2024 BMI 25.84 kg/m OB Status Having periods Smoking Status Never BSA 1.97 m Physical Exam Vitals and nursing note reviewed. Constitutional: Appearance: Normal appearance. She is normal weight. Cardiovascular: Rate and Rhythm: Normal rate and regular rhythm. Heart sounds: Normal heart sounds. Pulmonary: Effort: Pulmonary effort is normal. Breath sounds: Normal breath sounds. Chest: Breasts: Breasts are symmetrical. Right: Normal. Left: Normal. Abdominal: General: Abdomen is flat. Bowel sounds are normal. Palpations: Abdomen is soft. Genitourinary: General: Normal vulva. Vagina: Normal. Cervix: Normal. Uterus: Normal. Adnexa: Right adnexa normal and left adnexa normal. Musculoskeletal: General: Normal range of motion. Cervical back: Normal range of motion and neck supple. Lymphadenopathy: Upper Body: Right upper body: No supraclavicular or axillary adenopathy. Left upper body: No supraclavicular or axillary adenopathy. Skin: General: Skin is warm and dry. Neurological: General: No focal deficit present. Mental Status: She is alert and oriented to person, place, and time. Psychiatric: Mood and Affect: Mood normal. Behavior: Behavior normal. Thought Content: Thought content normal. Judgment: Judgment normal. Assessment and Plan: 1. Annual exam 2. Self breast awareness/exam discussed: Yes 3. Diet and exercise discussed: Yes 4. Wt control discussed: Yes 5. Perimenopause discussed; Yes Deb was seen today for annual exam. Diagnoses and all orders for this visit: Encounter for gynecological examination without abnormal finding (Primary) - THINPREP TIS PAP AND HPV MRNA E6/E7 WITH REFLEX TO HPV 16,18/45; Future - THINPREP TIS PAP AND HPV MRNA E6/E7 WITH REFLEX TO HPV 16,18/45 Screening mammogram, encounter for - Bilateral screening mammogram with tomosynthesis; Future Pap done. Due for mammogram. Reviewed perimenopausal symptoms, indications for treatment. Discussed good diet, exercise, calcium, vitamin d. Follow up One year annual documented [facility] [id number] NoteHNO ID: [id number] Author: BISHOP CARPIO MD Service: ? Author Type: Physician Type: Progress Notes Filed: 06/16/2023 14:52 Note Text: Subjective:The patient is a 47 year old female with a complaint of with an ultrasound from [facility] which showed multinodular goiter which was stable and did not need any fine-needle aspirations but a 1.8 cm x 0.8 cm mass presumed to be a possible parathyroid inferior on the left side Obtained a calcium level which was 9.7 and a PTH which was 45 both of these are within normal range. Obtained a sestamibi scan which showed increased activity in the left inferior thyroid area. Objective:Last menstrual period 11/10/2013. Neck is supple no hard palpable nodules are identified. No lymphadenopathy is identified. Assessment:Parathyroid abnormality (hcc) (primary encounter diagnosis) Plan: At this point and get a referral to Dr. Pena up at the [facility] for second opinion on what we should do here.[facility]04-30-2024 History of Present illness Narrative* Bishop Carpio MD - 06/16/2023 2:44 PM EDT Subjective:The patient is a 47 year old female with a complaint of with an ultrasound from [facility] which showed multinodular goiter which was stable and did not need any fine-needle aspirations but a 1.8 cm x 0.8 cm mass presumed to be a possible parathyroid inferior on the left side Obtained a calcium level which was 9.7 and a PTH which was 45 both of these are within normal range. Obtained a sestamibi scan which showed increased activity in the left inferior thyroid area. Objective:Last menstrual period 11/10/2013. Neck is supple no hard palpable nodules are identified. No lymphadenopathy is identified. Assessment:Parathyroid abnormality (hcc) (primary encounter diagnosis) Plan: At this point and get a referral to Dr. Pena up at the main [place] for second opinion on what we should do here. documented in this [facility] NoteHNO ID: [id number] Author: BISHOP CARPIO MD Service: ? Author Type: Physician Type: Progress Notes Filed: 06/03/2023 06:16 Note Text: HISTORY AND PHYSICAL Deb Osei 1975 REFERRING PHYSICIAN: Effie Bran CNP CHIEF COMPLAINT: Consult (Parathyroid nodule) HPI: The patient is a 47 year old female with a complaint of with an ultrasound from [facility] which showed multinodular goiter which was stable and did not need any fine-needle aspirations but a 1.8 cm x 0.8 cm mass presumed to be a possible parathyroid inferior on the left side. I do not have any labs to confirm whether or not she has elevated calcium or elevated PTH. And no other imaging such as a sestamibi scan has been completed. Back in 2019 I performed fine-needle aspirations of both the left and right side. Came back as a colloid nodule. The patient has had no increased in kidney stones she has had no depression no psychological overtones The patient is being seen by me today at the request of Dr. Effie Bran CNP for my opinion and advice regarding Parathyroid abnormality (hcc) (primary encounter diagnosis). PAST MEDICAL HISTORY Diagnosis Date Hemorrhoid PAST SURGICAL HISTORY Procedure Laterality Date DELIVERY ONLY , low transverse DELIVERY ONLY , low transverse DELIVERY ONLY , low transverse LAPAROSCOPIC APPENDECTOMY 05/26/2006 LIG/TRNSXJ FLP TUBE ABDL/VAG APPR UNI/BI Tubal ligation MOHS forehead x2 REPAIR FIRST ABDOMINAL WALL HERNIA 02/16/2009 Hernia repair, incisional No current outpatient medications on file. No current facility-administered medications for this visit. ALLERGIES: Patient has no known allergies. PERSONAL HISTORY: Social History Tobacco Use Smoking status: Never Smokeless tobacco: Never Vaping Use Vaping Use: Never used Substance Use Topics Alcohol use: No Drug use: No FAMILY HISTORY: FAMILY HISTORY Problem Relation Age of Onset Allergies Brother Colon Cancer Maternal Grandmother Diabetes Maternal Grandmother Coronary Artery Disease Maternal Grandmother Coronary Artery Disease Maternal Grandfather REVIEW OF SYMPTOMS: negative except as noted above PHYSICAL EXAMINATION: General: The patient is 47 year old female, well nourished, well hydrated in no acute distress. The patient is oriented to time, place, and person. VITALS: Blood pressure 145/79, pulse 63, height 175.3 cm (5' 9), weight 74.4 kg (164 lb), last menstrual period 11/10/2013. HEENT: Normal cephalic, ataumatic, pupils are equally round, sclera are anicteric, mucous membranes are moist, oropharynx is clear. Neck has no masses, asymmetry or lymphadenopathy. Thyroid is unremarkable. Respiratory: Clear to auscultation and percussion. Normal respiratory excursion and pattern. Cardiac: Examination is regular rate and rhythm. Abdominal exam: Soft, nontender, with no palpable masses. No hepatosplenomegaly. No palpable hernias. Rectal exam: exam deferred Extremities: no clubbing, cyanosis or edema. No adenopathy. Other: LABORATORY VALUES: As Noted RADIOLOGIC STUDIES: As Noted Assessment IMPRESSION: Parathyroid abnormality (hcc) (primary encounter diagnosis) PLAN: Will obtain a calcium level as well as a PTH. In addition I am going to obtain a sestamibi scan I will see her back once these are completed. Diagnoses: (E21.5) Parathyroid abnormality (HCC) (primary encounter diagnosis) A letter was sent to Dr. Effie Bran CNP indicating the above finding for this patient. Return to Clinic: The patient is instructed to follow-up with me after the testing has been completed. Bishop Carpio III [facility]04-16-2024 History of Present illness Narrative* Bishop Carpio MD - 06/02/2023 2:37 PM EDT HISTORY AND PHYSICAL Deb Osei 1975 REFERRING PHYSICIAN: Effie Bran CNP CHIEF COMPLAINT: Consult (Parathyroid nodule) HPI: The patient is a 47 year old female with a complaint of with an ultrasound from [facility] which showed multinodular goiter which was stable and did not need any fine-needle aspirations but a 1.8 cm x 0.8 cm mass presumed to be a possible parathyroid inferior on the left side. I do not have any labs to confirm whether or not she has elevated calcium or elevated PTH. And no other imaging such as a sestamibi scan has been completed. Back in 2019 I performed fine-needle aspirations of both the left and right side. Came back as a colloid nodule. The patient has had no increased in kidney stones she has had no depression no psychological overtones The patient is being seen by me today at the request of Dr. Effie Bran CNP for my opinion and advice regarding Parathyroid abnormality (hcc) (primary encounter diagnosis). PAST MEDICAL HISTORY Diagnosis Date Hemorrhoid PAST SURGICAL HISTORY Procedure Laterality Date DELIVERY ONLY , low transverse DELIVERY ONLY , low transverse DELIVERY ONLY , low transverse LAPAROSCOPIC APPENDECTOMY 05/26/2006 LIG/TRNSXJ FLP TUBE ABDL/VAG APPR UNI/BI Tubal ligation MOHS forehead x2 REPAIR FIRST ABDOMINAL WALL HERNIA 02/16/2009 Hernia repair, incisional No current outpatient medications on file. No current facility-administered medications for this visit. ALLERGIES: Patient has no known allergies. PERSONAL HISTORY: Social History Tobacco Use Smoking status: Never Smokeless tobacco: Never Vaping Use Vaping Use: Never used Substance Use Topics Alcohol use: No Drug use: No FAMILY HISTORY: FAMILY HISTORY Problem Relation Age of Onset Allergies Brother Colon Cancer Maternal Grandmother Diabetes Maternal Grandmother Coronary Artery Disease Maternal Grandmother Coronary Artery Disease Maternal Grandfather REVIEW OF SYMPTOMS: negative except as noted above PHYSICAL EXAMINATION: General: The patient is 47 year old female, well nourished, well hydrated in no acute distress. Thepatient is oriented to time, place, and person. VITALS: Blood pressure 145/79, pulse 63, height 175.3 cm (5' 9), weight 74.4 kg (164 lb), last menstrual period 11/10/2013. HEENT: Normal cephalic, ataumatic, pupils are equally round, sclera are anicteric, mucous membranesare moist, oropharynx is clear. Neck has no masses, asymmetry or lymphadenopathy. Thyroid is unremarkable. Respiratory: Clear to auscultation and percussion. Normal respiratory excursion and pattern. Cardiac: Examination is regular rate and rhythm. Abdominal exam: Soft, nontender, with no palpable masses. No hepatosplenomegaly. No palpable hernias. Rectal exam: exam deferred Extremities: no clubbing, cyanosis or edema. No adenopathy. Other: LABORATORY VALUES: As Noted RADIOLOGIC STUDIES: As Noted Assessment IMPRESSION: Parathyroid abnormality (hcc) (primary encounter diagnosis) PLAN: Will obtain a calcium level as well as a PTH. In addition I am going to obtain a sestamibi scan I will see her back once these are completed. Diagnoses: (E21.5) Parathyroid abnormality (HCC) (primary encounter diagnosis) A letter was sent to Dr. Effie Bran CNP indicating the above finding for this patient. Return to Clinic: The patient is instructed to follow-up with me after the testing has been completed. Bishop Carpio III, MD [facility] Miscellaneous Notes* Telephone Encounter - Tamar Spear RN - 05/18/2023 11:27 AM EDT Received request from Effie Bran at [facility], requesting the last thyroid biopsy and pathology that was performed by Dr. Carpio. Faxed the 2019 FNA and pathology. Tamar Spear RN [facility]23 Miscellaneous Notes* Letter - Mammography Coordinator - 05/26/2022 9:50 AM EDT [facility] [address] [place] [place] [address] May 26, 2022 PID: [id number] Deb Osei [address] [place] [address] Dear Ms. Osei, We are pleased to inform you that the results of your recent breast imaging exam on 05/23/2022 are normal. Early detection of cancer is very important. We also understand recommendations regarding breast cancer screening are controversial. Please discuss with your primary care provider which strategy is best for you and whether a mammogram is right for you. Your imaging studies and report will be kept [facility] as part of your permanent medical record and are available for your continuing care. Thank you for allowing us to help in meeting your health care needs. Sincerely, Dr. Cain Interpreting Radiologist [facility] (Normal over 40) documented in this encounter[facility]04-07-2023 History of Present illness Narrative* Stella Miller, RT(R) - 05/23/2022 3:00 PM EDT Radiology Service Progress Note PATIENT NAME: Deb Osei DATE OF SERVICE: May 23, 2022 TIME: 3:00 PM PATIENT IDENTITY VERIFICATION COMPLETED USING TWO (2) IDENTIFIERS: Name and Date of confirmedby patient verbally. FALL SCREENING: Has the patient had 2 falls in the last year or 1 fall with injury or currently using an Ambulatory Assistive Device (Walker, Cane, Wheelchair, Crutches, etc.)? No PATIENT GENDER DATA: Female. status: : No status: NO. PATIENT RELEVANT IMPLANT DATA REVIEWED: Yes RADIOLOGY DEPARTMENT: Mammography PERIPHERAL IV DATA: Not applicable SIGNED BY: RT Lamine(R) May 23, 2022 3:00 PM documented in [facility] noteNo assessment information availableWSt. Francis Hospital Work Phone: Evaluation note* Diagnosis Onset Date Resolution Status Neck pain acute Segmental and somatic dysfunction of cervical region acute Segmental and somatic dysfunction of lumbar region acute Segmental and somatic dysfunction of pelvic region acute Segmental and somatic dysfunction of thoracic region acute [facility] Work Phone: Evaluation note* Diagnosis Parathyroid abnormality (HCC)- Primary Unspecified disorder of parathyroid gland documented in this encounter [facility]* Diagnosis Parathyroid abnormality (HCC)- Primary Unspecified disorder of parathyroid gland documented in this encounter [facility] note* Diagnosis Encounter for gynecological examination without abnormal finding- Primary Screening mammogram, encounter for [facility]* Diagnosis Onset Date Resolution Status Admit Date Cervicogenic headache acute Sep 2024 2:30pm Segmental and somatic dysfunction of cervical region acute October 10 2:30pm Segmental and somatic dysfunction of lumbar region acute Sep 2024 2:30pm Segmental and somatic dysfunction of pelvic region acute Sep 2024 2:30pm Segmental and somatic dysfunction of thoracic region acute October 10 2:30pm Back pain noneactive October 10 2:30pm [facility] Work Phone: Instructions* Name Dates Details How to Access [email or web address] Online using Patient Portal and [employer] Apps Indication:Nonsmoker Start:12-Oct-2020 Instruction Type:Patient Education Patient Instructions Indication:Nonsmoker Start:12-Oct-2020 Instruction Type:Provider Instructions for Treatment Patient Instructions Indication:BMI 24.0-24.9, adult Start:02-Oct-2020 Instruction Type:Provider Instructions for Treatment How to Access Health Informa tion Online using Patient Portal and [employer] Apps Indication:BMI 24.0-24.9, adult Start:02-Oct-2020 Instruction Type:Patient Education Patient Instructions Indication:BMI 24.0-24.9, adult Start:04-Sep-2020 Instruction Type:Provider Instructions for Treatment How to Access Health Informa tion Online using Patient Portal and [employer] Apps Indication:BMI 24.0-24.9, adult Start:04-Sep-2020 Instruction Type:Patient Education Patient Instructions Indication:Nonsmoker Start:20-Feb-2020 Instruction Type:Provider Instructions for Treatment How to Access Health Informa tion Online using Patient Portal and [employer] Apps Indication:Nonsmoker Start:20-Feb-2020 Instruction Type:Patient Education How to access health informa tion online Indication:Nonsmoker Start:29-Apr-2019 Instruction Type:Patient Education How to access health informa tion online - Detail Indication:Nonsmoker Start:29-Apr-2019 Instruction Type:Patient Education Patient Instructions Indication:BMI 24.0-24.9, adult Start:29-Apr-2019 Instruction Type:Provider Instructions for Treatment How to access health informa tion online Indication:Nonsmoker Start:15-Apr-2019 Instruction Type:Patient Education How to access health informa tion online - Detail Indication:Nonsmoker Start:15-Apr-2019 Instruction Type:Patient Education Patient Instructions Indication:Nonsmoker Start:15-Apr-2019 Instruction Type:Provider Instructions for Treatment How to access health informa tion online Indication:Nonsmoker Start:12-Apr-2018 Instruction Type:Patient Education How to access health informa tion online - Detail Indication:Nonsmoker Start:12-Apr-2018 Instruction Type:Patient Education Patient Instructions Indication:Facial pressure Start:12-Apr-2018 Instruction Type:Provider Instructions for Treatment How to access health informa tion online Indication:Hematuria Start:24-Jul-2017 Instruction Type:Patient Education How to access health informa tion online - Detail Indication:Hematuria Start:24-Jul-2017 Instruction Type:Patient Education Patient Instructions Indication:Hematuria Start:24-Jul-2017 Instruction Type:Provider Instructions for Treatment How to access health informa tion online Indication:BMI between 19-24,adult Start:17-Feb-2017 Instruction Type:Patient Education How to access health informa tion online - Detail Indication:BMI between 19-24,adult Start:17-Feb-2017 Instruction Type:Patient Education Patient Instructions Indication:Sinusitis, bacterial Start:17-Feb-2017 Instruction Type:Provider Instructions for Treatment DISCONTINUED - CALCIFEDIOL ( 48159) Indication:Screening for thyroid disorder Start:08-Jul-2016 Instruction Type:Patient Education DISCONTINUED - METABOLIC REBOLLEDO EL, COMPREHENSIVE (95859) Indication:Screening for thyroid disorder Start:08-Jul-2016 Instruction Type:Patient Education DISCONTINUED - LIPID PANEL ( 20802) Indication:Screening for thyroid disorder Start:08-Jul-2016 Instruction Type:Patient Education DISCONTINUED - CBC, PLATELET S & AUT DIFF (02962) Indication:Screening for thyroid disorder Start:08-Jul-2016 Instruction Type:Patient Education DISCONTINUED - TSH (99467) Indication:Screening for thyroid disorder Start:08-Jul-2016 Instruction Type:Patient Education How to access health informa tion online Indication:Rash Start:04-Jul-2016 Instruction Type:Patient Education How to access health informa tion online - Detail Indication:Rash Start:04-Jul-2016 Instruction Type:Patient Education Patient Instructions Indication:Rash Start:04-Jul-2016 Instruction Type:Provider Instructions for Treatment How to access health informa tion online Indication:UTI symptoms Start:04-Feb-2016 Instruction Type:Patient Education How to access health informa tion online - Detail Indication:UTI symptoms Start:04-Feb-2016 Instruction Type:Patient Education Patient Instructions Indication:UTI symptoms Start:04-Feb-2016 Instruction Type:Provider Instructions for Treatment Patient Instructions Indication:Screening for thyroid disorder Start:05-Sep-2014 Instruction Type:Provider Instructions for Treatment Patient Instructions Indication:Acute sinusitis, unspecified Start:07-Jul-2014 Instruction Type:Provider Instructions for Treatment Patient Instructions Indication:Vitamin D deficiency Start:06-Jun-2014 Instruction Type:Provider Instructions for Treatment [facility]; [facility] Work Phone: Instructions* Name Dates Details How to Access Health Informa tion Online using Patient Portal and [employer] Apps Indication:Nonsmoker Start:12-Oct-2020 Instruction Type:Patient Education Patient Instructions Indication:Nonsmoker Start:12-Oct-2020 Instruction Type:Provider Instructions for Treatment Patient Instructions Indication:BMI 24.0-24.9, adult Start:02-Oct-2020 Instruction Type:Provider Instructions for Treatment How to Access Health Informa tion Online using Patient Portal and [employer] Apps Indication:BMI 24.0-24.9, adult Start:02-Oct-2020 Instruction Type:Patient Education Patient Instructions Indication:BMI 24.0-24.9, adult Start:04-Sep-2020 Instruction Type:Provider Instructions for Treatment How to Access Health Informa tion Online using Patient Portal and [employer] Apps Indication:BMI 24.0-24.9, adult Start:04-Sep-2020 Instruction Type:Patient Education Patient Instructions Indication:Nonsmoker Start:20-Feb-2020 Instruction Type:Provider Instructions for Treatment How to Access Health Informa tion Online using Patient Portal and [employer] Apps Indication:Nonsmoker Start:20-Feb-2020 Instruction Type:Patient Education How to access health informa tion online Indication:Nonsmoker Start:29-Apr-2019 Instruction Type:Patient Education How to access health informa tion online - Detail Indication:Nonsmoker Start:29-Apr-2019 Instruction Type:Patient Education Patient Instructions Indication:BMI 24.0-24.9, adult Start:29-Apr-2019 Instruction Type:Provider Instructions for Treatment How to access health informa tion online Indication:Nonsmoker Start:15-Apr-2019 Instruction Type:Patient Education How to access health informa tion online - Detail Indication:Nonsmoker Start:15-Apr-2019 Instruction Type:Patient Education Patient Instructions Indication:Nonsmoker Start:15-Apr-2019 Instruction Type:Provider Instructions for Treatment How to access health informa tion online Indication:Nonsmoker Start:12-Apr-2018 Instruction Type:Patient Education How to access health informa tion online - Detail Indication:Nonsmoker Start:12-Apr-2018 Instruction Type:Patient Education Patient Instructions Indication:Facial pressure Start:12-Apr-2018 Instruction Type:Provider Instructions for Treatment How to access health informa tion online Indication:Hematuria Start:24-Jul-2017 Instruction Type:Patient Education How to access health informa tion online - Detail Indication:Hematuria Start:24-Jul-2017 Instruction Type:Patient Education Patient Instructions Indication:Hematuria Start:24-Jul-2017 Instruction Type:Provider Instructions for Treatment How to access health informa tion online Indication:BMI between 19-24,adult Start:17-Feb-2017 Instruction Type:Patient Education How to access health informa tion online - Detail Indication:BMI between 19-24,adult Start:17-Feb-2017 Instruction Type:Patient Education Patient Instructions Indication:Sinusitis, bacterial Start:17-Feb-2017 Instruction Type:Provider Instructions for Treatment DISCONTINUED - CALCIFEDIOL ( 50830) Indication:Screening for thyroid disorder Start:08-Jul-2016 Instruction Type:Patient Education DISCONTINUED - METABOLIC REBOLLEDO EL, COMPREHENSIVE (07236) Indication:Screening for thyroid disorder Start:08-Jul-2016 Instruction Type:Patient Education DISCONTINUED - LIPID PANEL ( 54647) Indication:Screening for thyroid disorder Start:08-Jul-2016 Instruction Type:Patient Education DISCONTINUED - CBC, PLATELET S & AUT DIFF (91503) Indication:Screening for thyroid disorder Start:08-Jul-2016 Instruction Type:Patient Education DISCONTINUED - TSH (80747) Indication:Screening for thyroid disorder Start:08-Jul-2016 Instruction Type:Patient Education How to access health informa tion online Indication:Rash Start:04-Jul-2016 Instruction Type:Patient Education How to access health informa tion online - Detail Indication:Rash Start:04-Jul-2016 Instruction Type:Patient Education Patient Instructions Indication:Rash Start:04-Jul-2016 Instruction Type:Provider Instructions for Treatment How to access health informa tion online Indication:UTI symptoms Start:04-Feb-2016 Instruction Type:Patient Education How to access health informa tion online - Detail Indication:UTI symptoms Start:04-Feb-2016 Instruction Type:Patient Education Patient Instructions Indication:UTI symptoms Start:04-Feb-2016 Instruction Type:Provider Instructions for Treatment Patient Instructions Indication:Screening for thyroid disorder Start:05-Sep-2014 Instruction Type:Provider Instructions for Treatment Patient Instructions Indication:Acute sinusitis, unspecified Start:07-Jul-2014 Instruction Type:Provider Instructions for Treatment Patient Instructions Indication:Vitamin D deficiency Start:06-Jun-2014 Instruction Type:Provider Instructions for Treatment [facility]; [facility] Work Phone: Instructions* Name Dates Details Patient Instructions Indication:Nonsmoker Start:03-Mar-2022 Instruction Type:Provider Instructions for Treatment How to Access Health Informa tion Online using Patient Portal and [employer] Apps Indication:Nonsmoker Start:03-Mar-2022 Instruction Type:Patient Education How to Access Health Informa tion Online using Patient Portal and [employer] Apps Indication:Nonsmoker Start:12-Oct-2020 Instruction Type:Patient Education Patient Instructions Indication:Nonsmoker Start:12-Oct-2020 Instruction Type:Provider Instructions for Treatment Patient Instructions Indication:BMI 24.0-24.9, adult Start:02-Oct-2020 Instruction Type:Provider Instructions for Treatment How to Access Health Informa tion Online using Patient Portal and [employer] Apps Indication:BMI 24.0-24.9, adult Start:02-Oct-2020 Instruction Type:Patient Education Patient Instructions Indication:BMI 24.0-24.9, adult Start:04-Sep-2020 Instruction Type:Provider Instructions for Treatment How to Access Health Informa tion Online using Patient Portal and [employer] Apps Indication:BMI 24.0-24.9, adult Start:04-Sep-2020 Instruction Type:Patient Education Patient Instructions Indication:Nonsmoker Start:20-Feb-2020 Instruction Type:Provider Instructions for Treatment How to Access Health Informa tion Online using Patient Portal and [employer] Apps Indication:Nonsmoker Start:20-Feb-2020 Instruction Type:Patient Education How to access health informa tion online Indication:Nonsmoker Start:29-Apr-2019 Instruction Type:Patient Education How to access health informa tion online - Detail Indication:Nonsmoker Start:29-Apr-2019 Instruction Type:Patient Education Patient Instructions Indication:BMI 24.0-24.9, adult Start:29-Apr-2019 Instruction Type:Provider Instructions for Treatment How to access health informa tion online Indication:Nonsmoker Start:15-Apr-2019 Instruction Type:Patient Education How to access health informa tion online - Detail Indication:Nonsmoker Start:15-Apr-2019 Instruction Type:Patient Education Patient Instructions Indication:Nonsmoker Start:15-Apr-2019 Instruction Type:Provider Instructions for Treatment How to access health informa tion online Indication:Nonsmoker Start:12-Apr-2018 Instruction Type:Patient Education How to access health informa tion online - Detail Indication:Nonsmoker Start:12-Apr-2018 Instruction Type:Patient Education Patient Instructions Indication:Facial pressure Start:12-Apr-2018 Instruction Type:Provider Instructions for Treatment How to access health informa tion online Indication:Hematuria Start:24-Jul-2017 Instruction Type:Patient Education How to access health informa tion online - Detail Indication:Hematuria Start:24-Jul-2017 Instruction Type:Patient Education Patient Instructions Indication:Hematuria Start:24-Jul-2017 Instruction Type:Provider Instructions for Treatment How to access health informa tion online Indication:BMI between 19-24,adult Start:17-Feb-2017 Instruction Type:Patient Education How to access health informa tion online - Detail Indication:BMI between 19-24,adult Start:17-Feb-2017 Instruction Type:Patient Education Patient Instructions Indication:Sinusitis, bacterial Start:17-Feb-2017 Instruction Type:Provider Instructions for Treatment DISCONTINUED - CALCIFEDIOL ( 53168) Indication:Screening for thyroid disorder Start:08-Jul-2016 Instruction Type:Patient Education DISCONTINUED - METABOLIC REBOLLEDO EL, COMPREHENSIVE (37994) Indication:Screening for thyroid disorder Start:08-Jul-2016 Instruction Type:Patient Education DISCONTINUED - LIPID PANEL ( 74776) Indication:Screening for thyroid disorder Start:08-Jul-2016 Instruction Type:Patient Education DISCONTINUED - CBC, PLATELET S & AUT DIFF (78631) Indication:Screening for thyroid disorder Start:08-Jul-2016 Instruction Type:Patient Education DISCONTINUED - TSH (40127) Indication:Screening for thyroid disorder Start:08-Jul-2016 Instruction Type:Patient Education How to access health informa tion online Indication:Rash Start:04-Jul-2016 Instruction Type:Patient Education How to access health informa tion online - Detail Indication:Rash Start:04-Jul-2016 Instruction Type:Patient Education Patient Instructions Indication:Rash Start:04-Jul-2016 Instruction Type:Provider Instructions for Treatment How to access health informa tion online Indication:UTI symptoms Start:04-Feb-2016 Instruction Type:Patient Education How to access health informa tion online - Detail Indication:UTI symptoms Start:04-Feb-2016 Instruction Type:Patient Education Patient Instructions Indication:UTI symptoms Start:04-Feb-2016 Instruction Type:Provider Instructions for Treatment Patient Instructions Indication:Screening for thyroid disorder Start:05-Sep-2014 Instruction Type:Provider Instructions for Treatment Patient Instructions Indication:Acute sinusitis, unspecified Start:07-Jul-2014 Instruction Type:Provider Instructions for Treatment Patient Instructions Indication:Vitamin D deficiency Start:06-Jun-2014 Instruction Type:Provider Instructions for Treatment [facility] Work Phone: progress note Author Loreto Story [facility] Note Date/Time November 07, 2024 12:10pm [facility] [place] [address] OFFICE VISIT Date of Service: 11/07/24 MR#: [id number] Acct: [id number] Name: DEB OSEI Rep #: [id number] : 1975 Provider: CARLOS Story Age/Sex: 48/F Location: [facility] [place] Status: Signed Intake Vital Signs 04/21/24 09:59 Height 5 ft 9 in Intake Visit Reasons: Back pain Chief Complaint: neck pain Allergies No Known Allergies Allergy (Verified 11/07/24 11:44) Medications ?Medication ?Instructions ?Recorded ?Confirmed ?Type ibuprofen 600 mg tablet 600 mg PO ONCE 01/26/1710/18 History doxycycline hyclate 20 mg tablet tablet PO 06/02/22 History PFSH Medical History Weight gain Multinodular goiter Chronic headaches Surgical History History of Hx of hernia repair History of appendectomy Family History Grandmother Colon cancer Diabetes Heart disease Sister Melanoma skin cancer Brother Thyroid disorder Grandfather Heart disease Other Depression Hypertension Myocardial infarction HPI Back pain Chief Complaint: Back pain Visit Number: 2 Details: Deb is a 48 y/o female here for follow up of neck and back pain.Pt. advises her last adjustment was helpful in relieving her pain. She states she recently felt an increase in stiffness in her neck and wanted to come in before it got toopainful. She states it it tightness that extends into her bilateral traps. Shec/o more frequent CAROLINA's. She continues c/o left shoulder pain at times when taking off her shirt. She had a steroid injection for right hand pain which was helpful. She receives regular massages which help decrease her pain. Her low back pain is intermittent. She denies new injury, numbness, tingling, or radiculopathy. She has been treating her pain with heat and stim at home. She states chiropractic adjustments and e-stim are helpful in relieving her pain anddiscomfort but it gradually returns. Location: neck and shoulder blades Duration: frequent Aggravating or associated factors: driving,computer work, sleeping Relieving factors: chiro Treatment: chiro, massage Pain Quality: aching, dull and radiating Exam Musc General: Yes normal posture, normal gait and joint tenderness; No decreased range of motion Cervical Spine: Yes loss of normal cervical lordosis, Yes cervical muscular tenderness bilateral lower , Yes cervical spasm right greater than left lower , Yes Trigger (R trap, scalene) and Yes misalignment misalignment: C5, C6 and C7 Thoracic/Lumber: Yes thoracic and lumbar spine normal to inspection, Yes Lasegue's sign negative, No pain with thoraco-lumbar ROM, Yes paraspinal tenderness on the left greater than right (upper/mid thoracic, lumbopelvic), No thoraco-lumbar ROM limited, Yes thoraco-lumbar spasm bilaterally (QL) in the lower lumbar and on the left greater than right (trap, levator) and Yes misalignment T3, T4, T5, T6, L3, L4, L5 and RIL Sacroiliac joints: on the right tender to palpation Office Procedures Procedures - Chiropractic Procedures Manipulation: Cervical C6, Lumbar L3, Thoracic T2 and T6 and Pelvis RIL Manipulation: 3-4 regions Electronic Stimulation: Yes Electrical Stimulation: Cervical 15 mins (11) mA Therapy Performed by:: Clare Matthews, Mechanical: Yes Patient Response: positive Assessment and Plan Assessment and Plan (1) Segmental and somatic dysfunction of cervical region: Status: Acute (2) Segmental and somatic dysfunction of thoracic region: Status: Acute (3) Segmental and somatic dysfunction of lumbar region: Status: Acute (4) Segmental and somatic dysfunction of pelvic region: Status: Acute Orders: Orders Chiropractic Treatments Today G44.86 - Cervicogenic headache, M99.01 - Segmental and somatic dysfunction of cervical region, M99.02 - Segmental and somatic dysfunction of thoracic region, M99.03 - Segmental and somatic dysfunction of lumbar region, M99.05 - Segmental and somatic dysfunction of pelvic region Plan Patient was treated without incident. She gets improvement with treatment. Recommend acupuncture for ongoing neck pain. Plan Details Goals & Barriers: Goals Decrease pain and spasm Improve ROM Improve ability to perform ADLs with comfort Barriers Posture Follow Up: PRN Coding Level of Care Code No Charge Diagnoses Segmental and somatic dysfunction of cervical region M99.01 Segmental and somatic dysfunction of thoracic region M99.02 Segmental and somatic dysfunction of lumbar region M99.03 Segmental and somatic dysfunction of pelvic region M99.05 CPT Codes Procedures - Manipulation: 3-4 regions (75407) Procedures - Electronic Stimulation: Yes (46867) Procedures - Traction, Mechanical: Yes (18783) 11/07/24 1224 <Electronically signed by Loreto Brock> Date _ Loreto Story D.C. Cosigner Signature: Date (if applicable) CC: ~ [facility] Work Phone: Progress note Author Loreto Story [facility] Note Date/Time December 05, 2024 1 1:00am [facility] [address] [place] [address] OFFICE VISIT Date of Service: 12/05/24 MR#: [id number] Acct: [id number] Name: DEB OSEI Rep #: [id number] : 1975 Provider: CARLOS Story Age/Sex: 49/F Location: [facility] [place] Status: Signed Intake Vital Signs 04/21/24 09:59 Height 5 ft 9 in Intake Visit Reasons: Back pain Chief Complaint: neck pain Is patient in pain?: Yes (neck and upper back ) Pain scale (1-10): 2 Allergies No Known Allergies Allergy (Verified 12/05/24 09:41) Medications ?Medication ?Instructions ?Recorded ?Confirmed ?Type ibuprofen 600 mg tablet 600 mg PO ONCE 01/26/1711/17 History doxycycline hyclate 20 mg tablet tablet PO 06/02/22 History [facility] Medical History Weight gain Multinodular goiter Chronic headaches Surgical History History of Hx of hernia repair History of appendectomy Family History Grandmother Colon cancer Diabetes Heart disease Sister Melanoma skin cancer Brother Thyroid disorder Grandfather Heart disease Other Depression Hypertension Myocardial infarction HPI Back pain Chief Complaint: Back pain Visit Number: 3 Details: Deb is a 49 y/o female here for follow up of neck and back pain.Pt. advises her last adjustment was helpful in relieving her low back pain. She continues kevin/o stiffness in her neck, upper back that extends into her bilateral traps. Shec/o frequent CAROLINA's and also continues c/o left shoulder pain at times when taking off her shirt. She rates her pain 2/10 and would like to try acupuncture today. Her low back pain is intermittent. She receives regular massages which help decrease her pain. She denies new injury, numbness, tingling, or radiculopathy. She has been treating her pain with heat and stim at home. She states chiropractic adjustments are helpful in relieving her pain and discomfortbut it gradually returns. Location: neck and shoulder blades Duration: frequent Aggravating or associated factors: driving,computer work, sleeping Relieving factors: chiro Treatment: chiro, massage Pain Quality: aching, dull and radiating Exam Musc General: Yes normal posture, normal gait and joint tenderness; No decreased range of motion Cervical Spine: Yes loss of normal cervical lordosis, Yes cervical muscular tenderness bilateral diffuse , Yes cervical spasm left greater than right diffuse trapezius and paracervical muscles and Yes misalignment misalignment: C5, C6 and C7 Thoracic/Lumber: Yes thoracic and lumbar spine normal to inspection, Yes paraspinal tenderness on the left greater than right (upper/mid thoracic, lumbopelvic), Yes thoraco-lumbar spasm bilaterally (QL) in the lower lumbar and on the left greater than right (trap, levator) and Yes misalignment T3, T4, T5, T6, L3, L4, L5 and RIL Sacroiliac joints: on the right tender to palpation Office Procedures Procedures - Chiropractic Procedures Manipulation: Cervical C6, Lumbar L3, Thoracic T2 and T6 and Pelvis RIL Manipulation: 3-4 regions Patient Response: positive Details: ?Acupuncture Patient instructions/Risk: Patient instructed not to move and informed of risks of moving. Risks associated with the procedure and the specific location were reviewed with the patient and consent was obtained. Acupuncture performed: E-stim was utilized-5setting. Acupoints Treated: GV20,BL10,GB20/21,LU7,YSABEL trap pts Sterile, single use, solid filament needles were inserted at various depths and angles to release tight tissue, improve microcirculation and remove neuro- noxious chemicals via a myofascial twitch response. Wetmore were inserted, needle manipulation was performed. Needle removal was performed and pressure wasapplied when necessary. Minutes:20 Needle Number: .25x15,.20x30 Patient response: pos Patient Positioning: prone Acupuncture Acupuncture with ES: Yes Assessment and Plan Assessment and Plan (1) Segmental and somatic dysfunction of cervical region: Status: Acute (2) Segmental and somatic dysfunction of thoracic region: Status: Acute (3) Segmental and somatic dysfunction of lumbar region: Status: Acute (4) Segmental and somatic dysfunction of pelvic region: Status: Acute (5) Cervicogenic headache: Status: Acute Orders: Orders Chiropractic Treatments Today G44.86 - Cervicogenic headache, M99.01 - Segmental and somatic dysfunction of cervical region, M99.02 - Segmental and somatic dysfunction of thoracic region, M99.03 - Segmental and somatic dysfunction of lumbar region, M99.05 - Segmental and somatic dysfunction of pelvic region Plan Patient was treated with acupuncture and chiro today. Well tolerated. She will follow up in 2 weeks and monitor patient progress. Plan Details Goals & Barriers: Goals Decrease pain and spasm Improve ROM Improve HAs Barriers Posture Follow Up: PRN Coding Level of Care Code No Charge Diagnoses Segmental and somatic dysfunction of cervical region M99.01 Segmental and somatic dysfunction of thoracic region M99.02 Segmental and somatic dysfunction of lumbar region M99.03 Segmental and somatic dysfunction of pelvic region M99.05 Cervicogenic headache G44.86 CPT Codes Procedures - Manipulation: 3-4 regions (31156) Acupuncture - Acupuncture with ES: Yes (89383) 12/05/24 1009 <Electronically signed by Loreto Brock> Date _ Loreto Nunez Signature: Date (if applicable) CC: ~ [facility] Work Phone: [employer] for referral (narrative)* Diagnostic Procedure Only (Routine) - Authorized Specialty Diagnoses / Procedures Referred By Contac t Referred To Contact MOLECULAR & FUNCTIONAL IMAGING Diagnoses Parathyroid abnormality (HCC) Procedures NM INJ PARATHYROID ADENOMA NONIMAGING NJX RP LOCLZJ NON-IMG PROBE STUDY INTRAVENOUS Bishop Carpio MD [address] [place] [address] Molecular & Functional Imaging [address] [place] [address] Referral ID Status Reason Start Date Expiration Date Visits Requested Visits Authorized [id number] Authorized Auto-Generat ed Referral 06/02/2023 07/01/2024 [facility]No reason for referral information available[facility] Work Phone: [facility] for visit Narrative* Diagnostic Procedure Only (Routine) - Closed Specialty Diagnoses / Procedures Referred By Contac t Referred To Contact MOLECULAR & FUNCTIONAL IMAGING Diagnoses Parathyroid abnormality (HCC) Procedures NM INJ PARATHYROID ADENOMA NONIMAGING NJX RP LOCLZJ NON-IMG PROBE STUDY INTRAVENOUS Bishop Carpio MD [address] [place] [address] Molecular & Functional Imaging [address] [place] [address] Referral ID Status Reason Start Date Expiration Date V isits Requested Visits Authorized [id number] Closed Auto-Generate d Referral 06/02/2023 07/01/2024 1 1 [facility] Family History No Family History Records FoundUnknown Family Member Name Dates Details Brother 1 Comments:hypothyroid, HTN Status:Active child Comments:healthy Status:Active child 2 healthy Status:Active child 3 healthy Status:Active Father Comments:healthy- living Status:Active Maternal Grandmother Comments:heart Dz , colon Ca Status:Active Mother Comments:healthy-HTN Status:Active Sister 1 Comments:skin Ca Status:Active Sister 2 Comments:Healthy Status:Active Unknown Family Member Name Dates Details Brother 1 Comments:hypothyroid, HTN Status:Active child Comments:healthy Status:Active child 2 healthy Status:Active child 3 healthy Status:Active Father Comments:healthy- living Status:Active Maternal Grandmother Comments:heart Dz , colon Ca Status:Active Mother Comments:healthy-HTN Status:Active Sister 1 Comments:skin Ca Status:Active Sister 2 Comments:Healthy Status:Active Unknown Family Member Name Dates Details Brother 1 Comments:hypothyroid, HTN Status:Active child Comments:healthy Status:Active child 2 healthy Status:Active child 3 healthy Status:Active Father Comments:healthy- living Status:Active Maternal Grandmother Comments:heart Dz , colon Ca Status:Active Mother Comments:healthy-HTN Status:Active Sister 1 Comments:skin Ca Status:Active Sister 2 Comments:Healthy Status:Active Unknown Family Member Name Dates Details Brother 1 Comments:hypothyroid, HTN Status:Active child Comments:healthy Status:Active child 2 healthy Status:Active child 3 healthy Status:Active Father Comments:healthy- living Status:Active Maternal Grandmother Comments:heart Dz , colon Ca Status:Active Mother Comments:healthy-HTN Status:Active Sister 1 Comments:skin Ca Status:Active Sister 2 Comments:Healthy Status:Active Unknown Family Member Name Dates Details Brother 1 Comments:hypothyroid, HTN Status:Active child Comments:healthy Status:Active child 2 healthy Status:Active child 3 healthy Status:Active Father Comments:healthy- living Status:Active Maternal Grandmother Comments:heart Dz , colon Ca Status:Active Mother Comments:healthy-HTN Status:Active Sister 1 Comments:skin Ca Status:Active Sister 2 Comments:Healthy Status:Active Unknown Family Member Name Dates Details Brother 1 Comments:hypothyroid, HTN Status:Active child Comments:healthy Status:Active child 2 healthy Status:Active child 3 healthy Status:Active Father Comments:healthy- living Status:Active Maternal Grandmother Comments:heart Dz , colon Ca Status:Active Mother Comments:healthy-HTN Status:Active Sister 1 Comments:skin Ca Status:Active Sister 2 Comments:Healthy Status:Active Unknown Family Member Name Dates Details Brother 1 Comments:hypothyroid, HTN Status:Active child Comments:healthy Status:Active child 2 healthy Status:Active child 3 healthy Status:Active Father Comments:healthy- living Status:Active Maternal Grandmother Comments:heart Dz , colon Ca Status:Active Mother Comments:healthy-HTN Status:Active Sister 1 Comments:skin Ca Status:Active Sister 2 Comments:Healthy Status:Active Relationship Condition Age at Onset Recorded Date/T abraham Not Specified Depression Unknown Myocardial infarction Unknown Hypertension Unknown grandmother Malignant neoplasm of colon Unknown Diabetes mellitus Unknown Cardiac disease Unknown sister Malignant melanoma Unknown brother Disorder of thyroid Unknown grandfather Cardiac disease Unknown Family Member Condition Full Brother High blood pressure Full Brother Hyperthyroidism Full Sister Melanoma Father Alive Mother Vascular disease Mother Cancer Mother Alive Instructions Name Dates Details Nonsmoker : How to access he alth information online Indication:Nonsmoker Nonsmoker : How to access he alth information online - Detail Indication:Nonsmoker Facial pressure : Patient In structions Indication:Facial pressure Hematuria : How to access he alth information online Indication:Hematuria Hematuria : How to access he alth information online - Detail Indication:Hematuria Hematuria : Patient Instruct ions Indication:Hematuria BMI between 19-24,adult : Ho w to access health information online Indication:BMI between 19-24,adult BMI between 19-24,adult : Ho w to access health information online - Detail Indication:BMI between 19-24,adult Sinusitis, bacterial : Patie nt Instructions Indication:Sinusitis, bacterial Screening for thyroid disord er : DISCONTINUED - CALCIFEDIOL (58782) Indication:Screening for thyroid disorder Screening for thyroid disord er : DISCONTINUED - METABOLIC PANEL, COMPREHENSIVE (89447) Indication:Screening for thyroid disorder Screening for thyroid disord er : DISCONTINUED - LIPID PANEL (60356) Indication:Screening for thyroid disorder Screening for thyroid disord er : DISCONTINUED - CBC, PLATELETS & AUT DIFF (72331) Indication:Screening for thyroid disorder Screening for thyroid disord er : DISCONTINUED - TSH (32750) Indication:Screening for thyroid disorder Rash : How to access health information online Indication:Rash Rash : How to access health information online - Detail Indication:Rash Rash : Patient Instructions Indication:Rash UTI symptoms : How to access health information online Indication:UTI symptoms UTI symptoms : How to access health information online - Detail Indication:UTI symptoms UTI symptoms : Patient Instr uctions Indication:UTI symptoms Screening for thyroid disord er : Patient Instructions Indication:Screening for thyroid disorder Acute sinusitis, unspecified : Patient Instructions Indication:Acute sinusitis, unspecified Vitamin D deficiency : Patie nt Instructions Indication:Vitamin D deficiency Name Dates Details How to access health informa tion online Indication:Nonsmoker Start:12-Apr-2018 Instruction Type:Patient Education How to access health informa tion online - Detail Indication:Nonsmoker Start:12-Apr-2018 Instruction Type:Patient Education Patient Instructions Indication:Facial pressure Start:12-Apr-2018 Instruction Type:Provider Instructions for Treatment How to access health informa tion online Indication:Hematuria Start:24-Jul-2017 Instruction Type:Patient Education How to access health informa tion online - Detail Indication:Hematuria Start:24-Jul-2017 Instruction Type:Patient Education Patient Instructions Indication:Hematuria Start:24-Jul-2017 Instruction Type:Provider Instructions for Treatment How to access health informa tion online Indication:BMI between 19-24,adult Start:17-Feb-2017 Instruction Type:Patient Education How to access health informa tion online - Detail Indication:BMI between 19-24,adult Start:17-Feb-2017 Instruction Type:Patient Education Patient Instructions Indication:Sinusitis, bacterial Start:17-Feb-2017 Instruction Type:Provider Instructions for Treatment DISCONTINUED - CALCIFEDIOL ( 44179) Indication:Screening for thyroid disorder Start:08-Jul-2016 Instruction Type:Patient Education DISCONTINUED - METABOLIC REBOLLEDO EL, COMPREHENSIVE (74498) Indication:Screening for thyroid disorder Start:08-Jul-2016 Instruction Type:Patient Education DISCONTINUED - LIPID PANEL ( 87939) Indication:Screening for thyroid disorder Start:08-Jul-2016 Instruction Type:Patient Education DISCONTINUED - CBC, PLATELET S & AUT DIFF (59461) Indication:Screening for thyroid disorder Start:08-Jul-2016 Instruction Type:Patient Education DISCONTINUED - TSH (61153) Indication:Screening for thyroid disorder Start:08-Jul-2016 Instruction Type:Patient Education How to access health informa tion online Indication:Rash Start:04-Jul-2016 Instruction Type:Patient Education How to access health informa tion online - Detail Indication:Rash Start:04-Jul-2016 Instruction Type:Patient Education Patient Instructions Indication:Rash Start:04-Jul-2016 Instruction Type:Provider Instructions for Treatment How to access health informa tion online Indication:UTI symptoms Start:04-Feb-2016 Instruction Type:Patient Education How to access health informa tion online - Detail Indication:UTI symptoms Start:04-Feb-2016 Instruction Type:Patient Education Patient Instructions Indication:UTI symptoms Start:04-Feb-2016 Instruction Type:Provider Instructions for Treatment Patient Instructions Indication:Screening for thyroid disorder Start:05-Sep-2014 Instruction Type:Provider Instructions for Treatment Patient Instructions Indication:Acute sinusitis, unspecified Start:07-Jul-2014 Instruction Type:Provider Instructions for Treatment Patient Instructions Indication:Vitamin D deficiency Start:06-Jun-2014 Instruction Type:Provider Instructions for Treatment Name Dates Details Patient Instructions Indication:Nonsmoker Start:20-Feb-2020 Instruction Type:Provider Instructions for Treatment How to Access Health Informa tion Online using Patient Portal and [employer] Apps Indication:Nonsmoker Start:20-Feb-2020 Instruction Type:Patient Education How to access health informa tion online Indication:Nonsmoker Start:29-Apr-2019 Instruction Type:Patient Education How to access health informa tion online - Detail Indication:Nonsmoker Start:29-Apr-2019 Instruction Type:Patient Education Patient Instructions Indication:BMI 24.0-24.9, adult Start:29-Apr-2019 Instruction Type:Provider Instructions for Treatment How to access health informa tion online Indication:Nonsmoker Start:15-Apr-2019 Instruction Type:Patient Education How to access health informa tion online - Detail Indication:Nonsmoker Start:15-Apr-2019 Instruction Type:Patient Education Patient Instructions Indication:Nonsmoker Start:15-Apr-2019 Instruction Type:Provider Instructions for Treatment How to access health informa tion online Indication:Nonsmoker Start:12-Apr-2018 Instruction Type:Patient Education How to access health informa tion online - Detail Indication:Nonsmoker Start:12-Apr-2018 Instruction Type:Patient Education Patient Instructions Indication:Facial pressure Start:12-Apr-2018 Instruction Type:Provider Instructions for Treatment How to access health informa tion online Indication:Hematuria Start:24-Jul-2017 Instruction Type:Patient Education How to access health informa tion online - Detail Indication:Hematuria Start:24-Jul-2017 Instruction Type:Patient Education Patient Instructions Indication:Hematuria Start:24-Jul-2017 Instruction Type:Provider Instructions for Treatment How to access health informa tion online Indication:BMI between 19-24,adult Start:17-Feb-2017 Instruction Type:Patient Education How to access health informa tion online - Detail Indication:BMI between 19-24,adult Start:17-Feb-2017 Instruction Type:Patient Education Patient Instructions Indication:Sinusitis, bacterial Start:17-Feb-2017 Instruction Type:Provider Instructions for Treatment DISCONTINUED - CALCIFEDIOL ( 94519) Indication:Screening for thyroid disorder Start:08-Jul-2016 Instruction Type:Patient Education DISCONTINUED - METABOLIC REBOLLEDO EL, COMPREHENSIVE (88737) Indication:Screening for thyroid disorder Start:08-Jul-2016 Instruction Type:Patient Education DISCONTINUED - LIPID PANEL ( 23920) Indication:Screening for thyroid disorder Start:08-Jul-2016 Instruction Type:Patient Education DISCONTINUED - CBC, PLATELET S & AUT DIFF (49375) Indication:Screening for thyroid disorder Start:08-Jul-2016 Instruction Type:Patient Education DISCONTINUED - TSH (30867) Indication:Screening for thyroid disorder Start:08-Jul-2016 Instruction Type:Patient Education How to access health informa tion online Indication:Rash Start:04-Jul-2016 Instruction Type:Patient Education How to access health informa tion online - Detail Indication:Rash Start:04-Jul-2016 Instruction Type:Patient Education Patient Instructions Indication:Rash Start:04-Jul-2016 Instruction Type:Provider Instructions for Treatment How to access health informa tion online Indication:UTI symptoms Start:04-Feb-2016 Instruction Type:Patient Education How to access health informa tion online - Detail Indication:UTI symptoms Start:04-Feb-2016 Instruction Type:Patient Education Patient Instructions Indication:UTI symptoms Start:04-Feb-2016 Instruction Type:Provider Instructions for Treatment Patient Instructions Indication:Screening for thyroid disorder Start:05-Sep-2014 Instruction Type:Provider Instructions for Treatment Patient Instructions Indication:Acute sinusitis, unspecified Start:07-Jul-2014 Instruction Type:Provider Instructions for Treatment Patient Instructions Indication:Vitamin D deficiency Start:06-Jun-2014 Instruction Type:Provider Instructions for Treatment Name Dates Details How to access health informa tion online Indication:Nonsmoker Start:12-Apr-2018 Instruction Type:Patient Education How to access health informa tion online - Detail Indication:Nonsmoker Start:12-Apr-2018 Instruction Type:Patient Education Patient Instructions Indication:Facial pressure Start:12-Apr-2018 Instruction Type:Provider Instructions for Treatment How to access health informa tion online Indication:Hematuria Start:24-Jul-2017 Instruction Type:Patient Education How to access health informa tion online - Detail Indication:Hematuria Start:24-Jul-2017 Instruction Type:Patient Education Patient Instructions Indication:Hematuria Start:24-Jul-2017 Instruction Type:Provider Instructions for Treatment How to access health informa tion online Indication:BMI between 19-24,adult Start:17-Feb-2017 Instruction Type:Patient Education How to access health informa tion online - Detail Indication:BMI between 19-24,adult Start:17-Feb-2017 Instruction Type:Patient Education Patient Instructions Indication:Sinusitis, bacterial Start:17-Feb-2017 Instruction Type:Provider Instructions for Treatment DISCONTINUED - CALCIFEDIOL ( [id number]) Indication:Screening for thyroid disorder Start:08-Jul-2016 Instruction Type:Patient Education DISCONTINUED - METABOLIC REBOLLEDO EL, COMPREHENSIVE (18436) Indication:Screening for thyroid disorder Start:08-Jul-2016 Instruction Type:Patient Education DISCONTINUED - LIPID PANEL ( 21783) Indication:Screening for thyroid disorder Start:08-Jul-2016 Instruction Type:Patient Education DISCONTINUED - CBC, PLATELET S & AUT DIFF (58832) Indication:Screening for thyroid disorder Start:08-Jul-2016 Instruction Type:Patient Education DISCONTINUED - TSH (10604) Indication:Screening for thyroid disorder Start:08-Jul-2016 Instruction Type:Patient Education How to access health informa tion online Indication:Rash Start:04-Jul-2016 Instruction Type:Patient Education How to access health informa tion online - Detail Indication:Rash Start:04-Jul-2016 Instruction Type:Patient Education Patient Instructions Indication:Rash Start:04-Jul-2016 Instruction Type:Provider Instructions for Treatment How to access health informa tion online Indication:UTI symptoms Start:04-Feb-2016 Instruction Type:Patient Education How to access health informa tion online - Detail Indication:UTI symptoms Start:04-Feb-2016 Instruction Type:Patient Education Patient Instructions Indication:UTI symptoms Start:04-Feb-2016 Instruction Type:Provider Instructions for Treatment Patient Instructions Indication:Screening for thyroid disorder Start:05-Sep-2014 Instruction Type:Provider Instructions for Treatment Patient Instructions Indication:Acute sinusitis, unspecified Start:07-Jul-2014 Instruction Type:Provider Instructions for Treatment Patient Instructions Indication:Vitamin D deficiency Start:06-Jun-2014 Instruction Type:Provider Instructions for Treatment Summary Purpose Advance Directives No Advanced Directives Records FoundNo Advanced Directives Records FoundNo Advanced Directives Records FoundNo Advanced Directives Records FoundNo Advanced Directives Records Found No Information Available No Advanced Directives Records Found Chief Complaint and Reason for Visit Chief Complaint THYROID NODULES Chief Complaint REEVAL GOITER Reason for Visit Neck pain Segmental and somatic dysfunction of cervical region Segmental and somatic dysfunction of lumbar region Segmental and somatic dysfunction of pelvic region Segmental and somatic dysfunction of thoracic region Chief Complaint Admit Date BACK PAIN October 10, 2024 2: 30pm Reason for Visit Admit Date Cervicogenic headache October 10, 2024 2:30pm Segmental and somatic dysfunction of cer vical region October 10, 2024 2:30pm Segmental and somatic dysfunction of lum bar region October 10, 2024 2:30pm Segmental and somatic dysfunction of pel ericka region October 10, 2024 2:30pm Segmental and somatic dysfunction of tho racic region October 10, 2024 2:30pm Back pain October 10, 2024 2: 30pm Chief Complaint Admit Date BACK PAIN October 10, 2024 2: 30pm BACK PAIN November 07, 2024 11:30am Reason for Visit Admit Date Cervicogenic headache October 10, 2024 2:30pm Segmental and somatic dysfunction of cer vical region October 10, 2024 2:30pm Segmental and somatic dysfunction of lum bar region October 10, 2024 2:30pm Segmental and somatic dysfunction of pel ericka region October 10, 2024 2:30pm Segmental and somatic dysfunction of tho racic region October 10, 2024 2:30pm Segmental and somatic dysfunction of cer vical region November 07, 2024 11:30am Segmental and somatic dysfunction of lum bar region November 07, 2024 11:30am Segmental and somatic dysfunction of pel ericka region November 07, 2024 11:30am Segmental and somatic dysfunction of tho racic region November 07, 2024 11:30am Chief Complaint Admit Date BACK PAIN October 10, 2024 2: 30pm BACK PAIN November 07, 2024 11:30am ACUPUNCTURE/ADJUSTMENT December 05 8:58am Reason for Visit Admit Date Cervicogenic headache October 10, 2024 2:30pm Segmental and somatic dysfunction of cer vical region October 10, 2024 2:30pm Segmental and somatic dysfunction of lum bar region October 10, 2024 2:30pm Segmental and somatic dysfunction of pel ericka region October 10, 2024 2:30pm Segmental and somatic dysfunction of tho racic region October 10, 2024 2:30pm Segmental and somatic dysfunction of cer vical region November 07, 2024 11:30am Segmental and somatic dysfunction of lum bar region November 07, 2024 11:30am Segmental and somatic dysfunction of pel ericka region November 07, 2024 11:30am Segmental and somatic dysfunction of tho racic region November 07, 2024 11:30am Cervicogenic headache December 05, 2024 8:58am Segmental and somatic dysfunction of cer vical region December 05, 2024 8:58am Segmental and somatic dysfunction of lum bar region December 05, 2024 8:58am Segmental and somatic dysfunction of pel ericka region December 05, 2024 8:58am Segmental and somatic dysfunction of tho racic region December 05, 2024 8:58am Reason for Referral Specialty Diagnoses / Procedures Referred By Contac t Referred To Contact Diagnoses Parathyroid abnormality (HCC) Procedures CONSULT TO ENDOCRINE SURGERY OFFICE/OUTPATIENT [facility] 60 MINUTES Bsihop Carpio MD [address] [place] [address] [place] [address] [place] [address] Referral ID Status Reason Start Date Expiration Date Visits Requested Visits Authorized [id number] Authorized PCP Requested Referral 06/16/2023 06/15/2024 1 1 Additional Source Comments INFORMATION SOURCE (unrecogn ized section and content) DATE CREATED AUTHOR 03/09/2020 Dionisio Chapman [facility] DATE CREATED AUTHOR AUTHOR'S ORGANIZ ATION 03/03/2022 [facility] DATE CREATED AUTHOR AUTHOR'S ORGANIZ ATION 06/17/2023 [facility] DATE CREATED AUTHOR AUTHOR'S ORGANIZ ATION 03/10/2024 [facility] EPIC DATE CREATED AUTHOR AUTHOR'S ORGANIZ ATION 06/24/2024 [facility] DATE CREATED AUTHOR AUTHOR'S ORGANIZ ATION 12/29/2024 [facility] Care Teams (unrecognized sec tion and content) Team Status: Active Member Role Status Dates Leidy Amador ELECTRON GUN ASSEMBLER, ELECTRON GUN ASSEMBLER-C Family Provider Active JESSICA Garrett Primary Care Provider Active Team Status: Inactive Member Role Status Dates JESSICA Garrett Primary Care Provi angy, Attending Provider, Referring Provider Active Service Worker Helper Relationship Specialty Start Date End Date Leidy Amador CNP [address] [place] [address] PCP - General Internal Medicine 11/20/17 Service Worker Helper Relationship Specialty Start Date End Date Leidy Amador CNP [address] [place] [address] PCP - General Internal Medicine 11/20/17 Service Worker Helper Relationship Specialty Start Date End Date Leidy Amador CNP [address] [facility] [address] [place] [address] PCP - General Internal Medicine 11/20/17 Team Status: Inactive Member Role Status Dates Effie Bran NP-Gwyn Primary Care Provider, Referring Provider Active Dr. Loreto Story , CARLOS Attending Provider Active Service Worker Helper Relationship Specialty Start Date End Date Effie Bran CNP [address] [facility] [address] [place] [address] PCP - General Family Medicine 06/01/23 Service Worker Helper Relationship Specialty Start Date End Date Effie Bran CNP [address] [facility] [address] [place] [address] PCP - General Family Medicine 06/01/23 Service Worker Helper Relationship Specialty Start Date End Date Effie Bran CNP [address] [facility] [address] [place] [address] PCP - General Family Medicine 06/01/23 Service Worker Helper Relationship Specialty Start Date End Date Effie Bran CNP [address] [facility] [address] [place] [address] PCP - General Family Medicine 06/01/23 Service Worker Helper Relationship Specialty Start Date End Date Unallocated, [place] [address] [place] [id number] PCP - General 09/16/22 Service Worker Helper Relationship Specialty Start Date End Date Unallocated, Noelle Mcintosh MD [address] [place] [id number] PCP - General 09/16/22 Service Worker Helper Relationship Specialty Start Date End Date Effie Bran CNP [address] [facility] [address] [place] [address] PCP - [facility] Family Medicine 06/01/23 Service Worker Helper Relationship Specialty Start Date End Date Unallocated, Noelle Mcintosh MD [address] [place] [id number] PCP - General 09/16/22 Service Worker Helper Relationship Specialty Start Date End Date Effie Bran CNP [address] [facility] [address] [place] [address] PCP - General Family Medicine 06/01/23 Team Status: Active Member Role/Relationship Status Dates Leidy Amador NP ELECTRON GUN ASSEMBLER-C Family Provider Active JESSICA Garrett Primary Care Provider Active Team Status: Inactive Member Role/Relationship Status Dates JESSICA Garrett Primary Care Provider Active Start: October 10, 2024 End: October 10, 2024 JESSICA Garrett Referring Provider Active Start: October 10, 2024 End: October 10, 2024 Dr. Loreto Story , CARLOS Attending Provider Active S tart: October 10, 2024 End: October 10, 2024 Team Status: Active Member Role/Relationship Status Dates Leidy Amador NP, ELECTRON GUN ASSEMBLER-C Primary care physician Active JESSICA Garrett Primary care physician Active Team Status: Inactive Member Role/Relationship Status Dates THU GarrettC Primary care physician Active Start: October 10, 2024 End: October 10, 2024 Effie Bran NP-C Referring Provider Active Start: October 10, 2024 End: October 10, 2024 Dr. Loreto Story [place] Attending physician Active Start: October 10, 2024 End: October 10, 2024 Team Status: Inactive Member Role/Relationship Status Dates Effie Bran NP-C Primary care physician Active Start: November 07, 2024 End: November 07, 2024 Effie Bran NP-C Referring Provider Active Start: November 07, 2024 End: November 07, 2024 Dr. Loreto Story [place] Attending physician Active Start: November 07, 2024 End: November 07, 2024 Team Status: Inactive Member Role/Relationship Status Dates Effie Bran NP-C Primary care physician Active Start: December 05, 2024 End: December 05, 2024 Effie Bran ELECTRON GUN ASSEMBLER-C Referring Provider Active Start: December 05, 2024 End: December 05, 2024 Dr. Loreto Story [place] Attending physician Active Start: December 05, 2024 End: December 05, 2024 Source Comments (unrecognize d section and content) In the event this informatio n is protected by the Federal Confidentiality of Alcohol and Drug Abuse Patient Records regulations: The Federal rules restrict any use of the information to criminally investigate or prosecute any alcohol or drug abuse patient.[facility] the event this information is protected by the Federal Confidentiality of Alcohol and Drug Abuse Patient Records regulations: The Federal rules restrict any use of the information to criminally investigate or prosecute any alcohol or drug abuse patient.[facility] the event this information is protected by the Federal Confidentiality of Alcohol and Drug Abuse Patient Records regulations: The Federal rules restrict any use of the information to criminally investigate or prosecute any alcohol or drug abuse patient.[facility] the event this information is protected by the Federal Confidentiality of Alcohol and Drug Abuse Patient Records regulations: The Federal rules restrict any use of the information to criminally investigate or prosecute any alcohol or drug abuse patient.[facility] the event this information is protected by the Federal Confidentiality of Alcohol and Drug Abuse Patient Records regulations: The Federal rules restrict any use of the information to criminally investigate or prosecute any alcohol or drug abuse patient.[facility] the event this information is protected by the Federal Confidentiality of Alcohol and Drug Abuse Patient Records regulations: The Federal rules restrict any use of the information to criminally investigate or prosecute any alcohol or drug abuse patient.[facility] the event this information is protected by the Federal Confidentiality of Alcohol and Drug Abuse Patient Records regulations: The Federal rules restrict any use of the information to criminally investigate or prosecute any alcohol or drug abuse patient.[facility] the event this information is protected by the Federal Confidentiality of Alcohol and Drug Abuse Patient Records regulations: The Federal rules restrict any use of the information to criminally investigate or prosecute any alcohol or drug abuse patient.[facility] the event this information is protected by the Federal Confidentiality of Alcohol and Drug Abuse Patient Records regulations: The Federal rules restrict any use of the information to criminally investigate or prosecute any alcohol or drug abuse patient.[facility] Reason for Visit (unrecogniz ed section and content) Reason Comments Radiology Mammogram Reason Comments Request for Medical Records Reason Comments Consult Parathyroid nodule Reason Comments Radiology NM Specialty Diagnoses / Procedures Referred By Contac t Referred To Contact MOLECULAR & FUNCTIONAL IMAGING Diagnoses Parathyroid abnormality (HCC) Procedures NM INJ PARATHYROID ADENOMA NONIMAGING NJX RP [id number] NON-IMG PROBE STUDY INTRAVENOUS Bishop Carpio MD [address] [place] [address] Molecular & Functional Imaging [address] [place] [address] Referral ID Status Reason Start Date Expiration Date V isits Requested Visits Authorized [id number] Closed Auto-Generate d Referral 06/02/2023 07/01/2024 1 1 Reason Comments Follow Up Reason Comments Annual Exam No window trimmer apprentice FOR RECORDS PERTAINING TO PATIENTS WHO ARE OR HAVE BEEN ENROLLED IN A CHEMICAL DEPENDENCY/SUBSTANCEABUSE PROGRAM, SOME INFORMATION MAY BE OMITTED. This clinical summary was aggregated from multiple sources. Caution should be exercised in using it in the provision of clinical care. This summary normalizes information from multiple sources, and as a consequence, information in this document may materially change the coding, format and clinical context of patient data. In addition, data may be omitted in some cases. CLINICAL DECISIONS SHOULD BE BASED ON THE PRIMARY CLINICAL RECORDS. [email or web address] [facility]. provides no warranty or guarantee of the accuracy or completeness of information in this document.
--- NOTE | 2025-02-11 07:54 | US_ITS ---
PROCEDURE: THYROID 02/11/2025 REASON FOR EXAM: THYROID NODULE, HAD FNA TECHNIQUE: Procedure Code: USTHY Modality: US Procedure: THYROID COMPARISON: Ultrasound of the thyroid dated 05/22/2023 FINDINGS: Right thyroid lobe size: 5.7 x 2.3 x 1.8 cm Left thyroid lobe size: 5.3 x 2.1 x 1.6 cm Isthmus: 0.2 cm Background parenchymal echotexture is homogeneous. Nodules: 1. Lobe: Right, Location: Upper, Size: 1.5 x 1.5 x 1.4 cm, Stability: Significant increase in size (a 20% or greater increase in at least two nodule dimensions and a minimum increase of 2 mm, or a 50% or greater increase in volume), previously 1.2 x 1.0 x 1.3 cm Composition: Mixed cystic and solid (+1) Echogenicity: Hypoechoic (+2) Margin: Smooth (+0) Shape: Wider than tall (+0) Echogenic Foci: None (+0) TI-RADS: 3 2. Lobe: Right, Location: Mid to lower, Size: 2.6 x 2.0 x 1.8 cm, Stability: Minimally larger, previously 2.4 x 1.4 x 2.0 cm Composition: Mixed cystic and solid (+1) Echogenicity: Hypoechoic (+2) Margin: Smooth (+0) Shape: Wider than tall (+0) Echogenic Foci: None (+0) TI-RADS: 3 3. Lobe: Right, Location: Mid, Size: 1.1 x 1.2 x 0.7 cm, Stability: Minimally larger, previously 0.8 x 0.5 x 1.0 cm. Composition: Solid or almost completely solid (+2) Echogenicity: Hypoechoic (+2) Margin: Smooth (+0) Shape: Wider than tall (+0) Echogenic Foci: None (+0) TI-RADS: 4 4. Lobe: Left, Location: Upper, Size: 0.7 x 0.7 x 0.3 cm, Stability: Stable Composition: Solid or almost completely solid (+2) Echogenicity: Hypoechoic (+2) Margin: Smooth (+0) Shape: Wider than tall (+0) Echogenic Foci: None (+0) TI-RADS: 4 5. Lobe: Left, Location: Mid, Size: 0.9 x 0.6 x 0.9 cm, Stability: New Composition: Mixed cystic and solid (+1) Echogenicity: Hyper to Isoechoic (+1) Margin: Smooth (+0) Shape: Wider than tall (+0) Echogenic Foci: None (+0) TI-RADS: 2 6. Lobe: Left, Location: Mid, Size: 2.3 x 2.0 x 1.4 cm, Stability: Minimally larger, previously 2.0 x 1.6 x 1.0 cm. Composition: Solid or almost completely solid (+2) Echogenicity: Hypoechoic (+2) Margin: Smooth (+0) Shape: Wider than tall (+0) Echogenic Foci: None (+0) TI-RADS: 4 Redemonstrated left parathyroid lesion measuring 1.7 x 1.2 x 0.9 cm, previously 1.8 x 0.8 x 0.8 cm. US/Thyroid IMPRESSION: Multiple thyroid nodules are noted, with interval growth. The thyroid nodule 6 meets criteria for FNA according to ACR guidelines. Additional thyroid nodules meets criteria for sonographic follow-u p. Redemonstrated left parathyroid lesion measuring 1.7 x 1.2 x 0.9 cm, previously 1.8 x 0.8 x 0.8 cm. RECOMMENDATION: Based on most suspicious nodule. Nodule size = largest diameter Only evaluate nodule if =>5 mm. Growth > 20% in 2 dimensions = worsening. Follow up to 4 nodules. Recommend biopsy for no more than 2 nodules. Reading Location: [id number]
== END | disposition home or self-care (01) ==
LOC: US 07:51
PROVIDERS: PCP Family Medicine; Referring Provider Family Medicine; Visit Provider Family Medicine
DX: E04.1 Nontoxic single thyroid nodule (principal)
CPT/HCPCS: 76536